=== PATIENT | male | born 1940 | race Caucasian/White ===

== ENCOUNTER → 2018-03-17 08:37 | Outpatient (CLI) | payer OTHER, SELFPAY ==
--- NOTE | 2018-03-17 | DI.RAD.S_ITS ---
PROCEDURE: XR LUMBAR SPINE 2-3V INDICATIONS: LUMBAR PAIN/HISTORY OF COMPRESSION FRACTURE TECHNIQUE: 2 views of the lumbar spine were acquired. COMPARISON: [facility], CT, L-SPINE WITHOUT CONTRAST, 09/27/2017, 8:52. [facility], MR, L-SPINE W&WO CONTRAST, 09/27/2017, 10:49. FINDINGS: Bones: 5 [id number] vertebrae are present. There is generalized osteopenia with normal bony alignment. Compared to prior exam, is a compression fracture of T11 has compressed further, now with 90% volume loss and anterior gibbous formation. A compression fracture of L1 has developed in the interim, prominent defects at the superior and inferior endplates with volume loss estimated at 33%. Prominent Schmorl's node inferior endplate L3 is unchanged. Mild compression fracture of L5 is unchanged. 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 Soft tissues: Overlying bowel gas pattern is normal. Vascular calcifications. IMPRESSION: 1. Significant loss of vertebral body height at the T11 fracture site since last exam, now near vertebral plana with gibbous formation. 2. New fracture of L1. Approximately 33% volume loss centrally. 3. Prior fracture of L5 as previously described appear unchanged. 4. Prominent Schmorl's node inferior endplate L3 unchanged. Dictated by: Ascencion Zamarripa M.D. on 03/17/2018 at 9:28 Approved by: Ascencion Zamarripa M.D. on 03/17/2018 at 9:38
== END ==
PROVIDERS: Family Provider Family Medicine; PCP Family Medicine; Visit Provider Family Medicine
DX: S32.050A Wedge compression fracture of fifth lumbar vertebra, initial encounter for closed fracture (principal); S32.010A Wedge compression fracture of first lumbar vertebra, initial encounter for closed fracture
CPT/HCPCS: 72100

== ENCOUNTER → 2018-03-31 12:09 | Outpatient (CLI) | payer OTHER, SELFPAY ==
--- NOTE | 2018-03-31 | DI.CT.S_ITS ---
PROCEDURE: CT LUMBAR SPINE WO CON INDICATIONS: COMPRESSION FRACTURES TECHNIQUE: Noncontrast 3 mm thick sections acquired from the T12 level to the sacrum. Sagittal and coronal reformats were constructed. For radiation dose reduction, the following was used: automated exposure control. COMPARISON: [facility], MR, L-SPINE W&WO CONTRAST, 09/27/2017, 10:49. [facility], CT, L-SPINE WITHOUT CONTRAST, 09/27/2017, 8:52. [facility], CR, XR LUMBAR SPINE 2-3V, 03/17/2018, 8:30. FINDINGS: Image quality: Excellent. Bones: There is normal bony alignment. No pars defects are seen. There is a likely subacute T11 compression deformity seen, with an approximately 80% loss of height anteriorly. Mild posterior displacement of fracture fragments can be seen, as on series 5 image 38, measuring 5 mm. At the inferior endplate of L1, there is a remote appearing compression deformity seen, with 30% loss of height. This is new/progressed compared to the 09/27/17 CT examination. No posterior displacement of fracture fragments can be seen. At the L5 level, there is a stable compression deformity seen, with 40% loss of height centrally. No posterior displacement of fracture fragments can be seen. T10-T11: Moderate to severe loss of disc height is seen. There is partial fusion of the vertebral bodies. There is mild to moderate right-sided and moderate left-sided neural foraminal narrowing seen. [id number] central canal narrowing is seen, which is related to the posterior displacement fracture fragments. T11-T12: Moderate loss of disc height is seen. Partial fusion of the vertebral bodies can be seen. There is moderate right-sided and no significant left-sided neural foraminal narrowing seen. The central canal is widely patent. T12-L1: The disc height is relatively well-preserved. Bridging anterior osteophytes are seen. No significant disc bulge is seen. No significant neural foraminal or central canal narrowing are seen. L1-L2: The disc height is well-preserved. Mild generalized disc bulge is seen. Moderate bilateral neural foraminal narrowing is seen. Mild central canal narrowing is seen. L2-L3: The disc height is well-preserved. Moderate disc bulge is seen, which is eccentric to the left. There is moderate bilateral neural foraminal narrowing seen, left worse than right. Moderate central canal narrowing is seen. L3-L4: The disc height is well-preserved. There is moderate bilateral neural foraminal narrowing seen, right worse than left. Moderate central canal narrowing is seen. L4-L5: The disc height is well-preserved. Nzvy-mn-ycmawusm disc bulge is seen. Moderate facet hypertrophy is seen. Cdhz-jn-liapxvwu bilateral neural foraminal narrowing is seen. At least moderate central canal narrowing is seen. L5-S1: The disc height is well-preserved. Mild generalized disc bulge is seen. Moderate facet joint hypertrophy is seen. No significant neural foraminal or central canal narrowing are seen. Soft tissues: No retroperitoneal masses or hematomas. Visualized aorta is normal in caliber. Atherosclerotic calcification is noted. IMPRESSION: Prominent T11 compression deformity, which is similar to the relatively recent prior plain film. Progression of a compression deformity at the inferior endplate of L1. Stable L5 compression deformity. Multiple levels of degenerative change are seen. Dictated by: Asael High M.D. on 03/31/2018 at 11:34 Approved by: Asael High M.D. on 03/31/2018 at 11:46
== END ==
PROVIDERS: PCP Family Medicine; Visit Provider Family Medicine
DX: M48.54XA Collapsed vertebra, not elsewhere classified, thoracic region, initial encounter for fracture (principal); M51.34 Other intervertebral disc degeneration, thoracic region
CPT/HCPCS: 72131

== ENCOUNTER 2018-04-06 11:15 | Outpatient (RCR) | payer OTHER, SELFPAY ==
--- NOTE | 2018-03-20 08:18 | PT.OIE ---
Current Diagnoses Collapsed vertebra, not elsewhere classified, cervicothoracic region, subsequent encounter for fracture with routine healing (03/14/18) Dorsalgia, unspecified (03/14/18) Provider Visit Care Team Role Provider Type Paco Bills MD Attending Provider Physician Family Provider Primary Care Provider Specialty: Family Practice Address: [address] [place] [address], [id number] Email: Physical Therapy Initial Evaluation PT-OP-A Visit Information Start: 03/15/18 08:00 Freq: Status: Active Protocol: Document 03/14/18 11:15 EA (Rec: 03/15/18 08:14 EA [id number]) Out-Patient Physical Therapy Visit Information Visit Information Visit Type Initial Evaluation Visit Start Time 10:30 Visit Stop Time 11:10 Total Visit Minutes 40 Visit Number 1 Number of MUSKRAT TRAPPER Visits 0 Evaluation Information Evaluation Date 03/14/18 PT-OP-B Current Condition Start: 03/15/18 08:00 Freq: Status: Active Protocol: Document 03/14/18 11:15 EA (Rec: 03/15/18 08:14 EA [id number]) Current Condition History of Current Condition Onset Date 09/26/18 Current Complaints Intermittent localized low and mid back pain History of Current Condition Present condition started after a fall on 09/26/18 when patient missed a steps going down the stairs hitting his left side of the body. Patient reports able to manage back pain with rest and OTC meds on the same day; however the next day patient was forced to call 911 due to extreme pain and difficulty in all mobility . Patient was brought to E.R. but was not hospitalized until they found out that he had a compression fracture. Medical reports indicated compression# to L5 and T11, Scmorl's node to L3. Patient was hospitalized at for 6 days and was then sent home without PT recommendation. Prior Treatments and Tests None. Pain medications- per patient Future Testing and Treatments Planned Will follow up with doctor at todays date. PT-OP-C Subjective Start: 03/15/18 08:00 Freq: Status: Active Protocol: Document 03/15/18 07:26 EA (Rec: 03/20/18 08:02 EA [id number]) OP-PT Subjective Patient Comments Patient Comments Patient c/o of localized mid to low back sore pain with R > left rated 7/10 at worst and with activity. Clarissa numbness to both LE's. Patient Reported Progress Same Patient Questionnaires Oswestry Low Back Index Oswestry Impairment 40 to 59% Impaired (Score 40- 59) PT-OP-F Manual Assessment Start: 03/15/18 08:00 Freq: Status: Active Protocol: Document 03/15/18 07:26 EA (Rec: 03/20/18 08:02 EA [id number]) Manual Assessments Soft Tissue Assessment Soft Tissue Mobility Assessment Tightness to both trunk side flexors, trunk flexors and rotators. Tightness to both hip flexors, pectorals, Shoulder internal rotators, neck ectensors. Joint Mobility Assessment Joint Mobility Assessment Limited joint mobility to entire spine column with muscle guarding. PT-OP-G Mobility & Gait Start: 03/15/18 08:00 Freq: Status: Active Protocol: Document 03/15/18 07:26 EA (Rec: 03/20/18 08:02 EA [id number]) OP Mobility Evaluation Bed Mobility Rolling indep with high difficulty Supine to and from Sit Indep with high difficulty Transfers Sit to Stand Indep Bed to Chair Transfers indep Functional Movements Lifting and Carrying High dificulty with pain and wrong body mechanics Squats With moderate difficulty Stair Climbing Evaluation Evaluation Level of Assist On Stairs Independent Devices Stair Climbing Assistive Devices None Technique/Endurance Stair Climbing Direction Ascend and Descend Stair Climbing Technique Step to Step PT-OP-J Posture/Palpation/Skin Start: 03/15/18 08:00 Freq: Status: Active Protocol: Document 03/15/18 07:26 EA (Rec: 03/20/18 08:02 EA [id number]) Posture Evaluation Position Standing Evaluation View Lateral Head/C-Spine Posture Forward Head T-Spine Posture Increased Kyphosis L-Spine Posture Decreased Lordosis Pelvis Posture Posterior Tilted Hip Posture (L) Flexed (R) Flexed Comments Posture Comments Severe fwd head, increased thoracic kyphosis, right shoulder depressed, right hip elevated, right post rib hump, decreased lumbar lordosis with flexed hip. Palpation Assessment Location One Palpation Location Right parathoracis, and paralumbars Palpation Findings Soft Tissue Tightness Muscle Guarding Tenderness PT-OP-K Range of Motion Start: 03/15/18 08:00 Freq: Status: Active Protocol: Document 03/15/18 07:26 EA (Rec: 03/20/18 08:02 EA [id number]) Lumbar Spine Range of Motion Lumbar Spine Active Percentage Testing Position standing Extension 30 Rotation Left 45 Rotation Right 45 Lateral Flexion Left 40 Lateral Flexion Right 50 ROM Limitations Soft Tissue Tightness Bony Restriction Pain Comments Flexion is not tested due to pre-caution. 6 months post compression# with no imaging follow up. Gross limbs AROM. Both UE's is limited with shoulder ER and Retraction. Both LE's is limited with Hip extension and IR. PT-OP-L Special Tests Start: 03/15/18 08:00 Freq: Status: Active Protocol: Document 03/15/18 07:26 EA (Rec: 03/20/18 08:02 EA [id number]) Special Tests Lumbar Spine Special Tests Other- 1 Test Results All test to lumbar and thoracic spine is not tested due to pre-caution Comments No follow up diagnostic imaging perform after the last diagnostic test. PT-OP-Q Treatments Start: 03/15/18 08:00 Freq: Status: Active Protocol: Document 03/15/18 07:26 EA (Rec: 03/20/18 08:02 EA [id number]) Self-Care/Home Management Treatment Education Patient Education Body Mechanics Pain Management Posture Safety PT-OP-T Assessment and Plan Start: 03/15/18 08:00 Freq: Status: Active Protocol: Document 03/15/18 07:26 EA (Rec: 03/20/18 08:02 EA [id number]) Physical Therapy Assessment Rehab Potential Rehabilitation Potential Fair Assessment Summary Assessment Pleasant 77 y/o male patient who was diagnosed with compression fracture at T11, L3, and L5 level on 09/27/2017 . Patient presented with difficulty in most bed mobility, limited walking and lifting mobility due to pain and muscle guarding to mid and low back region. 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 Limited ROM to entire spine may be due to fixed posture with pain and muscle gurding. Special test to spine were not performed due to lack of follow up dignostic imaging since the last imaging performed on 02/2018. In my professional opinion patient would benefit fairly with skilled PT to address the pain complaint and improve posture as tolerated. However, it is recommended that patient should undergo follow up bone imaging prior to commencing therapeutic exercises. Physical Therapy Plan Frequency and Duration Frequency of Treatment 2x/Week Plan of Care Start Date 03/14/18 Plan of Care End Date 05/10/18 Therapeutic Interventions Therapeutic Interventions Home Exercise Program Manual Therapy Self-Care/Home Management Soft Tissue Mobilization Therapeutic Exercises Modalities Cold Pack/Ice Massage Electric Stimulation Hot Packs Ultrasound Other Referrals/Consults Referrals/Consults Recommended referred back to physician for spine imaging Next Visit Focus/Plan Next Note Type Treatment Note Next Visit Plan Home exercises program with no spine flexion exercises Please Sign and Return: I have reviewed this Plan of Care and certify that the skilled therapy services above are required to meet the patient???s needs. Physician Signature Date Printed Name and Credentials Clinical Instructor Signature Printed Name and Credentials
--- NOTE | 2018-03-20 09:19 | PT.OIE ---
Current Diagnoses Collapsed vertebra, not elsewhere classified, cervicothoracic region, subsequent encounter for fracture with routine healing (03/14/18) Dorsalgia, unspecified (03/14/18) Provider Visit Care Team Role Provider Type Paco Bills MD Attending Provider Physician Family Provider Primary Care Provider Specialty: Family Practice Address: [address] [place] [address], [id number] Email: Physical Therapy Initial Evaluation PT-OP-A Visit Information Start: 03/15/18 08:00 Freq: Status: Active Protocol: Document 03/14/18 11:15 EA (Rec: 03/15/18 08:14 EA [id number]) Out-Patient Physical Therapy Visit Information Visit Information Visit Type Initial Evaluation Visit Start Time 10:30 Visit Stop Time 11:10 Total Visit Minutes 40 Visit Number 1 Number of REFERENCE AND INSTRUCTION LIBRARIAN Visits 0 Evaluation Information Evaluation Date 03/14/18 PT-OP-B Current Condition Start: 03/15/18 08:00 Freq: Status: Active Protocol: Document 03/14/18 11:15 EA (Rec: 03/15/18 08:14 EA [id number]) Current Condition History of Current Condition Onset Date 09/26/18 Current Complaints Intermittent localized low and mid back pain History of Current Condition Present condition started after a fall on 09/26/18 when patient missed a steps going down the stairs hitting his left side of the body. Patient reports able to manage back pain with rest and OTC meds on the same day; however the next day patient was forced to call 911 due to extreme pain and difficulty in all mobility . Patient was brought to E.R. but was not hospitalized until they found out that he had a compression fracture. Medical reports indicated compression# to L5 and T11, Scmorl's node to L3. Patient was hospitalized at for 6 days and was then sent home without PT recommendation. Prior Treatments and Tests None. Pain medications- per patient Future Testing and Treatments Planned Will follow up with doctor at todays date. PT-OP-C Subjective Start: 03/15/18 08:00 Freq: Status: Active Protocol: Document 03/15/18 07:26 EA (Rec: 03/20/18 08:02 EA [id number]) OP-PT Subjective Patient Comments Patient Comments Patient c/o of localized mid to low back sore pain with R > left rated 7/10 at worst and with activity. Clarissa numbness to both LE's. Patient Reported Progress Same Patient Questionnaires Oswestry Low Back Index Oswestry Impairment 40 to 59% Impaired (Score 40- 59) PT-OP-F Manual Assessment Start: 03/15/18 08:00 Freq: Status: Active Protocol: Document 03/15/18 07:26 EA (Rec: 03/20/18 08:02 EA [id number]) Manual Assessments Soft Tissue Assessment Soft Tissue Mobility Assessment Tightness to both trunk side flexors, trunk flexors and rotators. Tightness to both hip flexors, pectorals, Shoulder internal rotators, neck ectensors. Joint Mobility Assessment Joint Mobility Assessment Limited joint mobility to entire spine column with muscle guarding. PT-OP-G Mobility & Gait Start: 03/15/18 08:00 Freq: Status: Active Protocol: Document 03/15/18 07:26 EA (Rec: 03/20/18 08:02 EA [id number]) OP Mobility Evaluation Bed Mobility Rolling indep with high difficulty Supine to and from Sit Indep with high difficulty Transfers Sit to Stand Indep Bed to Chair Transfers indep Functional Movements Lifting and Carrying High dificulty with pain and wrong body mechanics Squats With moderate difficulty Stair Climbing Evaluation Evaluation Level of Assist On Stairs Independent Devices Stair Climbing Assistive Devices None Technique/Endurance Stair Climbing Direction Ascend and Descend Stair Climbing Technique Step to Step PT-OP-J Posture/Palpation/Skin Start: 03/15/18 08:00 Freq: Status: Active Protocol: Document 03/15/18 07:26 EA (Rec: 03/20/18 08:02 EA [id number]) Posture Evaluation Position Standing Evaluation View Lateral Head/C-Spine Posture Forward Head T-Spine Posture Increased Kyphosis L-Spine Posture Decreased Lordosis Pelvis Posture Posterior Tilted Hip Posture (L) Flexed (R) Flexed Comments Posture Comments Severe fwd head, increased thoracic kyphosis, right shoulder depressed, right hip elevated, right post rib hump, decreased lumbar lordosis with flexed hip. Palpation Assessment Location One Palpation Location Right parathoracis, and paralumbars Palpation Findings Soft Tissue Tightness Muscle Guarding Tenderness PT-OP-K Range of Motion Start: 03/15/18 08:00 Freq: Status: Active Protocol: Document 03/15/18 07:26 EA (Rec: 03/20/18 08:02 EA [id number]) Lumbar Spine Range of Motion Lumbar Spine Active Percentage Testing Position standing Extension 30 Rotation Left 45 Rotation Right 45 Lateral Flexion Left 40 Lateral Flexion Right 50 ROM Limitations Soft Tissue Tightness Bony Restriction Pain Comments Flexion is not tested due to pre-caution. 6 months post compression# with no imaging follow up. Gross limbs AROM. Both UE's is limited with shoulder ER and Retraction. Both LE's is limited with Hip extension and IR. PT-OP-L Special Tests Start: 03/15/18 08:00 Freq: Status: Active Protocol: Document 03/15/18 07:26 EA (Rec: 03/20/18 08:02 EA [id number]) Special Tests Lumbar Spine Special Tests Other- 1 Test Results All test to lumbar and thoracic spine is not tested due to pre-caution Comments No follow up diagnostic imaging perform after the last diagnostic test. PT-OP-Q Treatments Start: 03/15/18 08:00 Freq: Status: Active Protocol: Document 03/15/18 07:26 EA (Rec: 03/20/18 08:02 EA [id number]) Self-Care/Home Management Treatment Education Patient Education Body Mechanics Pain Management Posture Safety PT-OP-T Assessment and Plan Start: 03/15/18 08:00 Freq: Status: Active Protocol: Document 03/15/18 07:26 EA (Rec: 03/20/18 08:02 EA [id number]) Physical Therapy Assessment Rehab Potential Rehabilitation Potential Fair Evaluation Complexity Number of Personal Factors/Comorbidities 1-2 Number of Body Systems Impaired 3 Clinical Presentation at Evaluation Evolving Impairments Impairments Activity Tolerance Functional Activities Pain Posture ROM Soft Tissue Mobility Goals Four Impairment Grade 2 tenderness to parathoracis and paralumbars Radio Commentator Goal (LTG) Patient will exhibit Grade 1 or 0 tenderness to paralumbars and parathoracis to decrease guarding and improve spinal mobility. LTG Duration 4 wks. Three Impairment Improper lifting and bed mobility body mechanics Radio Commentator Goal (LTG) Patient will exhibit automatic right body mechanics with all bed mobility and lifting from floor to hip. LTG Duration 4 wks Two Impairment Low back/mid back pain complaint of 7/10 with activity. Fpc Goal (LTG) Patient will reports 3/10 pain scale at mid and low back region with activity LTG Duration 4 wks. One Impairment Severe thoracic kyphosis and posterior pelvic tilt with flat lumbar curve. Radio Commentator Goal (LTG) Patient will exhibit improve thoracic and lumbar posture posture to mild degree LTG Duration 6 wks Assessment Summary Assessment Pleasant 77 y/o male patient who was diagnosed with compression fracture at T11, L3, and L5 level on 09/27/2017 . Patient presented with difficulty in most bed mobility, limited walking and lifting mobility due to pain and muscle guarding to mid and low back region. 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 Limited ROM to entire spine may be due to fixed posture with pain and muscle guarding. Special test to spine were not performed due to lack of follow up diagnostic imaging since the last imaging performed on 02/2018. In my professional opinion patient would benefit fairly with skilled PT to address the pain complaint and improve posture as tolerated. However, it is recommended that patient should undergo follow up bone imaging prior to commencing therapeutic exercises. Physical Therapy Plan Frequency and Duration Frequency of Treatment 2x/Week Plan of Care Start Date 03/14/18 Plan of Care End Date 05/10/18 Therapeutic Interventions Therapeutic Interventions Home Exercise Program Manual Therapy Self-Care/Home Management Soft Tissue Mobilization Therapeutic Exercises Modalities Cold Pack/Ice Massage Electric Stimulation Hot Packs Ultrasound Other Referrals/Consults Referrals/Consults Recommended referred back to physician for spine imaging Next Visit Focus/Plan Next Note Type Treatment Note Next Visit Plan Home exercises program with no spine flexion exercises Please Sign and Return: I have reviewed this Plan of Care and certify that the skilled therapy services above are required to meet the patient???s needs. Physician Signature Date Printed Name and Credentials Clinical Instructor Signature Printed Name and Credentials
--- NOTE | 2018-04-07 15:45 | PT.OTN ---
Current Diagnoses Collapsed vertebra, not elsewhere classified, cervicothoracic region, subsequent encounter for fracture with routine healing (04/06/18) Dorsalgia, unspecified (04/06/18) Physical Therapy Treatment Note PT-OP-A Visit Information Start: 03/15/18 08:00 Freq: Status: Active Protocol: Document 04/06/18 11:15 AMB (Rec: 04/07/18 07:25 AMB [id number]) Out-Patient Physical Therapy Visit Information Visit Information Visit Type Treatment Note Visit Start Time 11:15 Visit Stop Time 12:00 Total Visit Minutes 45 Visit Number 2 Evaluation Information Evaluation Date 03/14/18 PT-OP-B Current Condition Start: 03/15/18 08:00 Freq: Status: Active Protocol: Document 03/14/18 11:15 EA (Rec: 03/15/18 08:14 EA [id number]) Current Condition History of Current Condition Onset Date 09/26/18 Current Complaints Intermittent localized low and mid back pain History of Current Condition Present condition started after a fall on 09/26/18 when patient missed a steps going down the stairs hitting his left side of the body. Patient reports able to manage back pain with rest and OTC meds on the same day; however the next day patient was forced to call 911 due to extreme pain and difficulty in all mobility . Patient was brought to E.R. but was not hospitalized until they found out that he had a compression fracture. Medical reports indicated compression# to L5 and T11, Scmorl's node to L3. Patient was hospitalized at for 6 days and was then sent home without PT recommendation. Prior Treatments and Tests None. Pain medications- per patient Future Testing and Treatments Planned Will follow up with doctor at todays date. PT-OP-C Subjective Start: 03/15/18 08:00 Freq: Status: Active Protocol: Document 04/06/18 11:15 AMB (Rec: 04/07/18 07:25 AMB [id number]) OP-PT Subjective Patient Comments Patient Comments Pt attends with CT and X-ray, reports also reviewed in [facility]. Pt feels pain is quite bad still, maybe worse in the last week, but not sure why. Sleeps well, but pain in low back with bed mobility. Walking about a mile, but very hunched forward. PT-OP-F Manual Assessment Start: 03/15/18 08:00 Freq: Status: Active Protocol: Document 03/15/18 07:26 EA (Rec: 03/20/18 08:02 EA [id number]) Manual Assessments Soft Tissue Assessment Soft Tissue Mobility Assessment Tightness to both trunk side flexors, trunk flexors and rotators. Tightness to both hip flexors, pectorals, Shoulder internal rotators, neck ectensors. Joint Mobility Assessment Joint Mobility Assessment Limited joint mobility to entire spine column with muscle guarding. PT-OP-G Mobility & Gait Start: 03/15/18 08:00 Freq: Status: Active Protocol: Document 03/15/18 07:26 EA (Rec: 03/20/18 08:02 EA [id number]) OP Mobility Evaluation Bed Mobility Rolling indep with high difficulty Supine to and from Sit Indep with high difficulty Transfers Sit to Stand Indep Bed to Chair Transfers indep Functional Movements Lifting and Carrying High dificulty with pain and wrong body mechanics Squats With moderate difficulty Stair Climbing Evaluation Evaluation Level of Assist On Stairs Independent Devices Stair Climbing Assistive Devices None Technique/Endurance Stair Climbing Direction Ascend and Descend Stair Climbing Technique Step to Step PT-OP-J Posture/Palpation/Skin Start: 03/15/18 08:00 Freq: Status: Active Protocol: Document 03/15/18 07:26 EA (Rec: 03/20/18 08:02 EA [id number]) Posture Evaluation Position Standing Evaluation View Lateral Head/C-Spine Posture Forward Head T-Spine Posture Increased Kyphosis L-Spine Posture Decreased Lordosis Pelvis Posture Posterior Tilted Hip Posture (L) Flexed (R) Flexed Comments Posture Comments Severe fwd head, increased thoracic kyphosis, right shoulder depressed, right hip elevated, right post rib hump, decreased lumbar lordosis with flexed hip. Palpation Assessment Location One Palpation Location Right parathoracis, and paralumbars Palpation Findings Soft Tissue Tightness Muscle Guarding Tenderness PT-OP-K Range of Motion Start: 03/15/18 08:00 Freq: Status: Active Protocol: Document 03/15/18 07:26 EA (Rec: 03/20/18 08:02 EA [id number]) Lumbar Spine Range of Motion Lumbar Spine Active Percentage Testing Position standing Extension 30 Rotation Left 45 Rotation Right 45 Lateral Flexion Left 40 Lateral Flexion Right 50 ROM Limitations Soft Tissue Tightness Bony Restriction Pain Comments Flexion is not tested due to pre-caution. 6 months post compression# with no imaging follow up. Gross limbs AROM. Both UE's is limited with shoulder ER and Retraction. Both LE's is limited with Hip extension and IR. PT-OP-L Special Tests Start: 03/15/18 08:00 Freq: Status: Active Protocol: Document 03/15/18 07:26 EA (Rec: 03/20/18 08:02 EA [id number]) Special Tests Lumbar Spine Special Tests Other- 1 Test Results All test to lumbar and thoracic spine is not tested due to pre-caution Comments No follow up diagnostic imaging perform after the last diagnostic test. PT-OP-Q Treatments Start: 03/15/18 08:00 Freq: Status: Active Protocol: Document 04/06/18 11:15 AMB (Rec: 04/07/18 07:32 AMB [email or web address]) Therapeutic Exercises Supine Exercises 5 Supine Exercise Name hamstring stretch Side bilateral Comments passive 4 Supine Exercise Name hip flexor stretch Side bilateral Comments passive 3 Supine Exercise Name hooklying marches Side bilateral 2 Supine Exercise Name trunk rotation Comments very small ROM, hooklying 1 Supine Exercise Name heel slides Side bilateral Standing Exercises 1 Standing Exercise Name wall posture Comments may use towel/pillow due to spinous process on wall discomfort Therapeutic Activity Therapeutic Activity 1 Name Bed mobility Comments rolling, sidelying to sit PT-OP-R Modalities Start: 03/15/18 08:00 Freq: Status: Active Protocol: Document 04/06/18 11:15 AMB (Rec: 04/07/18 07:32 AMB [email or web address]) Electric Stimulation Electric Stimulation Interferential Current (IFC) Body Location low back Duration (Minutes) 10 Patient Position Sitting Combined With Heat/Cold Hot Pack PT-OP-T Assessment and Plan Start: 03/15/18 08:00 Freq: Status: Active Protocol: Document 04/06/18 11:15 AMB (Rec: 04/07/18 07:27 AMB [email or web address]) Physical Therapy Assessment Assessment Summary Assessment Pt did not tolerate hooklying (with wedge and 4 pillows) very well. States that he can tolerate being supine in his bed. Will progress exercises in seated and standing, working on upright posture avoiding trunk flexion. Physical Therapy Plan Frequency and Duration Frequency of Treatment 2x/Week Plan of Care Start Date 03/14/18 Plan of Care End Date 05/10/18 Next Visit Focus/Plan Next Note Type Treatment Note Next Visit Plan progress core stability, body mechanics, avoiding supine for now Please Sign and Return: I have reviewed this Plan of Care and certify that the skilled therapy services above are required to meet the patient?s needs. Physician Signature Date Printed Name and Credentials Clinical Instructor Signature Printed Name and Credentials
--- NOTE | 2018-06-12 12:34 | PT.OPDS ---
Current Diagnoses Collapsed vertebra, not elsewhere classified, cervicothoracic region, subsequent encounter for fracture with routine healing (04/06/18) Dorsalgia, unspecified (04/06/18) Provider Visit Care Team Role Provider Type Paco Bills MD Attending Provider Physician Family Provider Primary Care Provider Specialty: Family Practice Address: [address] [place] [address], [phone] Email: Visit Number Visit Number 2 Discharge Summary PT-OP-B Current Condition Start: 03/15/18 08:00 Freq: Status: Active Protocol: Document 03/14/18 11:15 EA (Rec: 03/15/18 08:14 EA [id number]) Current Condition History of Current Condition Onset Date 09/26/18 Current Complaints Intermittent localized low and mid back pain History of Current Condition Present condition started after a fall on 09/26/18 when patient missed a steps going down the stairs hitting his left side of the body. Patient reports able to manage back pain with rest and OTC meds on the same day; however the next day patient was forced to call 911 due to extreme pain and difficulty in all mobility . Patient was brought to E.R. but was not hospitalized until they found out that he had a compression fracture. Medical reports indicated compression# to L5 and T11, Scmorl's node to L3. Patient was hospitalized at for 6 days and was then sent home without PT recommendation. Prior Treatments and Tests None. Pain medications- per patient Future Testing and Treatments Planned Will follow up with doctor at todays date. PT-OP-C Subjective Start: 03/15/18 08:00 Freq: Status: Active Protocol: Document 06/12/18 12:32 EA (Rec: 06/12/18 12:34 EA [id number]) OP-PT Subjective Patient Comments Patient Comments Pt did not return call in the past weeks though rfp writer left a message twice. Patient is no longer attending PT and has not been scheduled since the initial tretament. PT-OP-F Manual Assessment Start: 03/15/18 08:00 Freq: Status: Active Protocol: Document 03/15/18 07:26 EA (Rec: 03/20/18 08:02 EA [id number]) Manual Assessments Soft Tissue Assessment Soft Tissue Mobility Assessment Tightness to both trunk side flexors, trunk flexors and rotators. Tightness to both hip flexors, pectorals, Shoulder internal rotators, neck ectensors. Joint Mobility Assessment Joint Mobility Assessment Limited joint mobility to entire spine column with muscle guarding. PT-OP-G Mobility & Gait Start: 03/15/18 08:00 Freq: Status: Active Protocol: Document 03/15/18 07:26 EA (Rec: 03/20/18 08:02 EA [id number]) OP Mobility Evaluation Bed Mobility Rolling indep with high difficulty Supine to and from Sit Indep with high difficulty Transfers Sit to Stand Indep Bed to Chair Transfers indep Functional Movements Lifting and Carrying High dificulty with pain and wrong body mechanics Squats With moderate difficulty Stair Climbing Evaluation Evaluation Level of Assist On Stairs Independent Devices Stair Climbing Assistive Devices None Technique/Endurance Stair Climbing Direction Ascend and Descend Stair Climbing Technique Step to Step PT-OP-J Posture/Palpation/Skin Start: 03/15/18 08:00 Freq: Status: Active Protocol: Document 03/15/18 07:26 EA (Rec: 03/20/18 08:02 EA [id number]) Posture Evaluation Position Standing Evaluation View Lateral Head/C-Spine Posture Forward Head T-Spine Posture Increased Kyphosis L-Spine Posture Decreased Lordosis Pelvis Posture Posterior Tilted Hip Posture (L) Flexed (R) Flexed Comments Posture Comments Severe fwd head, increased thoracic kyphosis, right shoulder depressed, right hip elevated, right post rib hump, decreased lumbar lordosis with flexed hip. Palpation Assessment Location One Palpation Location Right parathoracis, and paralumbars Palpation Findings Soft Tissue Tightness Muscle Guarding Tenderness PT-OP-K Range of Motion Start: 03/15/18 08:00 Freq: Status: Active Protocol: Document 03/15/18 07:26 EA (Rec: 03/20/18 08:02 EA [id number]) Lumbar Spine Range of Motion Lumbar Spine Active Percentage Testing Position standing Extension 30 Rotation Left 45 Rotation Right 45 Lateral Flexion Left 40 Lateral Flexion Right 50 ROM Limitations Soft Tissue Tightness Bony Restriction Pain Comments Flexion is not tested due to pre-caution. 6 months post compression# with no imaging follow up. Gross limbs AROM. Both UE's is limited with shoulder ER and Retraction. Both LE's is limited with Hip extension and IR. PT-OP-L Special Tests Start: 03/15/18 08:00 Freq: Status: Active Protocol: Document 03/15/18 07:26 EA (Rec: 03/20/18 08:02 EA [id number]) Special Tests Lumbar Spine Special Tests Other- 1 Test Results All test to lumbar and thoracic spine is not tested due to pre-caution Comments No follow up diagnostic imaging perform after the last diagnostic test. PT-OP-T Assessment and Plan Start: 03/15/18 08:00 Freq: Status: Active Protocol: Document 06/12/18 12:32 EA (Rec: 06/12/18 12:34 EA [id number]) Physical Therapy Assessment Assessment Summary Assessment Pt is discharge to PT due to not attending PT session. Physical Therapy Plan Discharge Physical Therapy Discharge Reasons No Longer Attending PT
== END 2018-08-04 09:06 ==
LOC: PHYS 11:15
PROVIDERS: Family Provider Family Medicine; PCP Family Medicine; Visit Provider Family Medicine
DX: M54.9 Dorsalgia, unspecified (principal); M48.53XD Collapsed vertebra, not elsewhere classified, cervicothoracic region, subsequent encounter for fracture with routine healing
CPT/HCPCS: 97014; 97110; 97162; 97535; G0283

== ENCOUNTER 2019-02-05 11:12 | Emergency (ER) | payer OTHER, SELFPAY ==
[2019-02-05 11:24] VITALS: BP 110/57; PULSE 54; RESP 18; TEMP 36.7; O2SAT 100
--- NOTE | 2019-02-05 11:27 | DI.RAD.S_ITS ---
PROCEDURE: XR CHEST 1V INDICATIONS: chest pain TECHNIQUE: One view of the chest was acquired. COMPARISON: [facility], , CHEST 2 VIEW, 12/14/2016, 10:20. FINDINGS: Surgical changes and devices: None. Lungs and pleura: Mild pulmonary vascular congestion is seen. No pleural effusions or pneumothorax. Mediastinum: Torturous thoracic aorta is seen. Heart size is normal. Bones and chest wall: No suspicious bony lesions. Overlying soft tissues appear unremarkable. IMPRESSION: Cardiomegaly and mild congestion. No focal infiltrate or gross pneumothorax. Dictated by: Trav De Jesus M.D. on 02/05/2019 at 11:45 Approved by: Trav De Jesus M.D. on 02/05/2019 at 11:45
[2019-02-05 11:28] VITALS: BP 73/49; PULSE 55; RESP 21; O2SAT 97
[2019-02-05 11:30] VITALS: BP 79/52; PULSE 54; PULSE 56; RESP 18; RESP 21; O2SAT 97
--- NOTE | 2019-02-05 11:43 | ED.CHESTPAIN ---
HPI - Chest Pain General Chief Complaint: Chest Pain Stated Complaint: States he thinks he is having a heart attack Time Seen by Provider: 02/05/19 11:43 Source: patient Mode of arrival: ambulatory Limitations: no limitations History of Present Illness HPI narrative: This is a 78-year-old male comes to the emergency department with complaint of sudden onset of neck pressure that has now radiating to the chest. Patient states that it is quite uncomfortable. Patient denies a little bit of shortness of breath. He states he was very clammy when it started. Patient states that he has felt nauseated but has not vomited. He denies any radiation to his back and states that the neck discomfort was more of a pressure. He denies any abdominal pain. Patient states that he has had every test known but is unsure if has had a cardiac catheterization but he is unsure, he does not know of any coronary artery disease. He does not take any medications for blood pressure. Patient denies any other past medical problems. He does not take any medications regularly. Patient states no surgeries besides a hip replacement. He does feel little bit short of breath. He states that he feels terrible but that his mind feels intact. Related Data Home Medications Medication Instructions Recorded Confirmed No Known Home Medications 02/05/19 02/05/19 Allergies Allergy/AdvReac Type Severity Reaction Status Date / Time Penicillins [PENICILLINS] Allergy Severe LIKE Unverified 02/01/18 12:02 GOING INTO SHOCK Review of Systems Review of Systems ROS Unobtainable: All systems reviewed & are unremarkable except as noted in HPI and below Constitutional Reports excessive sweating and Reports fatigue Cardiovascular Reports chest pain, Reports diaphoresis, Denies syncope, Denies rapid heart rate, Denies edema, Denies irregular heart rhythm, Denies lightheadedness, Reports radiating jaw, neck or arm pain (started in neck with pressure), Denies palpitations, Denies dyspnea, Denies dyspnea on exertion and Denies orthopnea Respiratory Denies chest congestion, Denies cough, Denies dyspnea, Denies dyspnea on exertion and Denies wheezing Gastrointestinal Gastrointestinal: Denies abdominal pain, Denies change in bowel habits, Denies diarrhea, Reports nausea and Denies vomiting Musculoskeletal Denies back pain Neurologic Denies syncope Endocrine Reports excessive sweating, Reports fatigue and Denies palpitations Allergic/Immunologic Denies wheezing [facility] Surgical History (Updated 02/05/19 @ 11:58 by Nadja Nunn DO) S/P hip replacement (Chronic) Social History Smoking Status: Former smoker Social History Smoking Status: Former smoker Exam Narrative Exam Narrative: GENERAL: Alert and oriented x three, thin, pale male in moderate distress. patient appears uncomfortable on exam and grabs at chest. HEENT: Head normocephalic, atraumatic, EOMI, pupils reactive, face symmetric, moist mucous membranes NECK: Supple, full range of motion CARDIOVASCULAR: Regular rate and rhythm without murmurs, rubs or gallops. RESPIRATORY: Breath sounds equal bilaterally, no wheezes rales or rhonchi. ABDOMEN: Soft, nontender. Normoactive bowel sounds all 4 quadrants. No guarding or rebound, rigidity, no mass. No pulsatile mass or bruit. : No CVA tenderness EXTREMITIES: Normal range of motion, no clubbing or edema. Neurovascularly intact. 2+ pulses bilateral upper extremities. NEUROLOGICAL: Cranial nerves II through XII grossly intact. Moving all extremities SKIN: Warm, dry, no petechiae, no rashes or lesions. Initial Vital Signs Initial Vital Signs: Vital Signs Temperature 98.1 F 02/05/19 11:24 Pulse Rate 54 L 02/05/19 11:24 Respiratory Rate 18 02/05/19 11:24 Blood Pressure 110/57 L 02/05/19 11:24 Pulse Oximetry 100 02/05/19 11:24 Course Orders Ordered: ED Orders 02/05/19 11:17 EKG-12 Lead Stat 02/05/19 11:27 XR chest 1V Stat 02/05/19 11:35 Complete Blood Count AUTO DIFF Stat Comprehensive Metabolic Panel Stat Lipase Stat Partial Thromboplastin Time Stat Prothrombin Time INR Stat Troponin & CK Cardiac Panel Stat 02/05/19 11:39 EKG-12 Lead Stat Discontinued Medications Aspirin (Aspirin Chew) 324 mg PO NOW ONE Stop: 02/05/19 11:28 Last Admin: 02/05/19 11:48 Dose: 324 mg Fentanyl (Sublimaze) 25 mcg IV NOW ONE Stop: 02/05/19 11:50 Last Admin: 02/05/19 11:50 Dose: 25 mcg Fentanyl (Sublimaze) 25 mcg IV Q1H PRN PRN Reason: Pain, Severe (7-10) Last Admin: 02/05/19 12:05 Dose: 25 mcg Heparin Sodium (Porcine) (Heparin) 4,000 unit IV NOW ONE Stop: 02/05/19 11:53 Last Admin: 02/05/19 11:54 Dose: 4,000 unit Heparin Sodium/Dextrose (Heparin Drip) 25,000 unit in 500 mls @ 17.04 mls/hr IV CONT LAKSHMI; Protocol Last Infusion: 02/05/19 12:08 Dose: 0 units/kg/hr, 0 mls/hr Admin: 02/05/19 11:57 Dose: 12 units/kg/hr, 17.04 mls/hr Nitroglycerin (Nitrostat) 0.4 mg SL [id number] PRN PRN Reason: Chest Pain Vital Signs - 8 hr 02/05/19 11:24 02/05/19 11:28 02/05/19 11:30 Temperature 98.1 F Pulse Rate 54 L 55 L 56 L Respiratory Rate 18 21 21 Blood Pressure 110/57 L Blood Pressure [Right Arm] 73/49 L 79/52 L Pulse Oximetry 100 97 97 02/05/19 11:45 02/05/19 12:00 Temperature Pulse Rate 56 L 70 Respiratory Rate 22 20 Blood Pressure Blood Pressure [Right Arm] 83/53 L 112/65 Pulse Oximetry 99 99 MDM - Chest Pain Lab Data Result diagrams: 02/05/19 11:35 02/05/19 11:35 Lab Results 02/05/19 02/05/19 02/05/19 Range/Units 11:35 11:35 11:35 WBC 6.3 (4.5-11.0) X10^3/uL RBC 4.37 L (4.5-5.9) X10^6/uL Hgb 14.7 (13.5-17.5) g/dL Hct 42.9 (41-53) % MCV 98.1 (80-100) fL MCH 33.6 (26-34) PG MCHC 34.3 (30-36) % RDW 12.8 (11.6-14.8) % Plt Count 203 (150-400) X10^3/uL Neut % (Auto) 70.6 (50-75) % Lymph % (Auto) 19.0 L (25-40) % [place] % (Auto) 8.6 (3-14) % Eos % (Auto) 1.1 L (2-4) % Baso % (Auto) 0.7 (0-2) % Neut # (Auto) 4400 (9483-3284) /uL Lymph # (Auto) 1200 (2712-4775) /uL [place] # (Auto) 500 (0-900) /uL Eos # (Auto) 100 (0-450) /uL Baso # (Auto) 0 (0-100) /uL PT 11.7 (10.1-12.7) SECONDS INR 1.0 (0.9-1.3) APTT 27 (26.4-36.2) SECONDS Sodium 137 (137-145) mmol/L Potassium 4.0 (3.4-5.1) mmol/L Chloride 101 (98-107) mmol/L Carbon Dioxide 25 (22-32) mmol/L BUN 21 H (9-20) mg/dL Creatinine 0.80 (0.66-1.25) mg/dL Estimated GFR > 60.0 (>60) mL/min BUN/Creatinine Ratio 26.3 H (6-22) Glucose 134 H (80-110) mg/dL Calcium 9.1 (8.4-10.2) mg/dL Total Bilirubin 0.6 (0.2-1.3) mg/dL AST 28 (17-59) IU/L ALT 25 (21-72) IU/L Alkaline Phosphatase 84 (38-126) U/L Total Creatine Kinase 68 (55-170) U/L CK-MB (CK-2) TNP CK-MB (CK-2) Rel Index TNP Troponin I < 0.012 (0.01-0.034) ng/mL Total Protein 7.5 (6.3-8.2) g/dL Albumin 4.2 (3.5-5.0) g/dL Globulin 3.3 (1.7-4.1) g/dL Albumin/Globulin Ratio 1.3 (1.0-2.8) Lipase 63 (23-300) U/L Imaging Data Chest x-ray: Radiologist's impression: Renard Iniguez M [address] [address] XRay Report Signed Patient: Renard Iniguez HMR#: [id number] : 1940cct:[id number] Age/Sex: 78 / MDate of Service: 02/05/19 Loc: ED Accession Number: [id number] Procedure: XR chest 1V Ordering Provider: Nadja Nunn D.O. PROCEDURE: XR CHEST 1V INDICATIONS: chest pain TECHNIQUE: One view of the chest was acquired. COMPARISON: [facility], , CHEST 2 VIEW, 12/14/2016, 10:20. FINDINGS: Surgical changes and devices: None. Lungs and pleura: Mild pulmonary vascular congestion is seen. No pleural effusions or pneumothorax. Mediastinum: Torturous thoracic aorta is seen. Heart size is normal. Bones and chest wall: No suspicious bony lesions. Overlying soft tissues appear unremarkable. IMPRESSION: Cardiomegaly and mild congestion. No focal infiltrate or gross pneumothorax. Dictated by: Trav De Jesus M.D. on 02/05/2019 at 11:45 Approved by: Trav De Jesus M.D. on 02/05/2019 at 11:45 ECG Data Attestation: I personally reviewed and interpreted this ECG as follows: Prior ECG tracings: available for review Interpretation: EKG 1. Shows sinus rhythm with ventricular rate of 66 and APR interval 182, QRS 87 QTC of 403. Patient has possibly some ST elevation in V2 appears to have a Q-wave in 2 3 and AVF. No depression appreciated. EKG 2. Shows sinus bradycardia with a rate of 56 APR interval 193 a QRS of 93 and a QTC of 433. Patient appears to have ST elevation in leads 1 and 2 as well as V2 V3, no depression appreciated. patient has a prior EKG from 01/11 2017 which is sinus rhythm without any ST changes. [facility] Narrative Medical decision making narrative: Patient comes in with complaint of chest pain that started over the last several hours. He has new EKG changes with evolving changes on EKG here in the department. Patient was given aspirin 324 mg. He was hypotensive so nitro was not given. Patient did receive fentanyl for chest pain. placed on O2. He was given a 4000 unit heparin bolus. Spoke with Dr. Lynch from [facility] and patient was transported for [facility] called back and requested right sided EKG, faxed copy although difficulty to obtain with motion. Critical Care Time Critical Care Time: Yes Total Critical Care Time: 35 Attestation: The high probability of a clinically significant, sudden or life threatening deterioration of the [35] system(s) required my full and direct attention, intervention and personal management. The aggregate critical care time was [cardiac] minutes. This time is in addition to time spent performing reported procedures but includes the following: [x] Data Review and interpretation [x] Patient assessment and monitoring of vital signs [x] Documentation [x] Medication orders and management Discharge Plan Departure Patient Disposition: [facility] Clinical Impression: ST elevation (STEMI) myocardial infarction Discharge Date/Time: 02/05/19 12:08 Interventions: ED Discharge Assessment Last Done: 02/05/19 12:20 Prescriptions: No Action No Known Home Medications RF: 0 Referrals: Paco Bills MD [Primary Care Provider] -
[2019-02-05 11:45] VITALS: BP 83/53; PULSE 56; RESP 22; O2SAT 99
[2019-02-05] MEDS: ASPIRIN 81 MG TAB 324 MG PO (11:48)
[2019-02-05] MEDS: fentaNYL 100 MCG/2 ML INJ 25 MCG IV ×2 (11:50→12:05)
--- NOTE | 2019-02-05 11:50 | ED_ITS ---
HPI - Chest Pain General Chief Complaint: Chest Pain Stated Complaint: States he thinks he is having a heart attack Time Seen by Provider: 02/05/19 11:43 Source: patient Mode of arrival: ambulatory Limitations: no limitations History of Present Illness HPI narrative: This is a 78-year-old male comes to the emergency department with complaint of sudden onset of neck pressure that has now radiating to the chest. Patient states that it is quite uncomfortable. Patient denies a little bit of shortness of breath. He states he was very clammy when it started. Patient states that he has felt nauseated but has not vomited. He denies any radiation to his back and states that the neck discomfort was more of a pressure. He denies any abdominal pain. Patient states that he has had every test known but is unsure if has had a cardiac catheterization but he is unsure, he does not know of any coronary artery disease. He does not take any medications for blood pressure. Patient denies any other past medical problems. He does not take any medications regularly. Patient states no surgeries besides a hip replacement. He does feel little bit short of breath. He states that he feels terrible but that his mind feels intact. Related Data Home Medications Medication Instructions Recorded Confirmed No Known Home Medications 02/05/19 02/05/19 Allergies Allergy/AdvReac Type Severity Reaction Status Date / Time Penicillins [PENICILLINS] Allergy Severe LIKE Unverified 02/01/18 12:02 GOING INTO SHOCK Review of Systems Review of Systems ROS Unobtainable: All systems reviewed & are unremarkable except as noted in HPI and below Constitutional Reports excessive sweating and Reports fatigue Cardiovascular Reports chest pain, Reports diaphoresis, Denies syncope, Denies rapid heart rate, Denies edema, Denies irregular heart rhythm, Denies lightheadedness, Reports radiating jaw, neck or arm pain (started in neck with pressure), Denies palpitations, Denies dyspnea, Denies dyspnea on exertion and Denies orthopnea Respiratory Denies chest congestion, Denies cough, Denies dyspnea, Denies dyspnea on exe rtion and Denies wheezing Gastrointestinal Gastrointestinal: Denies abdominal pain, Denies change in bowel habits, Denies diarrhea, Reports nausea and Denies vomiting Musculoskeletal Denies back pain Neurologic Denies syncope Endocrine Reports excessive sweating, Reports fatigue and Denies palpitations Allergic/Immunologic Denies wheezing [facility] Surgical History (Updated 02/05/19 @ 11:58 by Nadja Nunn DO) S/P hip replacement (Chronic) Social History Smoking Status: Former smoker Social History Smoking Status: Former smoker Exam Narrative Exam Narrative: GENERAL: Alert and oriented x three, thin, pale male in moderate distress. patient appears uncomfortable on exam and grabs at chest. HEENT: Head normocephalic, atraumatic, EOMI, pupils reactive, face symmetric, moist mucous membranes NECK: Supple, full range of motion CARDIOVASCULAR: Regular rate and rhythm without murmurs, rubs or gallops. RESPIRATORY: Breath sounds equal bilaterally, no wheezes rales or rhonchi. ABDOMEN: Soft, nontender. Normoactive bowel sounds all 4 quadrants. No guarding or rebound, rigidity, no mass. No pulsatile mass or bruit. : No CVA tenderness EXTREMITIES: Normal range of motion, no clubbing or edema. Neurovascularly intact. 2+ pulses bilateral upper extremities. NEUROLOGICAL: Cranial nerves II through XII grossly intact. Moving all extremities SKIN: Warm, dry, no petechiae, no rashes or lesions. Initial Vital Signs Initial Vital Signs: Vital Signs Temperature 98.1 F 02/05/19 11:24 Pulse Rate 54 L 02/05/19 11:24 Respiratory Rate 18 02/05/19 11:24 Blood Pressure 110/57 L 02/05/19 11:24 Pulse Oximetry 100 02/05/19 11:24 Course Orders Ordered: ED Orders 02/05/19 11:17 EKG-12 Lead Stat 02/05/19 11:27 XR chest 1V Stat 02/05/19 11:35 Complete Blood Count AUTO DIFF Stat Comprehensive Metabolic Panel Stat Lipase Stat Partial Thromboplastin Time Stat Prothrombin Time INR Stat Troponin & CK Cardiac Panel Stat 02/05/19 11:39 EKG-12 Lead Stat Discontinued Medications Aspirin (Aspirin Chew) 324 mg PO NOW ONE Stop: 02/05/19 11:28 Last Admin: 02/05/19 11:48 Dose: 324 mg Fentanyl (Sublimaze) 25 mcg IV NOW ONE Stop: 02/05/19 11:50 Last Admin: 02/05/19 11:50 Dose: 25 mcg Fentanyl (Sublimaze) 25 mcg IV Q1H PRN PRN Reason: Pain, Severe (7-10) Last Admin: 02/05/19 12:05 Dose: 25 mcg Heparin Sodium (Porcine) (Heparin) 4,000 unit IV NOW ONE Stop: 02/05/19 11:53 Last Admin: 02/05/19 11:54 Dose: 4,000 unit Heparin Sodium/Dextrose (Heparin Drip) 25,000 unit in 500 mls @ 17.04 mls/hr IV CONT LAKSHMI; Protocol Last Infusion: 02/05/19 12:08 Dose: 0 units/kg/hr, 0 mls/hr Admin: 02/05/19 11:57 Dose: 12 units/kg/hr, 17.04 mls/hr Nitroglycerin (Nitrostat) 0.4 mg SL [id number] PRN PRN Reason: Chest Pain Vital Signs - 8 hr 02/05/19 11:24 02/05/19 11:28 02/05/19 11:30 Temperature 98.1 F Pulse Rate 54 L 55 L 56 L Respiratory Rate 18 21 21 Blood Pressure 110/57 L Blood Pressure [Right Arm] 73/49 L 79/52 L Pulse Oximetry 100 97 97 02/05/19 11:45 02/05/19 12:00 Temperature Pulse Rate 56 L 70 Respiratory Rate 22 20 Blood Pressure Blood Pressure [Right Arm] 83/53 L 112/65 Pulse Oximetry 99 99 MDM - Chest Pain Lab Data Result diagrams: 02/05/19 11:35 02/05/19 11:35 Lab Results 02/05/19 02/05/19 02/05/19 Range/Units 11:35 11:35 11:35 WBC 6.3 (4.5-11.0) X10^3/uL RBC 4.37 L (4.5-5.9) X10^6/uL Hgb 14.7 (13.5-17.5) g/dL Hct 42.9 (41-53) % MCV 98.1 (80-100) fL MCH 33.6 (26-34) PG MCHC 34.3 (30-36) % RDW 12.8 (11.6-14.8) % Plt Count 203 (150-400) X10^3/uL Neut % (Auto) 70.6 (50-75) % Lymph % (Auto) 19.0 L (25-40) % [place] % (Auto) 8.6 (3-14) % Eos % (Auto) 1.1 L (2-4) % Baso % (Auto) 0.7 (0-2) % Neut # (Auto) 4400 (2322-3398) /uL Lymph # (Auto) 1200 (4186-9060) /uL [place] # (Auto) 500 (0-900) /uL Eos # (Auto) 100 (0-450) /uL Baso # (Auto) 0 (0-100) /uL PT 11.7 (10.1-12.7) SECONDS INR 1.0 (0.9-1.3) APTT 27 (26.4-36.2) SECONDS Sodium 137 (137-145) mmol/L Potassium 4.0 (3.4-5.1) mmol/L Chloride 101 (98-107) mmol/L Carbon Dioxide 25 (22-32) mmol/L BUN 21 H (9-20) mg/dL Creatinine 0.80 (0.66-1.25) mg/dL Estimated GFR > 60.0 (>60) mL/min BUN/Creatinine Ratio 26.3 H (6-22) Glucose 134 H (80-110) mg/dL Calcium 9.1 (8.4-10.2) mg/dL Total Bilirubin 0.6 (0.2-1.3) mg/dL AST 28 (17-59) IU/L ALT 25 (21-72) IU/L Alkaline Phosphatase 84 (38-126) U/L Total Creatine Kinase 68 (55-170) U/L CK-MB (CK-2) TNP CK-MB (CK-2) Rel Index TNP Troponin I < 0.012 (0.01-0.034) ng/mL Total Protein 7.5 (6.3-8.2) g/dL Albumin 4.2 (3.5-5.0) g/dL Globulin 3.3 (1.7-4.1) g/dL Albumin/Globulin Ratio 1.3 (1.0-2.8) Lipase 63 (23-300) U/L Imaging Data Chest x-ray: Radiologist's impression: Renard Iniguez Kirsten 1940 [address] [address] XRay Report Signed Patient: Renard Iniguez HMR#: [id number] : 1940cct:[id number] Age/Sex: 78 / MDate of Service: 02/05/19 Loc: ED Accession Number: [id number] Procedure: XR chest 1V Ordering Provider: Nadja Nunn D.O. PROCEDURE: XR CHEST 1V INDICATIONS: chest pain TECHNIQUE: One view of the chest was acquired. COMPARISON: [facility], , CHEST 2 VIEW, 12/14/2016, 10:20. FINDINGS: Surgical changes and devices: None. Lungs and pleura: Mild pulmonary vascular congestion is seen. No pleural effusions or pneumothorax. Mediastinum: Torturous thoracic aorta is seen. Heart size is normal. Bones and chest wall: No suspicious bony lesions. Overlying soft tissues appear unremarkable. IMPRESSION: Cardiomegaly and mild congestion. No focal infiltrate or gross pneumothorax. Dictated by: Trav De Jesus M.D. on 02/05/2019 at 11:45 Approved by: Trva De Jesus M.D. on 02/05/2019 at 11:45 ECG Data Attestation: I personally reviewed and interpreted this ECG as follows: Prior ECG tracings: available for review Interpretation: EKG 1. Shows sinus rhythm with ventricular rate of 66 and APR interval 182, QRS 87 QTC of 403. Patient has possibly some ST elevation in V2 appears to have a Q-wave in 2 3 and AVF. No depression appreciated. EKG 2. Shows sinus bradycardia with a rate of 56 APR interval 193 a QRS of 93 and a QTC of 433. Patient appears to have ST elevation in leads 1 and 2 as well as V2 V3, no depression appreciated. patient has a prior EKG from 01/11 2017 which is sinus rhythm without any ST changes. [facility] Narrative Medical decision making narrative: Patient comes in with complaint of chest pain that started over the last several hours. He has new EKG changes with evolving changes on EKG here in the department. Patient was given aspirin 324 mg. He was hypotensive so nitro was not given. Patient did receive fentanyl for chest pain. placed on O2. He was given a 4000 unit heparin bolus. Spoke with Dr. Lynch from [facility] and patient was transported for ST elevated PA. [facility] called back and requested right sided EKG, faxed copy although difficulty to obtain with motion. Critical Care Time Critical Care Time: Yes Total Critical Care Time: 35 Attestation: The high probability of a clinically significant, sudden or life threatening deterioration of the [35] system(s) required my full and direct attention, intervention and personal management. The aggregate critical care time was [cardiac] minutes. This time is in addition to time spent performing reported procedures but includes the following: [x] Data Review and interpretation [x] Patient assessment and monitoring of vital signs [x] Documentation [x] Medication orders and management Discharge Plan Departure [facility] Disposition: [facility] Clinical Impression: ST elevation (STEMI) myocardial infarction Discharge Date/Time: 02/05/19 12:08 Interventions: ED Discharge Assessment Last Done: 02/05/19 12:20 Prescriptions: No Action No Known Home Medications RF: 0 Referrals: Paco Bills MD [Primary Care Provider] -
[2019-02-05 11:51] LABS: Add Manual Diff / Slide Review NO; Basophils Absolute Auto 0 /uL (0-100); Basophils Percent Auto 0.7 % (0-2); Eosinophils Absolute Auto 100 /uL (0-450); Eosinophils Percent Auto 1.1 % (2-4); Hematocrit 42.9 % (41-53); Hemoglobin 14.7 g/dL (13.5-17.5); Lymphocytes Absolute Auto 1200 /uL (1100-4500); Mean Corpuscular HGB Conc 34.3 % (30-36); Mean Corpuscular Hemoglobin 33.6 PG (26-34); Mean Corpuscular Volume 98.1 fL (80-100); Monocytes Absolute Auto 500 /uL (0-900); Monocytes Percent Auto 8.6 % (3-14); Neutrophils Absolute Auto 4400 /uL (1500-7000); Neutrophils Percent Auto 70.6 % (50-75); Platelet Count 203 X10^3/uL (150-400); Red Blood Cell Count 4.37 X10^6/uL (4.5-5.9); Red Cell Distribution Width 12.8 % (11.6-14.8); White Blood Cell Count 6.3 X10^3/uL (4.5-11.0)
[2019-02-05] MEDS: HEPARIN 5,000 UNIT/ML VIAL 4000 UNIT IV (11:54)
[2019-02-05] MEDS: HEPARIN DRIP 25,000 UNIT/500 ML IV.SOLN 17.04 UNIT IV (11:57)
[2019-02-05 12:00] VITALS: BP 112/65; PULSE 70; RESP 20; O2SAT 99
[2019-02-05 12:00] LABS: Alanine Aminotransferase 25 IU/L (21-72); Albumin 4.2 g/dL (3.5-5.0); Albumin Globulin Ratio 1.3 (1.0-2.8); Alkaline Phosphatase 84 U/L (38-126); Aspartate Aminotransferase 28 IU/L (17-59); BUN Creatinine Ratio 26.3 (6-22); Bilirubin Total 0.6 mg/dL (0.2-1.3); Blood Urea Nitrogen 21 mg/dL (9-20); Calcium 9.1 mg/dL (8.4-10.2); Carbon Dioxide 25 mmol/L (22-32); Chloride 101 mmol/L (98-107); Creatine Kinase 68 U/L (55-170); Estimated Glomerular Filt Rate > 60.0 mL/min (>60); Globulin 3.3 g/dL (1.7-4.1); Glucose 134 mg/dL (80-110); HEMOLYSIS < 15 (0-50); Lipase 63 U/L (23-300); Prothrombin Time 11.7 SECONDS (10.1-12.7); Sodium 137 mmol/L (137-145); Total Protein 7.5 g/dL (6.3-8.2)
[2019-02-05 12:02] LABS: PTT Partial Thromboplastin Tim 27 SECONDS (26.4-36.2)
[2019-02-05 12:12] LABS: Troponin I < 0.012 ng/mL (0.01-0.034)
== END 2019-02-05 12:08 | disposition short-term general hospital (02) ==
PROVIDERS: Emergency Provider Emergency Medicine; PCP Family Medicine
DX: I21.3 ST elevation (STEMI) myocardial infarction of unspecified site (principal)
CPT/HCPCS: 36591; 71045; 80053; 82550; 83690; 84484; 85025; 85610; 85730; 93005; 93010; 96374; 96375; 96376; 99283; 99291; J1644; J3010

== ENCOUNTER → 2020-06-03 14:32 | Outpatient (CLI) | payer OTHER, SELFPAY ==
--- NOTE | 2020-06-03 | DI.RAD.S_ITS ---
PROCEDURE: XR HAND RT MIN 3V INDICATIONS: right hand swelling TECHNIQUE: 3 views of the hand(s) acquired. COMPARISON: None. FINDINGS: Bones: No fractures or dislocations. Carpal bones are normally aligned. No suspicious bony lesions. Polyarticular joint narrowing with periarticular osteophyte formation, severe involving the 1st CMC and 5th DIP joints as well as the 2nd and 5th MCP joints. There are multiple juxta-articular and central lucency suspicious for bony erosions throughout the carpus and hand. Bones are osteopenic. Soft tissues: No suspicious soft tissue calcifications. 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 Dictated by: Flo Quintanilla [facility] Interpreted: Angie Mix MD on 06/03/2020 at 16:50 Approved by: Angie Mix M.D. on 06/03/2020 at 18:04
== END ==
PROVIDERS: PCP Family Medicine; Referring Provider Family Medicine; Visit Provider Family Medicine
DX: M25.441 Effusion, right hand (principal)
CPT/HCPCS: 73130

== ENCOUNTER → 2021-01-07 09:42 | Outpatient (CLI) | payer MEDICARE, SELFPAY ==
[2021-01-07] MEDS: COVID-19 VACC #1, MRNA(MOD) 100 MCG/0.5 ML VIAL IM (09:56)
== END ==
PROVIDERS: Visit Provider Internal Medicine
DX: Z23 Encounter for immunization (principal)
CPT/HCPCS: 0011A; 91301

== ENCOUNTER → 2021-01-27 10:36 | Outpatient (CLI) | payer OTHER, SELFPAY ==
--- NOTE | 2021-01-27 10:39 | DI.US.S_ITS ---
PROCEDURE: US RENAL COMPLETE INDICATIONS: Retention of urine, unspecified TECHNIQUE: Real-time scanning was performed of the kidneys and bladder, with image documentation. COMPARISON: None. FINDINGS: Kidneys: Kidneys are asymmetric in size. Right kidney measures 8.0 cm long; left kidney measures 10.2 cm long. Right renal cortical thickness is 1.0 cm; left renal cortical thickness is 1.8 cm. Renal cortical echotexture is normal. No hydronephrosis or nephrolithiasis. No suspicious solid mass lesions. Bladder: Pre-void bladder volume is 504 mL. Post-void residual is 103 mL. Pre-void images demonstrate no intraluminal masses or stones. On pre-void images, bilateral ureteral jets are noted with color Doppler interrogation. (Of note, ureteral jets may not be detectable in up to 25% of cases due to insufficient differences in specific gravity between ureteral and bladder urine). Mild internal debris within the bladder lumen. Miscellaneous: No free pelvic fluid. IMPRESSION: Asymmetric size of the kidneys, smaller on the right than the left. No current hydronephrosis or nephrolithiasis is found. Note is made of a relatively large bladder volume and a moderate postvoid residual as noted above. There is mild irregularity of the bladder contour, and a small amount of internal debris can be seen within. A definite polypoid mass is not found. Dictated by: Santi Black M.D. on 01/27/2021 at 12:45 Approved by: Santi Black M.D. on 01/27/2021 at 12:46
== END ==
PROVIDERS: PCP Student in an Organized Health Care Education/Training Program; Referring Provider Family Medicine; Visit Provider Family Medicine
DX: R33.9 Retention of urine, unspecified (principal)
CPT/HCPCS: 76770

== ENCOUNTER → 2021-02-04 09:53 | Outpatient (CLI) | payer MEDICARE, SELFPAY ==
[2021-02-04] MEDS: COVID-19 VACC #2, MRNA(MOD) 100 MCG/0.5 ML VIAL IM (10:03)
== END ==
PROVIDERS: PCP Student in an Organized Health Care Education/Training Program; Visit Provider Internal Medicine
DX: Z23 Encounter for immunization (principal)
CPT/HCPCS: 0012A; 91301

== ENCOUNTER → 2023-01-17 14:22 | Outpatient (CLI) | payer OTHER, SELFPAY | PROVIDERS: PCP Student in an Organized Health Care Education/Training Program; Referring Provider Family Medicine; Visit Provider Surgery | DX: L98.499 Non-pressure chronic ulcer of skin of other sites with unspecified severity (principal) | CPT/HCPCS: 97597; 99203; 99212 ==

== ENCOUNTER → 2023-01-31 14:15 | Outpatient (CLI) | payer OTHER, SELFPAY | PROVIDERS: PCP Student in an Organized Health Care Education/Training Program; Referring Provider Student in an Organized Health Care Education/Training Program; Visit Provider Surgery | DX: L98.492 Non-pressure chronic ulcer of skin of other sites with fat layer exposed (principal) | CPT/HCPCS: 99212; 99213 ==

== ENCOUNTER → 2023-02-07 13:30 | Outpatient (CLI) | payer OTHER, SELFPAY | PROVIDERS: PCP Student in an Organized Health Care Education/Training Program; Referring Provider Student in an Organized Health Care Education/Training Program; Visit Provider Surgery | DX: L98.499 Non-pressure chronic ulcer of skin of other sites with unspecified severity (principal) | CPT/HCPCS: 99212; 99213 ==

== ENCOUNTER → 2023-02-15 09:16 | Outpatient (CLI) | payer OTHER, SELFPAY | PROVIDERS: PCP Student in an Organized Health Care Education/Training Program; Referring Provider Family Medicine; Visit Provider Surgery | DX: L98.492 Non-pressure chronic ulcer of skin of other sites with fat layer exposed (principal) | CPT/HCPCS: 99213 ==

== ENCOUNTER → 2023-02-22 09:35 | Outpatient (CLI) | payer OTHER, SELFPAY | PROVIDERS: PCP Student in an Organized Health Care Education/Training Program; Referring Provider Family Medicine; Visit Provider Surgery | DX: L98.492 Non-pressure chronic ulcer of skin of other sites with fat layer exposed (principal) | CPT/HCPCS: 97597 ==

== ENCOUNTER 2023-03-01 08:30 | Inpatient (IN) | payer OTHER, SELFPAY ==
[2023-03-01] VITALS (14 sets, daily range): BP systolic 114–174; BP diastolic 66–100; PULSE 68–95; RESP 13–20; TEMP 36.9–37.6; O2SAT 94–100; BMI 22.6; BMI 21.4
--- NOTE | 2023-03-01 08:47 | ED_ITS ---
HPI - Abdominal Pain General Chief Complaint: Abdominal Pain Stated Complaint: sharp pain in upper RT Quad T-1 Time Seen by Provider: 03/01/23 08:39 Source: patient Mode of arrival: Ambulatory History of Present Illness HPI narrative: Patient is a [place] 82-year-old male history of hypertension presenting today with right-sided abdominal pain. He says it started last night kept him awake all night. He denies any radiation. He says it really has not moved his pretty pinpoint. No nausea vomiting diarrhea or constipation. Denies any painful or frequent urination. No chest pain. He did not take anything for pain last night. He denies any abdominal surgeries Related Data Home Medications Medication Instructions Recorded Confirmed lisinopril 10 mg tablet 10 mg PO DAILY 03/01/23 03/01/23 Allergies Allergy/AdvReac Type Severity Reaction Status Date / Time Penicillins [PENICILLINS] Allergy Severe LIKE Verified 03/01/23 10:55 GOING INTO SHOCK Review of Systems Review of Systems ROS Unobtainable: All systems reviewed & are unremarkable except as noted in HPI and below Patient History Surgical History S/P hip replacement Social History household members: none Smoking Status: Former smoker alcohol intake: current Smoking Status: Former smoker alcohol intake frequency: 3 or more drinks per day Alcohol type: wine Substance Use Type: does not use Exam Initial Vital Signs Initial Vital Signs: Vital Signs Blood Pressure 172/100 H 03/01/23 08:35 GENERAL: Alert well-appearing 82-year-old male HEENT: Head atraumatic,EOMI, pupils reactive, face symmetric, moist mucous membranes CARDIOVASCULAR: Regular rate and rhythm without murmurs, rubs or gallops. RESPIRATORY: Breath sounds equal bilaterally, no wheezes rales or rhonchi. ABDOMEN: Soft, tender right lower quadrant 8 right upper as well but more right lower. : No CVA tenderness EXTREMITIES: Normal range of motion, no clubbing or edema. Neurovascularly intact NEUROLOGICAL: Alert and oriented x4. SKIN: Warm, dry, no laceration, no petechiae, no rashes or lesions. Course Orders Ordered: ED Orders 03/01/23 08:43 EKG-12 Lead Stat 03/01/23 08:45 Complete Blood Count AUTO DIFF Stat Comprehensive Metabolic Panel Stat Lactate (Lactic Acid) Stat Lipase Stat 03/01/23 08:51 CT abdomen pelvis w con Stat 03/01/23 09:30 Chest [XR chest 1V] Stat 03/01/23 10:20 Education, smoking cessation ONGOING 03/01/23 10:22 COVID19 -Nasal RAPID Stat 03/01/23 10:28 Consult to Discharge Planning Routine 03/02/23 05:00 Complete Blood Count AUTO DIFF DAILY Acetaminophen (Acetaminophen 325 Mg Tablet) 650 mg PO Q6H [facility] Last Admin: 03/01/23 11:03 Dose: Not Given Documented By: JANI Heparin Sodium (Porcine) (Heparin 5,000 Unit/Ml Vial) 5,000 unit SUBCUT BID [facility] Last Admin: 03/01/23 13:48 Dose: Not Given Documented By: YULI Dextrose/Sodium Chloride (Dextrose 5%-0.45% Ns) 1,000 mls @ 80 mls/hr IV CONT [facility] Last Admin: 03/01/23 12:15 Dose: 80 mls/hr Documented By: CLUADIA Ciprofloxacin (Cipro) 400 mg in 200 mls @ 200 mls/hr IV Q12H [facility] Last Infusion: 03/01/23 11:57 Dose: 0 mls/hr Documented By: Infusion: 03/01/23 11:49 Dose: 200 mls/hr Documented By: Admin: 03/01/23 10:56 Dose: 200 mls/hr Documented By: JANI Ibuprofen (Ibuprofen 400 Mg Tablet) 400 mg PO Q4H [facility] Last Admin: 03/01/23 11:03 Dose: Not Given Documented By: JANI Naloxone HCl (Naloxone 0.4 Mg/Ml Vial) 0.2 mg IV Q2MIN PRN PRN Reason: Opiate Reversal Ondansetron HCl (Ondansetron 4 Mg Odt) 4 mg PO NOW PRN PRN Reason: Nausea And Vomiting Ondansetron HCl (Ondansetron 4 Mg/2 Ml Inj) 4 mg IV NOW PRN PRN Reason: Nausea And Vomiting Oxycodone HCl (Oxycodone Ir 5 Mg Tablet) 5 mg PO Q3H PRN PRN Reason: Pain, Moderate (4-6) Discontinued Medications Metronidazole (Flagyl) 500 mg in 100 mls @ 100 mls/hr IV NOW ONE Stop: 03/01/23 11:27 Last Admin: 03/01/23 12:21 Dose: 100 mls/hr Documented By: TLS Vital Signs Vital signs: Vital Signs - 8 hr 03/01/23 08:38 03/01/23 08:35 03/01/23 08:36 Temperature 98.7 F Pulse Rate 95 H 92 H Respiratory Rate 18 Blood Pressure 172/100 H 172/100 H Pulse Oximetry 97 98 Oxygen Delivery Method Room Air 03/01/23 09:00 03/01/23 09:00 03/01/23 09:30 Temperature Pulse Rate 80 Respiratory Rate 17 Blood Pressure 146/79 H 170/84 H Pulse Oximetry 96 Oxygen Delivery Method Room Air 03/01/23 09:30 03/01/23 10:00 03/01/23 10:22 Temperature Pulse Rate 83 77 Respiratory Rate 13 Blood Pressure 167/81 H Pulse Oximetry 97 98 Oxygen Delivery Method 03/01/23 10:22 03/01/23 10:30 03/01/23 10:30 Temperature Pulse Rate 79 75 Respiratory Rate 16 14 Blood Pressure 151/78 H Pulse Oximetry 98 98 Oxygen Delivery Method MDM - Abdominal Pain Lab Data 03/01/23 08:45 03/01/23 08:45 Labs: Lab Results 03/01/23 03/01/23 03/01/23 Range/Units 08:45 08:45 08:45 WBC 7.7 (4.5-11.0) X10^3/uL RBC 4.06 L (4.5-5.9) X10^6/uL Hgb 14.0 (13.5-17.5) g/dL Hct 40.4 L (41-53) % MCV 99.4 (80-100) fL MCH 34.4 H (26-34) PG MCHC 34.6 (30-36) % RDW 12.8 (11.6-14.8) % Plt Count 211 (150-400) X10^3/uL Neut % (Auto) 76.6 H (50-75) % Lymph % (Auto) 10.9 L (25-40) % [place] % (Auto) 11.9 (3-14) % Eos % (Auto) 0.1 L (2-4) % Baso % (Auto) 0.5 (0-2) % Neut # (Auto) 5900 (6622-6067) /uL Lymph # (Auto) 800 L (5735-1136) /uL [place] # (Auto) 900 (0-900) /uL Eos # (Auto) 0 (0-450) /uL Baso # (Auto) 0 (0-100) /uL Sodium 136 L (137-145) mmol/L Potassium 4.6 (3.4-5.1) mmol/L Chloride 104 (98-107) mmol/L Carbon Dioxide 23 (22-32) mmol/L BUN 24 H (9-20) mg/dL Creatinine 0.84 (0.66-1.25) mg/dL Estimated GFR > 60 (>60) mL/min BUN/Creatinine Ratio 28.6 H (6-22) Glucose 127 H (80-110) mg/dL Lactate 1.3 (0.7-2.1) mmol/L Calcium 9.6 (8.4-10.2) mg/dL Total Bilirubin 0.9 (0.2-1.3) mg/dL AST 29 (17-59) IU/L ALT 21 (<50) IU/L Alkaline Phosphatase 96 (38-126) U/L Total Protein 8.4 H (6.3-8.2) g/dL Albumin 4.5 (3.5-5.0) g/dL Globulin 3.9 (1.7-4.1) g/dL Albumin/Globulin Ratio 1.2 (1.0-2.8) Lipase 96 (23-300) U/L SARS-CoV-2 (PCR) (Negative) 03/01/23 Range/Units 10:22 WBC (4.5-11.0) X10^3/uL RBC (4.5-5.9) X10^6/uL Hgb (13.5-17.5) g/dL Hct (41-53) % MCV (80-100) fL MCH (26-34) PG MCHC (30-36) % RDW (11.6-14.8) % Plt Count (150-400) X10^3/uL Neut % (Auto) (50-75) % Lymph % (Auto) (25-40) % [place] % (Auto) (3-14) % Eos % (Auto) (2-4) % Baso % (Auto) (0-2) % Neut # (Auto) (0587-2170) /uL Lymph # (Auto) (7860-0619) /uL [place] # (Auto) (0-900) /uL Eos # (Auto) (0-450) /uL Baso # (Auto) (0-100) /uL Sodium (137-145) mmol/L Potassium (3.4-5.1) mmol/L Chloride (98-107) mmol/L Carbon Dioxide (22-32) mmol/L BUN (9-20) mg/dL Creatinine (0.66-1.25) mg/dL Estimated GFR (>60) mL/min BUN/Creatinine Ratio (6-22) Glucose (80-110) mg/dL Lactate (0.7-2.1) mmol/L Calcium (8.4-10.2) mg/dL Total Bilirubin (0.2-1.3) mg/dL AST (17-59) IU/L ALT (<50) IU/L Alkaline Phosphatase (38-126) U/L Total Protein (6.3-8.2) g/dL Albumin (3.5-5.0) g/dL Globulin (1.7-4.1) g/dL Albumin/Globulin Ratio (1.0-2.8) Lipase (23-300) U/L SARS-CoV-2 (PCR) Negative (Negative) Imaging Data CT scan - abdomen/pelvis: Radiologist's Impression: PROCEDURE:? CT ABDOMEN PELVIS W CON ? INDICATIONS:? pain right side ? TECHNIQUE:? After the administration of intravenous contrast, axial sections acquired from the lung bases to the pubic symphysis.? Coronal and sagittal reformats were performed.? For radiation dose reduction, the following was used:? automated exposure control, adjustment of mA and/or kV according to patient size.? ? COMPARISON:? [facility], CT, ABDOMEN/PELVIS WITH CONTRAST, 02/20/2015, 13:29. ? FINDINGS:? Image quality:? Excellent.? ? Lung bases:? Unremarkable. Heart:? Severe calcification of the coronary vasculature. ? ABDOMEN: Liver:? Unremarkable.? ? Gallbladder:? Unremarkable.? ? Biliary ducts:? Unremarkable.? ? Pancreas:? Unremarkable.? ? Spleen:? Unremarkable.? ? Adrenal Glands:? Unremarkable.? ? Kidneys and Ureters:? Unremarkable.? ? ? Stomach and Bowel:? Moderate hiatal hernia.? Stomach, small bowel loops, and colon are unremarkable.? The appendix is thickened and distended and demonstrates moderate surrounding fat stranding, measuring roughly 10 mm in diameter. Peritoneum:? No abnormal intraperitoneal fluid.? No free air.? ? Ventral Wall: ? No hernias.? Abdominal Nodes:? No retroperitoneal or mesenteric adenopathy by size criteria.? Vessels:? Aorta and inferior vena cava are normal in size.? ? PELVIS: Pelvic Organs:? Unremarkable.? ? Bladder:? Unremarkable.? ? Pelvic Nodes: No enlarged lymph nodes.? Miscellaneous: No hernias are seen. ? ? ? Bones:? Left hip arthroplasty.? Chronic appearing compression fractures throughout the lumbar and lower thoracic spine.? No definite acute appearing fracture. ? ? IMPRESSION:? 1. Acute appendicitis. 2. Hiatal hernia. 3. Coronary artery disease.? ? Dictated by: Matthew Michele M.D. on 03/01/2023 at 10:01 ? ? Chest x-ray: Radiologist's Impression: PROCEDURE:? XR CHEST 1V ? INDICATIONS:? fall ? TECHNIQUE:? One view of the chest was acquired.? ? COMPARISON:? [facility], , XR CHEST 1V, 02/05/2019, 11:27. ? FINDINGS:? ? Surgical changes and devices:? None.? ? Lungs and pleura:? Lungs are clear.? No pleural effusions or pneumothorax.? ? Mediastinum:? Mediastinal contours appear normal.? Heart size is normal.? ? Bones and chest wall:? No suspicious bony lesions.? Overlying soft tissues appear unremarkable.? ? IMPRESSION:? No acute process. ? ? Dictated by: Matthew Michele M.D. on 03/01/2023 at 9:57 ? ? ECG Data Interpretation: Normal sinus rhythm rate 80 MI interval 160 QRS [address] changes Q-wave noted in lead 3 only MDM Narrative Medical decision making narrative: Patient 82-year-old male with history of hypertension presents today with right- sided abdominal pain started night. He is actually quite tender. No significant leukocytosis vitals are stable. Electrolyte abnormality or BRIA. CT confirms acute appendicitis. Dr. Youngblood on-call surgery updated patient's symptoms test results recommends antibiotics and admission she accepts patient Discharge Plan Departure Patient Disposition: Admitted As Inpatient Clinical Impression: Appendicitis Admit Date/Time: 03/01/23 10:41 Admit Provider: Chastity Youngblood
--- NOTE | 2023-03-01 08:51 | DI.CT.S_ITS ---
PROCEDURE: CT ABDOMEN PELVIS W CON INDICATIONS: pain right side TECHNIQUE: After the administration of intravenous contrast, axial sections acquired from the lung bases to the pubic symphysis. Coronal and sagittal reformats were performed. For radiation dose reduction, the following was used: automated exposure control, adjustment of mA and/or kV according to patient size. COMPARISON: [facility], CT, ABDOMEN/PELVIS WITH CONTRAST, 02/20/2015, 13:29. FINDINGS: Image quality: Excellent. Lung bases: Unremarkable. Heart: Severe calcification of the coronary vasculature. ABDOMEN: Liver: Unremarkable. Gallbladder: Unremarkable. Biliary ducts: Unremarkable. Pancreas: Unremarkable. Spleen: Unremarkable. Adrenal Glands: Unremarkable. Kidneys and Ureters: Unremarkable. Stomach and Bowel: Moderate hiatal hernia. Stomach, small bowel loops, and colon are unremarkable. The appendix is thickened and distended and demonstrates moderate surrounding fat stranding, measuring roughly 10 mm in diameter. Peritoneum: No abnormal intraperitoneal fluid. No free air. Ventral Wall: No hernias. Abdominal Nodes: No retroperitoneal or mesenteric adenopathy by size criteria. Vessels: Aorta and inferior vena cava are normal in size. PELVIS: Pelvic Organs: Unremarkable. Bladder: Unremarkable. Pelvic Nodes: No enlarged lymph nodes. Miscellaneous: No hernias are seen. Bones: Left hip arthroplasty. Chronic appearing compression fractures throughout the lumbar and lower thoracic spine. No definite acute appearing fracture. IMPRESSION: 1. Acute appendicitis. 2. Hiatal hernia. 3. Coronary artery disease. Dictated by: Matthew Michele M.D. on 03/01/2023 at 10:01 Approved by: Matthew Michele M.D. on 03/01/2023 at 10:03
[2023-03-01 09:00] LABS: Add Manual Diff / Slide Review NO; Basophils Absolute Auto 0 /uL (0-100); Basophils Percent Auto 0.5 % (0-2); Eosinophils Absolute Auto 0 /uL (0-450); Eosinophils Percent Auto 0.1 % (2-4); Hematocrit 40.4 % (41-53); Lymphocytes Absolute Auto 800 /uL (1100-4500); Lymphocytes Percent Auto 10.9 % (25-40); Mean Corpuscular HGB Conc 34.6 % (30-36); Mean Corpuscular Hemoglobin 34.4 PG (26-34); Mean Corpuscular Volume 99.4 fL (80-100); Monocytes Absolute Auto 900 /uL (0-900); Monocytes Percent Auto 11.9 % (3-14); Neutrophils Absolute Auto 5900 /uL (1500-7000); Neutrophils Percent Auto 76.6 % (50-75); Platelet Count 211 X10^3/uL (150-400); Red Blood Cell Count 4.06 X10^6/uL (4.5-5.9); Red Cell Distribution Width 12.8 % (11.6-14.8); White Blood Cell Count 7.7 X10^3/uL (4.5-11.0)
[2023-03-01 09:11] LABS: Alanine Aminotransferase 21 IU/L (<50); Albumin 4.5 g/dL (3.5-5.0); Albumin Globulin Ratio 1.2 (1.0-2.8); Alkaline Phosphatase 96 U/L (38-126); Aspartate Aminotransferase 29 IU/L (17-59); BUN Creatinine Ratio 28.6 (6-22); Bilirubin Total 0.9 mg/dL (0.2-1.3); Blood Urea Nitrogen 24 mg/dL (9-20); Calcium 9.6 mg/dL (8.4-10.2); Carbon Dioxide 23 mmol/L (22-32); Chloride 104 mmol/L (98-107); Estimated Glomerular Filt Rate > 60 mL/min (>60); Globulin 3.9 g/dL (1.7-4.1); Glucose 127 mg/dL (80-110); HEMOLYSIS < 15 (0-50); Lactate (Lactic Acid) 1.3 mmol/L (0.7-2.1); Lipase 96 U/L (23-300); Potassium 4.6 mmol/L (3.4-5.1); Sodium 136 mmol/L (137-145); Total Protein 8.4 g/dL (6.3-8.2)
--- NOTE | 2023-03-01 09:30 | DI.RAD.S_ITS ---
PROCEDURE: XR CHEST 1V INDICATIONS: fall TECHNIQUE: One view of the chest was acquired. COMPARISON: [facility], CR, XR CHEST 1V, 02/05/2019, 11:27. FINDINGS: Surgical changes and devices: None. Lungs and pleura: Lungs are clear. No pleural effusions or pneumothorax. Mediastinum: Mediastinal contours appear normal. Heart size is normal. Bones and chest wall: No suspicious bony lesions. Overlying soft tissues appear unremarkable. IMPRESSION: No acute process. Dictated by: Matthew Michele M.D. on 03/01/2023 at 9:57 Approved by: Matthew Michele M.D. on 03/01/2023 at 9:57
[2023-03-01 10:46] LABS: COVID19 -Nasal RAPID Negative (Negative)
[2023-03-01] MEDS: CIPROFLOXACIN 400 MG/200 ML PIGGYBACK 200 MG IV ×2 (10:56→21:49)
[2023-03-01] MEDS: DEXTROSE 5%-0.45% NS 1,000 ML 80 ML IV (12:15)
[2023-03-01] MEDS: metroNIDAZOLE 500 MG/100 ML PIGGYBACK 100 MG IV (12:21)
--- NOTE | 2023-03-01 15:42 | PM.HP.1 ---
History of Present Illness History of Present Illness Date Patient Seen: 03/01/23 Time Patient Seen: 15:42 Chief complaint: sharp pain in upper RT Quad T-1 Narrative: One day of abdominal pain localizing in RLQ, sharp in nature. Worse when he eats or tries to urinate. No previous similar episodes no diarrhea PFSH Surgical History S/P hip replacement Social History household members: none Smoking Status: Former smoker alcohol intake: current Meds Home Medications and Allergies Home Medications Medication Instructions Recorded Confirmed Type lisinopril 10 mg tablet 10 mg PO DAILY 03/01/23 03/01/23 History Allergies Allergy/AdvReac Type Severity Reaction Status Date / Time Penicillins [PENICILLINS] Allergy Severe LIKE Verified 03/01/23 10:55 GOING INTO SHOCK Review of Systems Review of Systems ROS: Yes All systems reviewed with the patient and are negative except as otherwise documented Exam Vital Signs (past 8 hours): - 03/01/23 08:38 03/01/23 08:35 03/01/23 08:36 Temperature 98.7 F Pulse Rate 95 H 92 H Respiratory Rate 18 Blood Pressure 172/100 H 172/100 H Pulse Oximetry 97 98 Oxygen Delivery Method Room Air Oxygen Flow Rate 03/01/23 09:00 03/01/23 09:00 03/01/23 09:30 Temperature Pulse Rate 80 Respiratory Rate 17 Blood Pressure 146/79 H 170/84 H Pulse Oximetry 96 Oxygen Delivery Method Room Air Oxygen Flow Rate 03/01/23 09:30 03/01/23 10:00 03/01/23 10:22 Temperature Pulse Rate 83 77 Respiratory Rate 13 Blood Pressure 167/81 H Pulse Oximetry 97 98 Oxygen Delivery Method Oxygen Flow Rate 03/01/23 10:22 03/01/23 10:30 03/01/23 10:30 Temperature Pulse Rate 79 75 Respiratory Rate 16 14 Blood Pressure 151/78 H Pulse Oximetry 98 98 Oxygen Delivery Method Oxygen Flow Rate 03/01/23 11:00 03/01/23 11:00 03/01/23 11:30 Temperature Pulse Rate 80 Respiratory Rate 16 Blood Pressure 174/84 H 149/86 H Pulse Oximetry 99 Oxygen Delivery Method Oxygen Flow Rate 03/01/23 11:30 03/01/23 12:08 Temperature 98.9 F Pulse Rate 77 76 Respiratory Rate 15 20 Blood Pressure 165/86 H Pulse Oximetry 98 98 Oxygen Delivery Method Room Air Oxygen Flow Rate 0 Oxygen Delivery Method Room Air Oxygen Flow Rate 0 Const General: cooperative, well groomed and in distress Nutritional Appearance: thin HENMT Head: normocephalic and atraumatic Mouth: oral mucosae normal Eyes Alignment and Position: alignment normal Sclera: sclerae normal Neck Neck: trachea midline Chest Chest: normal inspection of the chest Other: slow healing wound right upper medial chest. Resp Effort & Inspection: normal respiratory effort and able to speak in complete sentences Cardio Rate: regular rate Rhythm: regular rhythm GI Palpation: soft and tender (RLQ) Skin General: atrophy and dry skin Hair: brittle and general thinning Neuro General: patient alert, patient awake and patient oriented x3 Cognition: normal cognition Psych Appearance: grossly normal Mental Status: mental status grossly normal Judgment: judgment good Objective Labs 03/01/23 08:45 03/01/23 08:45 Labs: Laboratory Results - last 24 hr 03/01/23 03/01/23 03/01/23 08:45 08:45 08:45 WBC 7.7 RBC 4.06 L Hgb 14.0 Hct 40.4 L MCV 99.4 MCH 34.4 H MCHC 34.6 RDW 12.8 Plt Count 211 Neut % (Auto) 76.6 H Lymph % (Auto) 10.9 L [place] % (Auto) 11.9 Eos % (Auto) 0.1 L Baso % (Auto) 0.5 Neut # (Auto) 5900 Lymph # (Auto) 800 L [place] # (Auto) 900 Eos # (Auto) 0 Baso # (Auto) 0 Sodium 136 L Potassium 4.6 Chloride 104 Carbon Dioxide 23 BUN 24 H Creatinine 0.84 Estimated GFR > 60 BUN/Creatinine Ratio 28.6 H Glucose 127 H Lactate 1.3 Calcium 9.6 Total Bilirubin 0.9 AST 29 ALT 21 Alkaline Phosphatase 96 Total Protein 8.4 H Albumin 4.5 Globulin 3.9 Albumin/Globulin Ratio 1.2 Lipase 96 SARS-CoV-2 (PCR) 03/01/23 10:22 WBC RBC Hgb Hct MCV MCH MCHC RDW Plt Count Neut % (Auto) Lymph % (Auto) [place] % (Auto) Eos % (Auto) Baso % (Auto) Neut # (Auto) Lymph # (Auto) [place] # (Auto) Eos # (Auto) Baso # (Auto) Sodium Potassium Chloride Carbon Dioxide BUN Creatinine Estimated GFR BUN/Creatinine Ratio Glucose Lactate Calcium Total Bilirubin AST ALT Alkaline Phosphatase Total Protein Albumin Globulin Albumin/Globulin Ratio Lipase SARS-CoV-2 (PCR) Negative Assessment & Plan Assessment & Plan narrative: Acute appendicitis w/o fecal lith hyper expended lungs c/w emphysema, no O2 requirements Plan: Medical management Time Spent With Patient Time with patient: 30 to 49 minutes with 50% spent counseling/coordinating care Quality VTE Deep Vein Thrombosis/Pulmonary Embolism Present on Admission: No
[2023-03-01] MEDS: ACETAMINOPHEN 325 MG TABLET 650 MG PO (21:49)
[2023-03-01] MEDS: IBUPROFEN 400 MG TABLET PO (21:49)
[2023-03-02 04:00] VITALS: BP 144/89; PULSE 61; RESP 17; TEMP 36.8; O2SAT 95
[2023-03-02 05:48] LABS: Add Manual Diff / Slide Review NO; Basophils Absolute Auto 0 /uL (0-100); Basophils Percent Auto 0.6 % (0-2); Eosinophils Absolute Auto 100 /uL (0-450); Eosinophils Percent Auto 0.9 % (2-4); Hematocrit 36.3 % (41-53); Hemoglobin 12.5 g/dL (13.5-17.5); Lymphocytes Absolute Auto 1100 /uL (1100-4500); Lymphocytes Percent Auto 18.4 % (25-40); Mean Corpuscular HGB Conc 34.5 % (30-36); Mean Corpuscular Hemoglobin 34.4 PG (26-34); Mean Corpuscular Volume 99.7 fL (80-100); Monocytes Absolute Auto 800 /uL (0-900); Monocytes Percent Auto 12.9 % (3-14); Neutrophils Absolute Auto 4100 /uL (1500-7000); Neutrophils Percent Auto 67.2 % (50-75); Platelet Count 182 X10^3/uL (150-400); Red Blood Cell Count 3.64 X10^6/uL (4.5-5.9); Red Cell Distribution Width 12.5 % (11.6-14.8); White Blood Cell Count 6.2 X10^3/uL (4.5-11.0)
[2023-03-02 08:00] VITALS: BP 161/91; PULSE 65; RESP 18; TEMP 36.4; O2SAT 98
[2023-03-02 10:08] VITALS: BP 161/91; PULSE 65
[2023-03-02] MEDS: lisinopriL 10 MG TABLET PO (10:08)
--- NOTE | 2023-03-02 11:44 | PC.NURSE ---
Pt discharged home by private vehicle at 1035, escorted by wheelchair off the floor, to pharmacy and then to car, accompanied by hospital staff. IV removed. Discharge teaching reviewed including follow up appointment, new medications and worsening symptoms. All belongings left floor with patient.
--- NOTE | 2023-03-02 11:53 | PM.DS.1 ---
History of Present Illness History of Present Illness Date Patient Seen: 03/02/23 Time Patient Seen: 07:10 Chief complaint: sharp pain in upper RT Quad T-1 Narrative: One day of abdominal pain localizing in RLQ, sharp in nature. Worse when he eats or tries to urinate. No previous similar episodes no diarrhea Discharge Providers Provider Date of admission: 03/01/23 10:41 Discharge Date: 03/02/23 Primary care physician: Kraig Ramey MD Consults: 03/01/23 10:28 Consult to Discharge Planning Routine Comment: Discharge provider: Chastity Youngblood MD Summary Hospital Course Discharge Diagnosis: acute appendicitis, no fecal lith Hospital Course: Treated successfully with antibiotics. Agrees to medical management of a 7 day course of antibiotics. Understands that if he fails to improve back to base line he should contact my office for lap appy. Status at Discharge Cognitive/behavioral status at discharge: at baseline, oriented Functional status at discharge: independent ambulation Overall status at discharge: patient is progressing back to baseline Time Spent with Patient Time spent: Less than 30 minutes Exam Vital Signs (past 8 hours): - 03/02/23 04:00 03/02/23 08:00 03/02/23 10:08 Temperature 98.2 F 97.5 F L Pulse Rate 61 65 65 Respiratory Rate 17 18 Blood Pressure 144/89 H 161/91 H 161/91 H Pulse Oximetry 95 98 Oxygen Delivery Method Oxygen Flow Rate 2 0 03/02/23 09:45 Temperature Pulse Rate Respiratory Rate Blood Pressure Pulse Oximetry Oxygen Delivery Method Room Air Oxygen Flow Rate Oxygen Delivery Method Room Air Oxygen Flow Rate 0 Narrative Exam Narrative: abdomen is soft with marked decrease in tenderness RLQ. Objective Labs 03/02/23 05:04 03/01/23 08:45 Labs: Laboratory Results - last 24 hr 03/02/23 05:04 WBC 6.2 RBC 3.64 L Hgb 12.5 L Hct 36.3 L MCV 99.7 MCH 34.4 H MCHC 34.5 RDW 12.5 Plt Count 182 Neut % (Auto) 67.2 Lymph % (Auto) 18.4 L [place] % (Auto) 12.9 Eos % (Auto) 0.9 L Baso % (Auto) 0.6 Neut # (Auto) 4100 Lymph # (Auto) 1100 [place] # (Auto) 800 Eos # (Auto) 100 Baso # (Auto) 0 PFSH Surgical History S/P hip replacement Social History household members: none Smoking Status: Former smoker alcohol intake: current Discharge Assessment & Plan Assessment and Plan Assessment: acute appendicitis Plan of Treatment: Medical management of Levaquin X7 days Follow up prn. Discharge Plan Discharge Plan Patient Disposition: Home Discharge orders & Medications Prescriptions: New levofloxacin 250 mg Tablet 750 mg PO 0700 Qty: 7 0RF Continued lisinopril 10 mg tablet 10 mg PO DAILY Medication counseling provided by Pharmacist: Yes Follow up/Referrals: Kraig Ramey MD [Primary Care Provider] - Diet/Activity/Treatments Diet: Diet as Tolerated Skin/Wound/Dressing Care Report to your healthcare provider any signs of infection, such as:: chills, fever and increased pain Visit Report/Discharge Packet Instructions: DI for Appendicitis -- Adult Stand Alone Forms: Patient Portal/API Discharge Data Primary Care Provider: Kraig Ramey Discharges patient from system. Discharge Date/Time: 03/02/23 10:39 Quality VTE Deep Vein Thrombosis/Pulmonary Embolism Present on Admission: No
--- NOTE | 2023-03-02 11:57 | PM.PN.1 ---
Subjective Subjective Date Patient Seen: 03/02/23 Time Patient Seen: 07:10 Interval history: acute appendicitis. Feels much better Exam Vital Signs (past 8 hours): - 03/02/23 04:00 03/02/23 08:00 03/02/23 10:08 Temperature 98.2 F 97.5 F L Pulse Rate 61 65 65 Respiratory Rate 17 18 Blood Pressure 144/89 H 161/91 H 161/91 H Pulse Oximetry 95 98 Oxygen Delivery Method Oxygen Flow Rate 2 0 03/02/23 09:45 Temperature Pulse Rate Respiratory Rate Blood Pressure Pulse Oximetry Oxygen Delivery Method Room Air Oxygen Flow Rate Oxygen Delivery Method Room Air Oxygen Flow Rate 0 Narrative Exam Narrative: marked decrease in RLQ pain and tenderness, no fevers, WBC remains normal. Objective Labs 03/02/23 05:04 03/01/23 08:45 Labs: Laboratory Results - last 24 hr 03/02/23 05:04 WBC 6.2 RBC 3.64 L Hgb 12.5 L Hct 36.3 L MCV 99.7 MCH 34.4 H MCHC 34.5 RDW 12.5 Plt Count 182 Neut % (Auto) 67.2 Lymph % (Auto) 18.4 L [place] % (Auto) 12.9 Eos % (Auto) 0.9 L Baso % (Auto) 0.6 Neut # (Auto) 4100 Lymph # (Auto) 1100 [place] # (Auto) 800 Eos # (Auto) 100 Baso # (Auto) 0 PFSH Surgical History S/P hip replacement Social History household members: none Smoking Status: Former smoker alcohol intake: current Assessment & Plan Assessment & Plan narrative: acute appendicitis responding to IV cipro and flagyl Plan: Home on 7 days of po Levaquin. Follow up PRN Time Spent With Patient Time with patient: less than 30 minutes Quality VTE Deep Vein Thrombosis/Pulmonary Embolism Present on Admission: No
--- NOTE | 2023-03-02 12:08 | CM.DANOTE ---
DCP/Assessment: Reviewed EMR. Patient is a 82yr old male admitted to [facility] with abdominal pain. Patient is inpatient status. PCP is Dr. Ramey. Primary payor is 1)[employer] ADV. Met with patient this AM explained CM/SW role. Patient alert and oriented very pleasant with some ALGAACIQ. Patient reports that he is completely I in all ADL's. Patient going home today after receiving care for probable appendicitis. At this time patient treating symptoms conservatively without surgery. Patient denies any d/c planning needs. P: Home today. KJS Discharge Planning/Care Management Advanced directive, confirm from FAMILY Start: 03/01/23 12:09 Freq: Q24H Status: Discharge Protocol: Document 03/01/23 19:00 CT (Rec: 03/01/23 21:45 CT [id number]) Advance Directive, confirm on record Time 21:45 Person contacted Patient Copy received No CM Discharge Assessment Start: 03/02/23 11:59 Freq: Status: Discharge Protocol: Document 03/02/23 11:59 KJS (Rec: 03/02/23 12:08 KJS Laptop) Discharge Planning Assessment Assigned Diesel Service Technician STANISLAV Huffman Contact Information Rhett Iniguez (brother) ph# [phone] Advance Directives? Yes: DPOA, Living Will, HC Directive Advance Directives on File states full code History Provided By Patient Has Patient been admitted in last 30 No days? Prior Living Arrangements House Household Members none Type of transporation used prior to Drives own vehicle admit Comment Patient has vehicle at [facility] will be driving himself home. Independent with ADL's Yes Is patient alert and oriented? Yes Caregiver for Another No Barriers to Discharge No Referrals Initiated None needed Whiteboard Updated in Patient Room with Yes name and ext. # of Diesel Service Technician Review Status In Process Next Review Type Continued Stay Review
== END 2023-03-02 10:39 | disposition home or self-care (01) | DRG 395 ==
LOC: ED 08:45 → AC 10:42
PROVIDERS: Admitting Provider Surgery; Emergency Provider Emergency Medicine; PCP Family Medicine; Referring Provider Emergency Medicine; Visit Provider Surgery
DX: K35.80 Unspecified acute appendicitis (principal); Z87.891 Personal history of nicotine dependence; Z20.822 Contact with and (suspected) exposure to COVID-19
CPT/HCPCS: 36415; 71045; 74177; 80053; 83605; 83690; 85025; 87635; 93005; 96365; 99221; 99238; 99284; C9803; J0744; Q9967

== ENCOUNTER → 2023-03-08 09:35 | Outpatient (CLI) | payer OTHER, SELFPAY ==
[2023-03-01 11:57] VITALS: BMI 21.4
== END ==
PROVIDERS: PCP Family Medicine; Referring Provider Family Medicine; Visit Provider Surgery
DX: L98.492 Non-pressure chronic ulcer of skin of other sites with fat layer exposed (principal)
CPT/HCPCS: 17250; 99213

== ENCOUNTER → 2023-03-22 10:34 | Outpatient (CLI) | payer OTHER, SELFPAY ==
[2023-03-01 11:57] VITALS: BMI 21.4
== END ==
PROVIDERS: PCP Family Medicine; Referring Provider Family Medicine; Visit Provider Surgery
DX: L98.492 Non-pressure chronic ulcer of skin of other sites with fat layer exposed (principal)
CPT/HCPCS: 99213

== ENCOUNTER → 2023-04-28 11:58 | Outpatient (CLI) | payer OTHER, SELFPAY ==
[2023-03-01 11:57] VITALS: BMI 21.4
--- NOTE | 2023-04-28 | DI.US.S_ITS ---
PROCEDURE: US PERIPH VENOUS LOW EXTREM LT INDICATIONS: Localized edema TECHNIQUE: Real-time imaging, as well as color and pulse Doppler interrogation, were performed of the lower extremity deep veins from the inguinal ligament to the popliteal fossa. COMPARISON: None. FINDINGS: The common femoral, femoral and popliteal veins are normally compressible, and free of intraluminal thrombus. Color and pulse Doppler demonstrate normal phasic intraluminal flow. There is normal augmentation response to distal compression maneuver. There is incidentally noted occlusion of the left common femoral artery and the proximal and mid left superficial femoral artery. Good flow is visualized within the distal left superficial femoral artery and the popliteal artery. IMPRESSION: 1. No deep vein thrombosis of the left lower extremity. 2. 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 These findings were discussed with Dr. Ramey's Office by the cardiac monitor at 12:38 p.m.. Dictated by: Teresita Szymanski M.D. on 04/28/2023 at 15:12 Approved by: Teresita Szymanski M.D. on 04/28/2023 at 15:16
== END ==
PROVIDERS: PCP Family Medicine; Referring Provider Family Medicine; Visit Provider Family Medicine
DX: R60.0 Localized edema (principal); I77.1 Stricture of artery
CPT/HCPCS: 93971

== ENCOUNTER 2023-04-30 17:31 | Emergency (ER) | payer OTHER, SELFPAY ==
[2023-03-01 11:57] VITALS: BMI 21.4
[2023-04-30] VITALS (11 sets, daily range): BP systolic 173–197; BP diastolic 84–98; PULSE 67–86; RESP 10–22; TEMP 36.4; O2SAT 96–98; BMI 23.3
--- NOTE | 2023-04-30 17:40 | DI.RAD.S_ITS ---
PROCEDURE: XR HIP W PEL IF DONE RT 2V INDICATIONS: fall pain TECHNIQUE: AP pelvis with lateral view(s) of the left hip(s). COMPARISON: [facility], CT, CT ABDOMEN PELVIS W CON, 03/01/2023, 9:33. [facility], CR, HIP 2V LEFT, 12/11/2014, 16:15. 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 Fracture of the right superior and inferior ramus. No fractures or dislocations. Pelvic ring appears intact. No suspicious bony lesions. Soft tissues: The visualized bowel gas pattern is normal. No suspicious soft tissue calcifications. IMPRESSION: Right superior and inferior ramus fracture. Dictated by: Abel Rodriguez M.D. on 04/30/2023 at 17:55 Approved by: Abel Rodriguez M.D. on 04/30/2023 at 17:58
--- NOTE | 2023-04-30 18:36 | DI.CT.S_ITS ---
PROCEDURE: CT ANGIO LE LT INDICATIONS: known fem clot on US TECHNIQUE: After the administration of intravenous contrast, 2.5 mm sections acquired from T12 to the feet, with optional delayed image acquisition from the knees to the feet. 3-dimensional maximum intensity projection (MIP) coronal and sagittal reformats, and/or 3-dimensional volume rendering reformatting was then performed. For radiation dose reduction, the following was used: automated exposure control. COMPARISON: [facility], US, US PERIP VENOUS LOW EXTREM LT, 04/28/2023, 12:12. FINDINGS: Image quality: Portions of the lower pelvis are suboptimally evaluated secondary to metallic streak artifact from hip arthroplasty. Extravascular tissues: Lung bases are clear. Heart size is normal. Liver is normal in size and enhancement. Gallbladder is not visualized . Biliary system is non dilated. Pancreas enhances normally. Spleen is normal in size and enhancement. No adrenal nodules. Kidneys are normal in size and enhancement, without hydronephrosis. Non opacified bowel loops demonstrate normal wall thickness and enhancement. No free fluid or air. No retroperitoneal or mesenteric adenopathy. No ventral hernias. Bladder wall thickness is normal. No inguinal hernias or adenopathy. No suspicious bony lesions. No vertebral body compression fractures. Is Abdominal aorta: Mild atherosclerotic wall calcifications are present without hemodynamically significant stenosis, vascular occlusion or aneurysmal dilation. Right lower extremity: Visualized common iliac artery is patent. Remaining vessels are not included within the field of view. Left lower extremity: Common, internal and external iliac arteries are widely patent. The common and superficial femoral artery demonstrate occlusion with wall calcification, extending to the distal superficial femoral artery. There is very minimal appearance of central luminal contrast opacification within the distal common femoral artery, with increased reconstitution of flow extending to the popliteal artery. The mid and distal aspect the popliteal appear to notable reconstitution although appearing diminutive in size. There is a three-vessel bifurcation. The anterior tibial artery is markedly diminutive and there appears to partial occlusion at the origin. It appears to terminate within the mid calf. Posterior tibial and peroneal arteries are diminutive in caliber but appear to remain patent to the foot. 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 Dictated by: Angie Mix M.D. on 04/30/2023 at 20:25 Approved by: Angie Mix M.D. on 04/30/2023 at 20:32
--- NOTE | 2023-04-30 18:36 | ED_ITS ---
HPI - Extremity Injury (Lower) General Chief Complaint: Extremity Injury, Lower Stated Complaint: Fall Time Seen by Provider: 04/30/23 17:40 Source: patient and EMS Mode of arrival: EMS Limitations: no limitations History of Present Illness HPI Narrative: Patient is an 82-year-old male who is here for evaluation of injuries that he sustained when he tripped while pulling a garbage can out from her friend of his garage door. He landed on his right hip. He did not hit his head. No loss of consciousness. No other injuries from the event. He was having quite a bit of difficulty with standing. Brought in by EMS. He states he was on his way here to the hospital to discuss an ultrasound that he had of his left lower extremity 2 days ago. He states he contacted his primary doctor several days ago. He was diagnosed with gout in his left foot. Has been on medications for this. Has also been on steroids. He states that the pain in his ankle is gone. He feels that the swelling has improved but not completely gone. Because of this an ultrasound was ordered to evaluate for a DVT. The ultrasound did show an arterial clot. He was concerned that maybe the fact that he had an artificial hip would cause problems with interpreting the ultrasound. Currently he does report pain in his right hip. No chest pain. No shortness of breath. No headache. No neck. . No upper extremity discomfort. Related Data Home Medications Medication Instructions Recorded Confirmed lisinopril 10 mg tablet 10 mg PO DAILY 03/01/23 03/01/23 Previous Rx's Medication Instructions Recorded levofloxacin 250 mg tablet 750 mg PO 0700 #7 tabs 03/02/23 atorvastatin 40 mg tablet 40 mg PO DAILY #30 tabs 04/30/23 clopidogrel 75 mg tablet (Plavix) 75 mg PO DAILY #30 tabs 04/30/23 hydrocodone 5 mg-acetaminophen 325 1 tab PO Q4-6H PRN pain #12 tabs 04/30/23 mg tablet Allergies Allergy/AdvReac Type Severity Reaction Status Date / Time Penicillins [PENICILLINS] Allergy Severe LIKE Verified 03/01/23 16:40 GOING INTO SHOCK Review of Systems Review of Systems ROS Unobtainable: All systems reviewed & are unremarkable except as noted in HPI and below Patient History Surgical History S/P hip replacement Social History household members: none Smoking Status: Former smoker alcohol intake: current Smoking Status: Former smoker alcohol intake frequency: 3 or more drinks per day Alcohol type: wine Substance Use Type: does not use Exam Initial Vital Signs Initial Vital Signs: Vital Signs Pulse Rate 82 04/30/23 17:36 Blood Pressure 197/88 H 04/30/23 17:36 Pulse Oximetry 96 04/30/23 17:36 Const General: cooperative, comfortable and No ill appearing HENMT Head: normal to inspection and normocephalic Resp Effort & Inspection: normal respiratory effort Auscultation: clear to auscultation bilaterally Cardio Rate: regular rate Rhythm: regular rhythm Other: No palpable DP pulses on the left or PT pulses on the left however there is a dopplerable DP and PT pulse on the left GI Inspection: normal to inspection and non-distended Skin Other: Patient does mild discoloration to his left ankle specifically in the medial aspect. He states that this is actually improved. Neuro General: patient alert, patient awake and moves all extremities Gait: normal gait Motor: muscle tone normal throughout Extrem Other: Mild swelling left lower extremity. Pelvis is stable but does have discomfort of the right hemipelvis Course Orders Ordered: ED Orders 04/30/23 17:40 XR hip w pel if done RT 2V Stat 04/30/23 18:36 CT angio LE LT Stat 04/30/23 18:45 Basic Metabolic Panel Stat Complete Blood Count AUTO DIFF Stat PTT Partial Thromboplastin Brandon Stat Prothrombin Time INR Stat Discontinued Medications Hydrocodone Bitart/Acetaminophen (Hydrocodone/Acet 5/325 Tablet) 1 tab PO NOW ONE Stop: 04/30/23 20:51 Last Admin: 04/30/23 21:09 Dose: 1 tab Documented By: REKHA Vital Signs Vital signs: Vital Signs - 8 hr 04/30/23 17:43 04/30/23 17:36 04/30/23 17:36 Temperature 97.5 F L Pulse Rate 85 82 Respiratory Rate 20 Blood Pressure 197/88 H 197/88 H Pulse Oximetry 97 96 Oxygen Delivery Method Room Air 04/30/23 18:09 04/30/23 18:30 04/30/23 19:00 Temperature Pulse Rate 82 80 69 Respiratory Rate 12 Blood Pressure Pulse Oximetry 96 96 97 Oxygen Delivery Method 04/30/23 20:04 04/30/23 20:05 04/30/23 20:05 Temperature Pulse Rate 79 67 Respiratory Rate 13 14 Blood Pressure 173/84 H Pulse Oximetry 96 98 Oxygen Delivery Method 04/30/23 20:30 04/30/23 21:00 04/30/23 21:21 Temperature Pulse Rate 72 75 Respiratory Rate 10 L 10 L Blood Pressure 190/98 H Pulse Oximetry 97 98 Oxygen Delivery Method 04/30/23 21:21 04/30/23 21:30 04/30/23 21:30 Temperature Pulse Rate 86 77 Respiratory Rate 22 16 Blood Pressure 180/92 H Pulse Oximetry 98 98 Oxygen Delivery Method MDM - Extremity Injury (Lower) Lab Data Attestation: I reviewed the patient's lab results. 04/30/23 18:45 04/30/23 18:45 Labs: Lab Results 04/30/23 04/30/23 04/30/23 Range/Units 18:45 18:45 18:45 WBC 6.6 (4.5-11.0) X10^3/uL RBC 4.03 L (4.5-5.9) X10^6/uL Hgb 14.0 (13.5-17.5) g/dL Hct 41.1 (41-53) % MCV 101.8 H (80-100) fL MCH 34.7 H (26-34) PG MCHC 34.1 (30-36) % RDW 13.3 (11.6-14.8) % Plt Count 185 (150-400) X10^3/uL Neut % (Auto) 86.1 H (50-75) % Lymph % (Auto) 5.2 L (25-40) % [place] % (Auto) 8.3 (3-14) % Eos % (Auto) 0.0 L (2-4) % Baso % (Auto) 0.4 (0-2) % Neut # (Auto) 5700 (3946-7123) /uL Lymph # (Auto) 300 L (2634-8628) /uL [place] # (Auto) 600 (0-900) /uL Eos # (Auto) 0 (0-450) /uL Baso # (Auto) 0 (0-100) /uL PT 11.2 (10.1-12.7) SECONDS INR 1.0 (0.9-1.3) APTT 26 (26-36) SECONDS Sodium 137 (137-145) mmol/L Potassium 4.9 (3.4-5.1) mmol/L Chloride 104 (98-107) mmol/L Carbon Dioxide 24 (22-32) mmol/L BUN 34 H (9-20) mg/dL Creatinine 1.03 (0.66-1.25) mg/dL Estimated GFR > 60 (>60) mL/min BUN/Creatinine Ratio 33.0 H (6-22) Glucose 122 H (80-110) mg/dL Calcium 9.4 (8.4-10.2) mg/dL Imaging Data pelvis x-ray: Radiologist's Impression: PROCEDURE:? XR HIP W PEL IF DONE RT 2V ? INDICATIONS:? fall pain ? TECHNIQUE:? AP pelvis with lateral view(s) of the left hip(s).? ? COMPARISON:? [facility], CT, CT ABDOMEN PELVIS W CON, 03/01/2023, 9:33.? [facility], CR, HIP 2V LEFT, 12/11/2014, 16:15. ? FINDINGS:? ? Bones:? 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 Fracture of the right superior and inferior ramus.? No fractures or dislocations.? Pelvic ring appears intact.? No suspicious bony lesions.? ? Soft tissues:? The visualized bowel gas pattern is normal.? No suspicious soft tissue calcifications.? ? IMPRESSION:? Right superior and inferior ramus fracture. CTA LLE: Radiologist's Impression: PROCEDURE:? CT ANGIO LE LT ? INDICATIONS:? known fem clot on US ? TECHNIQUE:? After the administration of intravenous contrast, 2.5 mm sections acquired from T12 to the feet, with optional delayed image acquisition from the knees to the feet.? 3-dimensional maximum intensity projection (MIP) coronal and sagittal reformats, and/or 3-dimensional volume rendering reformatting was then performed.? For radiation dose reduction, the following was used:? automated exposure control.? ? COMPARISON:? [facility], US, US PERIPH VENOUS LOW EXTREM LT, 04/28/2023, 12:12. ? FINDINGS:? Image quality:? Portions of the lower pelvis are suboptimally evaluated secondary to metallic streak artifact from hip arthroplasty. ? Extravascular tissues:? Lung bases are clear.? Heart size is normal.? Liver is normal in size and enhancement.? Gallbladder is not visualized .? Biliary system is non di lated.? Pancreas enhances normally.? Spleen is normal in size and enhancement.? No adrenal nodules.? Kidneys are normal in size and enhancement, without hydronephrosis.? Non opacified bowel loops demonstrate normal wall thickness and enhancement.? No free fluid or air.? No retroperitoneal or mesenteric adenopathy.? No ventral hernias.? Bladder wall thickness is normal.? No inguinal hernias or adenopathy.? No suspicious bony lesions.? No vertebral body compression fractures.? Is ? Abdominal aorta:? Mild atherosclerotic wall calcifications are present without hemodynamically significant stenosis, vascular occlusion or aneurysmal dilation. ? Right lower extremity:? Visualized common iliac artery is patent.? Remaining vessels are not included within the field of view. ? Left lower extremity:? Common, internal and external iliac arteries are widely patent.? The common and superficial femoral artery demonstrate occlusion with wall calcification, extending to the distal superficial femoral artery.? There is very minimal appearance of central luminal contrast opacification within the distal common femoral artery, with increased reconstitution of flow extending to the popliteal artery.? The mid and distal aspect the popliteal appear to notable reconstitution although appearing diminutive in size.? There is a three-vessel bifurcation.? The anterior tibial artery is markedly diminutive and there appears to partial occlusion at the origin.? It appears to terminate within the mid calf.? Posterior tibial and peroneal arteries are diminutive in caliber but appear to remain patent to the foot. ? IMPRESSION:? ? 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 MDM Narrative Medical decision making narrative: The x-ray does show a superior and inferior pubic rami fracture on the right. With a walker and pain medicine patient is able to stand and walk without much discomfort. I did discuss these injuries with him. He can be weight-bearing as tolerated and use the walker as needed. Will send home with pain medication. Upon further questioning of the patient it does appear that his primary care doctor knows about the findings of the ultrasound of his left lower extremity. A CTA was ordered today for further evaluation of this. He is dopplerable PT and DP pulses. He is not having any lower extremity pain on the left. He states the swelling has improved. He states that the redness in his ankle which was initially diagnosis gout has vastly improved as well. He states that he has talked with his primary doctor and he has a referral to see a ?specialist? in [place] although he does not have a specific appointment and does not know the name of this provider. Patient is not on Plavix nor aspirin. He states he can not take aspirin because he is had GI issues in the past. He is also not on a statin. Given his presentation today he does not have any findings that would be consistent with an acute limb threatening occlusion of his left leg. The clots are potentially old clots as well. Given the fact that his swelling has improved he does have pulses in his left leg any has no discomfort with walking I will have him continue to follow-up with what is most likely vascular surgery as directed by his primary doctor. He was given return precautions. He expressed understanding and agreement. Discharge Plan Departure Patient Disposition: Home Clinical Impression: Fracture of superior ramus of right pubis, Fracture of right inferior pubic ramus, Femoral artery occlusion, right Instructions: How to Choose and Use a Walker, DI for Pelvic Fracture Activity Restrictions/Additional Instructions: The x-rays today do show that you have a superior and inferior pubic rami fracture on your right. This is most likely from the fall that you sustained today. You can walk on this side as needed. Please use your walker for support. Use the pain medication as needed. It appears that you already knew that there was a clot in your left femoral artery. It sounds like your primary doctor is getting you scheduled to see a specialist for this in [place]. I do recommend that you continue to follow-up with this. We are going to start you on 2 medicines. One is called Plavix/clopidogrel. Please take it as directed. The other 1 is called atorvastatin/Lipitor. Please take this as directed as well. Return to the emergency department for new or worsening symptoms. Prescriptions: New hydrocodone-acetaminophen 5-325 mg tablet 1 tab PO Q4-6H PRN (Reason: pain) Qty: 12 0RF clopidogrel [Plavix] 75 mg tablet 75 mg PO DAILY Qty: 30 0RF atorvastatin 40 mg tablet 40 mg PO DAILY Qty: 30 0RF No Action lisinopril 10 mg tablet 10 mg PO DAILY levofloxacin 250 mg Tablet 750 mg PO 0700 Qty: 7 0RF Referrals: Kraig Ramey MD [Primary Care Provider] - Stand Alone Forms: Patient Portal/API
[2023-04-30 18:55] LABS: Add Manual Diff / Slide Review NO; Basophils Absolute Auto 0 /uL (0-100); Basophils Percent Auto 0.4 % (0-2); Eosinophils Absolute Auto 0 /uL (0-450); Hematocrit 41.1 % (41-53); Lymphocytes Absolute Auto 300 /uL (1100-4500); Lymphocytes Percent Auto 5.2 % (25-40); Mean Corpuscular HGB Conc 34.1 % (30-36); Mean Corpuscular Hemoglobin 34.7 PG (26-34); Mean Corpuscular Volume 101.8 fL (80-100); Monocytes Absolute Auto 600 /uL (0-900); Monocytes Percent Auto 8.3 % (3-14); Neutrophils Absolute Auto 5700 /uL (1500-7000); Neutrophils Percent Auto 86.1 % (50-75); Platelet Count 185 X10^3/uL (150-400); Red Blood Cell Count 4.03 X10^6/uL (4.5-5.9); Red Cell Distribution Width 13.3 % (11.6-14.8); White Blood Cell Count 6.6 X10^3/uL (4.5-11.0)
[2023-04-30 19:01] LABS: Prothrombin Time 11.2 SECONDS (10.1-12.7)
[2023-04-30 19:03] LABS: Blood Urea Nitrogen 34 mg/dL (9-20); Calcium 9.4 mg/dL (8.4-10.2); Carbon Dioxide 24 mmol/L (22-32); Chloride 104 mmol/L (98-107); Estimated Glomerular Filt Rate > 60 mL/min (>60); Glucose 122 mg/dL (80-110); HEMOLYSIS < 15 (0-50); PTT Partial Thromboplastin Tim 26 SECONDS (26-36); Potassium 4.9 mmol/L (3.4-5.1); Sodium 137 mmol/L (137-145)
[2023-04-30] MEDS: HYDROCODONE/ACET 5/325 TABLET 1 TAB PO (21:09)
== END 2023-04-30 22:19 | disposition home or self-care (01) ==
PROVIDERS: Emergency Provider Emergency Medicine; PCP Family Medicine
DX: S32.511A Fracture of superior rim of right pubis, initial encounter for closed fracture (principal); S32.501A Unspecified fracture of right pubis, initial encounter for closed fracture; I70.201 Unspecified atherosclerosis of native arteries of extremities, right leg; W01.0XXA Fall on same level from slipping, tripping and stumbling without subsequent striking against object, initial encounter
CPT/HCPCS: 36415; 73502; 73706; 80048; 85025; 85610; 85730; 99284; Q9967

== ENCOUNTER 2023-05-04 10:22 | Emergency (ER) | payer OTHER, SELFPAY ==
[2023-03-01 11:57] VITALS: BMI 21.4
[2023-05-04 10:32] VITALS: BMI 22.6
[2023-05-04 10:42] VITALS: BP 159/74; PULSE 105; RESP 18; TEMP 37.2; O2SAT 94
--- NOTE | 2023-05-04 10:44 | PC.NURSE ---
Patient seen and evaluated for fall three days ago. Pain unmanageable at home, unable to safely get around at home. neighbor reports patient is using a office chair to roll around house. Able to bearweight and walk with walker but incredibly painful. Patient first noted bruising last night. Bruising noted from inside groin down to inner knee on right leg.
[2023-05-04 11:20] LABS: Add Manual Diff / Slide Review NO; Basophils Absolute Auto 0 /uL (0-100); Basophils Percent Auto 0.5 % (0-2); Eosinophils Absolute Auto 0 /uL (0-450); Eosinophils Percent Auto 0.2 % (2-4); Hematocrit 38.2 % (41-53); Lymphocytes Absolute Auto 400 /uL (1100-4500); Mean Corpuscular HGB Conc 34.2 % (30-36); Mean Corpuscular Hemoglobin 34.8 PG (26-34); Mean Corpuscular Volume 101.8 fL (80-100); Monocytes Absolute Auto 800 /uL (0-900); Monocytes Percent Auto 10.6 % (3-14); Neutrophils Absolute Auto 6200 /uL (1500-7000); Neutrophils Percent Auto 83.7 % (50-75); Platelet Count 157 X10^3/uL (150-400); Red Blood Cell Count 3.75 X10^6/uL (4.5-5.9); Red Cell Distribution Width 13.9 % (11.6-14.8); White Blood Cell Count 7.4 X10^3/uL (4.5-11.0)
[2023-05-04 11:32] LABS: Alanine Aminotransferase 27 IU/L (<50); Albumin 3.9 g/dL (3.5-5.0); Albumin Globulin Ratio 1.2 (1.0-2.8); Alkaline Phosphatase 85 U/L (38-126); Aspartate Aminotransferase 30 IU/L (17-59); BUN Creatinine Ratio 41.2 (6-22); Blood Urea Nitrogen 40 mg/dL (9-20); Calcium 8.9 mg/dL (8.4-10.2); Carbon Dioxide 24 mmol/L (22-32); Chloride 100 mmol/L (98-107); Estimated Glomerular Filt Rate > 60 mL/min (>60); Globulin 3.2 g/dL (1.7-4.1); Glucose 167 mg/dL (80-110); HEMOLYSIS < 15 (0-50); Lipase 81 U/L (23-300); Potassium 5.1 mmol/L (3.4-5.1); Sodium 133 mmol/L (137-145); Total Protein 7.1 g/dL (6.3-8.2)
[2023-05-04 11:36] LABS: Prothrombin Time 11.7 SECONDS (10.1-12.7)
[2023-05-04 11:39] LABS: PTT Partial Thromboplastin Tim 27 SECONDS (26-36)
--- NOTE | 2023-05-04 11:56 | ED_ITS ---
HPI - Extremity Injury (Lower) General Chief Complaint: Extremity Injury, Lower Stated Complaint: bruise hip to knee RT side/HX fall T-3 seen here Time Seen by Provider: 05/04/23 10:50 Mode of arrival: Family Vehicle History of Present Illness HPI Narrative: This is an 82-year-old male history of hypertension, dyslipidemia, gout, prior back injury with complaint of bruising on the right inner thigh. Patient had a fall Tuesday or Tuesday. States there was told that his neighbor had left in the driveway he did not realize it was full of rocks went to move it tipped over and caused him to fall. Patient states he felt on his buttocks. Had some pain was seen in the emergency department found to have inferior and superior pubic rami fracture on the right. He states he would actually been on his way to the hospital to be evaluated because he had an arterial blockage noted on ultrasound of his leg, while in the emergency department did have a angio which did show blockage patient has not had any other pain changes or issues. Patient denies any fall since then. He has continued to have some pain was sent with [facility] which has been minimally helpful he had a left over prescription of hydromorphone oral from prior back injury which he states was helpful. You has been getting around the house with a combination of walker on using a rolling chair. Patient denies any other symptoms but states that the bruising showed up last night does not seem to have worsening since last night to today but states it was not present the previous days. He does take Plavix daily. States had prior hip replacement, TURP and excision of small lesion which resulted in a wound about 2 years eventually healed. Allergic to penicillin. Former tobacco user, does drink 3 alcoholic drinks daily, no illicit. His primary care is Dr. Ramey. Related Data Home Medications Medication Instructions Recorded Confirmed lisinopril 10 mg tablet 10 mg PO DAILY 03/01/23 03/01/23 Previous Rx's Medication Instructions Recorded levofloxacin 250 mg tablet 750 mg PO 0700 #7 tabs 03/02/23 atorvastatin 40 mg tablet 40 mg PO DAILY #30 tabs 04/30/23 clopidogrel 75 mg tablet (Plavix) 75 mg PO DAILY #30 tabs 04/30/23 hydrocodone 5 mg-acetaminophen 325 1 tab PO Q4-6H PRN pain #12 tabs 04/30/23 mg tablet oxycodone 5 mg tablet 5 mg PO QID PRN pain #20 tabs 05/04/23 Allergies Allergy/AdvReac Type Severity Reaction Status Date / Time Penicillins [PENICILLINS] Allergy Severe LIKE Verified 05/04/23 10:38 GOING INTO SHOCK Review of Systems Review of Systems ROS Unobtainable: All systems reviewed & are unremarkable except as noted in HPI and below Patient History Surgical History S/P hip replacement Social History household members: none Smoking Status: Former smoker alcohol intake: current Smoking Status: Former smoker alcohol intake frequency: 3 or more drinks per day Alcohol type: wine Substance Use Type: does not use Exam Narrative Exam Narrative: GENERAL: Alert and oriented x three, male in mild distress HEENT: Head normocephalic, atraumatic, EOMI, pupils reactive, face symmetric, moist mucous membranes NECK: Supple, full range of motion CARDIOVASCULAR: Regular rate and rhythm without murmurs, rubs or gallops. RESPIRATORY: Breath sounds equal bilaterally, no wheezes rales or rhonchi. ABDOMEN: Soft, nontender. Normoactive bowel sounds all 4 quadrants. No guarding or rebound, rigidity, no mass, pelvic rock is negative. : No CVA tenderness. Male: normal external examination, no penile discharge or lesions, testicles non-tender, cremasteric reflex intact, no inguinal hernias noted. EXTREMITIES: Normal range of motion, no clubbing or edema. Neurovascularly intact. Patient has ecchymosis tracking from just below the right inguinal area down his thigh towards his knee no palpable hematoma, approximately 8 cm long by about 4 cm wide. Nontender to touch. No hematoma palpated in the right inguinal. Right femoral pulse intact. NEUROLOGICAL: Cranial nerves II through XII grossly intact. Moving all extremities SKIN: Warm, dry, no petechiae, no rashes or lesions otherwise noted. Initial Vital Signs Initial Vital Signs: Vital Signs Temperature 98.9 F 05/04/23 10:42 Pulse Rate 105 H 05/04/23 10:42 Respiratory Rate 18 05/04/23 10:42 Blood Pressure 159/74 H 05/04/23 10:42 Pulse Oximetry 94 05/04/23 10:42 Oxygen Delivery Method Room Air 05/04/23 10:42 Course Orders Ordered: ED Orders 05/04/23 10:46 Consult to [facility] - Reimbursement Coordinator Stat 05/04/23 11:02 CBC Auto Diff [Complete Blood Count AUTO DIFF] Stat CMP [Comprehensive Metabolic Panel] Stat Lipase Stat PTT Partial Thromboplastin Brandon Stat Prothrombin Time INR Stat 05/04/23 12:49 CT pelvis w con Stat Discontinued Medications Oxycodone HCl (Oxycodone Ir 5 Mg Tablet) 10 mg PO NOW ONE Stop: 05/04/23 14:23 Last Admin: 05/04/23 14:26 Dose: 10 mg Documented By: [facility] Vital Signs Vital signs: Vital Signs - 8 hr 05/04/23 14:26 05/04/23 12:00 05/04/23 12:30 Pulse Rate 88 79 89 Blood Pressure 164/87 H 120/58 L 170/83 H Pulse Oximetry 97 93 95 Oxygen Delivery Method Room Air Room Air 05/04/23 13:00 05/04/23 14:00 Pulse Rate 83 84 Blood Pressure Pulse Oximetry 96 98 Oxygen Delivery Method Room Air Room Air MDM - Extremity Injury (Lower) Lab Data 05/04/23 11:02 05/04/23 11:02 Labs: Lab Results 05/04/23 05/04/23 05/04/23 Range/Units 11:02 11:02 11:02 WBC 7.4 (4.5-11.0) X10^3/uL RBC 3.75 L (4.5-5.9) X10^6/uL Hgb 13.0 L (13.5-17.5) g/dL Hct 38.2 L (41-53) % MCV 101.8 H (80-100) fL MCH 34.8 H (26-34) PG MCHC 34.2 (30-36) % RDW 13.9 (11.6-14.8) % Plt Count 157 (150-400) X10^3/uL Neut % (Auto) 83.7 H (50-75) % Lymph % (Auto) 5.0 L (25-40) % [place] % (Auto) 10.6 (3-14) % Eos % (Auto) 0.2 L (2-4) % Baso % (Auto) 0.5 (0-2) % Neut # (Auto) 6200 (4204-1573) /uL Lymph # (Auto) 400 L (4454-2734) /uL [place] # (Auto) 800 (0-900) /uL Eos # (Auto) 0 (0-450) /uL Baso # (Auto) 0 (0-100) /uL PT 11.7 (10.1-12.7) SECONDS INR 1.0 (0.9-1.3) APTT 27 (26-36) SECONDS Sodium 133 L (137-145) mmol/L Potassium 5.1 (3.4-5.1) mmol/L Chloride 100 (98-107) mmol/L Carbon Dioxide 24 (22-32) mmol/L BUN 40 H (9-20) mg/dL Creatinine 0.97 (0.66-1.25) mg/dL Estimated GFR > 60 (>60) mL/min BUN/Creatinine Ratio 41.2 H (6-22) Glucose 167 H (80-110) mg/dL Calcium 8.9 (8.4-10.2) mg/dL Total Bilirubin 2.0 H (0.2-1.3) mg/dL AST 30 (17-59) IU/L ALT 27 (<50) IU/L Alkaline Phosphatase 85 (38-126) U/L Total Protein 7.1 (6.3-8.2) g/dL Albumin 3.9 (3.5-5.0) g/dL Globulin 3.2 (1.7-4.1) g/dL Albumin/Globulin Ratio 1.2 (1.0-2.8) Lipase 81 (23-300) U/L Imaging Data CT scan - abdomen/pelvis: Radiologist's Impression: [address] [address] [address] Scan Report Signed Patient: Renard Iniguez MR#: [id number] : 1940 Acct:[id number] Age/Sex: 82 / M Date of Service: 05/04/23 Loc: ED Accession Number: [id number] ?? Procedure: CT pelvis w con Ordering Provider: Nadja Nunn D.O. PROCEDURE:? CT PELVIS W CON ? INDICATIONS:? new bruising left thigh, s/p pelvic fx tuesday ? TECHNIQUE:? After the administration of intravenous contrast, 5 mm thick sections acquired from the iliac crests to the symphysis.? 5 mm coronal and sagittal reformats were acquired.? For radiation dose reduction, the following was used:? automated exposure control, adjustment of mA and/or kV according to patient size.? ? COMPARISON:? [facility], CT, CT ABDOMEN PELVIS W CON, 03/01/2023, 9:33.? [facility], US, US PERIPH VENOUS LOW EXTREM LT, 04/28/2023, 12:12.? [facility], CR, XR HIP W PEL IF DONE RT 2V, 04/30/2023, 17:49.? [facility], CT, CT ANGIO LE LT, 04/30/2023, 19:16. ? FINDINGS:? Image quality:? Excellent.? ? Peritoneum and bowel:? Bowel loops demonstrate normal wall thickness and caliber.? No free fluid or air.? ? Genitourinary:? Bladder wall thickness is normal.? ? Nodes and vessels:? No iliac, pelvic, or inguinal adenopathy by size criteria.? Iliac vessels demonstrate normal size and enhancement.? Wyvf-hi-[id number] atherosclerotic calcifications are in noted throughout visualized distal abdominal aorta and bilateral iliac arteries.? Patient's known occluded left common femoral and superficial femoral artery is less well seen on this study due to study technique. ? Bones:? N right superior and inferior pubic rami fractures are again seen with minimal displacement at fracture sites.? There is also insufficiency fracture involving right sacrum with fracture line extending to anterior cortex of right sacrum.? Diffuse osteopenia is noted.? Prior left total hip arthroplasty is again seen with significant beam hardening artifacts.? No other fracture or dislocation.? No suspicious bony lesions. ?Moderate right hip joint osteoarthritic changes are seen.? No evidence of avascular necrosis of femoral head.? Chronic appearing mild compression deformities in visualized L4 on L5 vertebral bodies are seen. ? Miscellaneous:? No inguinal hernias.? No large soft tissue or intramuscular hematoma is seen. ? IMPRESSION:? ? 1. Acute slightly comminuted and minimally displaced fractures involving right superior and inferior pubic rami.? Right sacral insufficiency fracture.? Diffuse osteopenia. ? 2. Prior left total hip arthroplasty.? No evidence of hardware loosening or failure.? Moderate right hip joint osteoarthritis.? No evidence of avascular necrosis. ? ? 3. No large soft tissue or intramuscular hematoma formation.? No pelvic free fluid or free air.? No abscess collection.? ? Dictated by: Trav De Jesus M.D. on 05/04/2023 at 13:15 ? ? Approved by: Trav De Jesus M.D. on 05/04/2023 at 13:23?? MDM Narrative Medical decision making narrative: This is an 82-year-old male who presents with complaint of new ecchymosis after a fall last weekend for inferior superior pubic rami by fracture. Patient noted some new bruising his right inner thigh. He was also seen and had CT angio to evaluate for clot was found to have an arterial clot in the left he has not had any new changes or other worsening symptoms. Patient states bruising is new did not occur until several days after fall and being seen. Labs appear stable, no major changes to hemoglobin, electrolytes renal function. Patient was taking some hydromorphone at home that he had left over he states the [place] was not helpful. Discussed increasing to oxycodone to see if this would be more adequate. Patient is not too interested in PT or home health referral. He politely refuses [facility] evaluation or this. Patient had CT of his pelvis redemonstrates pubic rami fracture and has a right sacral insufficiency fracture. This was reviewed with Dr. Steward who did review images. Can weightbear as tolerated with walker, pain management and follow-up for evaluation and treatment of his osteoporosis. Patient would like to return home. Patient ambulated in department. Was quite hopeful to have a prescription for hydromorphone but has not tried anything intermittent very he had [place] which was not helpful. We will give oxycodone here in the department, prescription for this if in adequate candidate crease. Patient does have several tablets of hydromorphone still at home left over. Discharge Plan Departure Patient Disposition: Home Clinical Impression: Sacral insufficiency fracture, Closed fracture of pubic ramus, Traumatic ecchymosis of right thigh Instructions: DI for Pelvic Fracture Activity Restrictions/Additional Instructions: Please follow-up with your physician for recheck. You have pubic rami fracture on the right as well as a sacral insufficiency fracture. Please follow-up with your physician or orthopedic surgery for follow-up and osteoporosis workup. Is recommended that you take vitamin-D and calcium regularly for your bone health. You can take Tylenol up to a 1000 mg every 6 hours You may take 1-2 tablets of oxycodone every 4-6 hours as needed for pain. This medication can make you sleepy do not drive, perform hazardous activities or make any major decisions while taking it. This medication will make you constipated please take a stool softener once to twice daily until stools are soft and regular. Prescription sent to [facility]. Please return for new or worsening symptoms, new weakness, numbness, difficulty with your leg, loss of bowel or bladder control, rapidly worsening pain, lightheadedness or passing out, recurrent falls or other new or concerning changes. Prescriptions: New oxycodone 5 mg tablet 5 mg PO QID PRN (Reason: pain) Qty: 20 0RF Rx Instructions: May taek 1-2 tablets Q 6 hours as needed. No Action lisinopril 10 mg tablet 10 mg PO DAILY levofloxacin 250 mg Tablet 750 mg PO 0700 Qty: 7 0RF hydrocodone-acetaminophen 5-325 mg tablet 1 tab PO Q4-6H PRN (Reason: pain) Qty: 12 0RF clopidogrel [Plavix] 75 mg tablet 75 mg PO DAILY Qty: 30 0RF atorvastatin 40 mg tablet 40 mg PO DAILY Qty: 30 0RF Referrals: Hina Arguelles MD [Physician] - Kraig Ramey MD [Primary Care Provider] - Stand Alone Forms: Patient Portal/API
[2023-05-04 12:00] VITALS: BP 120/58; PULSE 79; O2SAT 93
[2023-05-04 12:30] VITALS: BP 170/83; PULSE 89; O2SAT 95
--- NOTE | 2023-05-04 12:49 | DI.CT.S_ITS ---
PROCEDURE: CT PELVIS W CON INDICATIONS: new bruising left thigh, s/p pelvic fx tuesday TECHNIQUE: After the administration of intravenous contrast, 5 mm thick sections acquired from the iliac crests to the symphysis. 5 mm coronal and sagittal reformats were acquired. For radiation dose reduction, the following was used: automated exposure control, adjustment of mA and/or kV according to patient size. COMPARISON: [facility], CT, CT ABDOMEN PELVIS W CON, 03/01/2023, 9:33. [facility], US, US PERIPH VENOUS LOW EXTREM LT, 04/28/2023, 12:12. [facility], CR, XR HIP W PEL IF DONE RT 2V, 04/30/2023, 17:49. [facility], CT, CT ANGIO LE LT, 04/30/2023, 19:16. FINDINGS: Image quality: Excellent. Peritoneum and bowel: Bowel loops demonstrate normal wall thickness and caliber. No free fluid or air. Genitourinary: Bladder wall thickness is normal. Nodes and vessels: No iliac, pelvic, or inguinal adenopathy by size criteria. Iliac vessels demonstrate normal size and enhancement. Effb-jz-[id number] atherosclerotic calcifications are in noted throughout visualized distal abdominal aorta and bilateral iliac arteries. Patient's known occluded left common femoral and superficial femoral artery is less well seen on this study due to study technique. Bones: N right superior and inferior pubic rami fractures are again seen with minimal displacement at fracture sites. There is also insufficiency fracture involving right sacrum with fracture line extending to anterior cortex of right sacrum. Diffuse osteopenia is noted. Prior left total hip arthroplasty is again seen with significant beam hardening artifacts. No other fracture or dislocation. No suspicious bony lesions. Moderate right hip joint osteoarthritic changes are seen. No evidence of avascular necrosis of femoral head. Chronic appearing mild compression deformities in visualized L4 on L5 vertebral bodies are seen. Miscellaneous: No inguinal hernias. No large soft tissue or intramuscular hematoma is seen. IMPRESSION: 1. Acute slightly comminuted and minimally displaced fractures involving right superior and inferior pubic rami. Right sacral insufficiency fracture. Diffuse osteopenia. 2. Prior left total hip arthroplasty. No evidence of hardware loosening or failure. Moderate right hip joint osteoarthritis. No evidence of avascular necrosis. 3. No large soft tissue or intramuscular hematoma formation. No pelvic free fluid or free air. No abscess collection. Dictated by: Trav De Jesus M.D. on 05/04/2023 at 13:15 Approved by: Trav De Jesus M.D. on 05/04/2023 at 13:23
[2023-05-04 13:00] VITALS: PULSE 83; O2SAT 96
[2023-05-04 14:00] VITALS: PULSE 84; O2SAT 98
[2023-05-04 14:26] VITALS: BP 164/87; PULSE 88; O2SAT 97
[2023-05-04] MEDS: OXYCODONE IR 5 MG TABLET 10 MG PO (14:26)
--- NOTE | 2023-05-04 14:35 | PC.NURSE ---
per patient request [facility] set up for delivery.
== END 2023-05-04 14:38 | disposition home or self-care (01) ==
PROVIDERS: Emergency Provider Emergency Medicine; PCP Family Medicine
DX: S32.599A Other specified fracture of unspecified pubis, initial encounter for closed fracture (principal); S32.10XA Unspecified fracture of sacrum, initial encounter for closed fracture; S70.11XA Contusion of right thigh, initial encounter; W18.30XA Fall on same level, unspecified, initial encounter
CPT/HCPCS: 36415; 72193; 80053; 83690; 85025; 85610; 85730; 99284; Q9967

== ENCOUNTER 2023-08-12 18:18 | Emergency (ER) | payer OTHER, SELFPAY ==
[2023-03-01 11:57] VITALS: BMI 21.4
[2023-08-12 18:37] VITALS: BP 199/79; PULSE 89; RESP 16; TEMP 36.6; O2SAT 96; BMI 26.7
--- NOTE | 2023-08-12 18:45 | DI.US.S_ITS ---
PROCEDURE: US PERIPH VENOUS LOW EXTREM RT INDICATIONS: RIGHT LOWER EXTREMITY EDEMA TECHNIQUE: Real-time imaging, as well as color and pulse Doppler interrogation, were performed of the lower extremity deep veins from the inguinal ligament to the popliteal fossa, with documentation of the visualized calf veins. COMPARISON: None. FINDINGS: The common femoral, femoral, popliteal, and the visualized calf veins are normally compressible, and free of intraluminal thrombus. Color and pulse Doppler demonstrate normal phasic intraluminal flow. There is normal augmentation response to distal compression maneuver. Severe subcutaneous soft tissue edema in right calf region is seen. IMPRESSION: No evidence of DVT in visualized right lower extremity veins. Right calf soft tissue edema. Dictated by: Trav De Jesus M.D. on 08/12/2023 at 19:03 Approved by: Trav De Jesus M.D. on 08/12/2023 at 19:04
--- NOTE | 2023-08-12 19:30 | ED.EXTPRO ---
HPI - Extremity Problem General Chief complaint: Extremity Problem,Nontraumatic Stated complaint: swollen rt leg Time Seen by Provider: 08/12/23 19:30 Source: patient Mode of arrival: Ambulatory Limitations: no limitations History of Present Illness HPI Narrative: This is an 82-year-old male with history of hypertension, dyslipidemia, gout, prior back injury, prior sacral insufficiency fracture and pubic rami fracture with complaint of increasing redness and swelling in his right lower extremity. He states he is had swelling of both legs he is on torsemide currently he is taking it 4 times daily at 20 mg he states he is noticed increasing swelling moving up the leg in his right lower extremity he states his ankles are actually improved. He was using compression stockings but stopped seemed to be pushing the swelling upwards. Patient states there has been some redness he does not think it is much worse but he is noted an old injury from when he was a kid seems to be opening back up a little bit. He states it does not feel like it is infected. He denies fevers, no chest pain, no shortness of breath, no orthopnea, no nausea no vomiting, no diarrhea constipation. He states he has been urinating okay but has had urinary retention in the past. Patient states current medications are atorvastatin, torsemide 20 mg 4 times daily, he does not take an aspirin daily or Plavix. States allergic to penicillin. Related Data Home Medications Medication Instructions Recorded Confirmed lisinopril 10 mg tablet 10 mg PO DAILY 03/01/23 03/01/23 Previous Rx's Medication Instructions Recorded levofloxacin 250 mg tablet 750 mg (3 x 250 mg) PO 0700 #7 tabs 03/02/23 atorvastatin 40 mg tablet 40 mg PO DAILY #30 tabs 04/30/23 clopidogrel 75 mg tablet (Plavix) 75 mg PO DAILY #30 tabs 04/30/23 hydrocodone 5 mg-acetaminophen 325 1 tab PO Q4-6H PRN pain #12 tabs 04/30/23 mg tablet oxycodone 5 mg tablet 5 mg PO QID PRN pain #20 tabs 05/04/23 sulfamethoxazole 800 1 tab PO BID #10 tabs 08/12/23 mg-trimethoprim 160 mg tablet (Bactrim DS) tamsulosin 0.4 mg capsule (Flomax) 0.4 mg PO DAILY #10 caps 10/20/23 torsemide 20 mg tablet 20 mg PO .5timesdaily #30 tabs 08/12/23 Allergies Allergy/AdvReac Type Severity Reaction Status Date / Time Penicillins [PENICILLINS] Allergy Severe LIKE Verified 05/04/23 10:38 GOING INTO SHOCK Review of Systems Review of Systems ROS Unobtainable: All systems reviewed & are unremarkable except as noted in HPI and below Patient History Surgical History S/P hip replacement Social History household members: none Smoking Status: Former smoker alcohol intake: current Smoking Status: Former smoker alcohol intake frequency: 3 or more drinks per day Alcohol type: wine Substance Use Type: does not use Exam Narrative Exam Narrative: GENERAL: Alert and oriented x three, thin elderly male in mild distress. HEENT: Head normocephalic, atraumatic, EOMI, pupils reactive, face symmetric, moist mucous membranes NECK: Supple, full range of motion CARDIOVASCULAR: Regular rate and rhythm without murmurs, rubs or gallops. RESPIRATORY: Breath sounds equal bilaterally, no wheezes rales or rhonchi. ABDOMEN: Soft, nontender. Nondistended. Normoactive bowel sounds all 4 quadrants. No guarding or rebound, rigidity, no mass : No CVA tenderness EXTREMITIES: Normal range of motion, no clubbing. Neurovascularly intact. Patient does have swelling bilateral lower extremities but right significantly greater than the left. There is quite a bit of erythema of the anterior barnett of the right lower leg, he has several small scabs over the area but no clear open wounds. Patient does have mild edema. No pedal edema. He is pulses equal bilateral lower extremities. Cap refill less than 3 seconds bilaterally. NEUROLOGICAL: Cranial nerves II through XII grossly intact. Moving all extremities SKIN: Warm, dry, no petechiae, no rashes or lesions other than noted above. Initial Vital Signs Initial Vital Signs: Vital Signs Temperature 97.8 F 08/12/23 18:37 Pulse Rate 89 08/12/23 18:37 Respiratory Rate 16 08/12/23 18:37 Blood Pressure 199/79 H 08/12/23 18:37 Pulse Oximetry 96 08/12/23 18:37 Oxygen Delivery Method Room Air 08/12/23 18:37 Course Orders Ordered: ED Orders 08/13/23 04:30 Urine Culture Stat Vital Signs Vital signs: Vital Signs - 8 hr 08/12/23 21:04 08/12/23 21:04 Temperature 98.5 F Pulse Rate 72 Respiratory Rate 20 Blood Pressure 175/84 H Pulse Oximetry 99 MDM - Extremity (Nontraumatic) Lab Data Labs: Urine Dip Bedside Urine Glucose Negative Bedside Urine Bilirubin - Negative Bedside Urine Ketone - Negative Urine Specific [place] 1.010 Bedside Urine Occult Blood - Negative Bedside Urine pH 7.0 Bedside Urine Protein - Negative Bedside Urine Urobilinogen - Negative Bedside Urine Nitrite - Negative Bedside Urine Leukocytes - Negative Esterase Imaging Data US - DVT: Radiologist's Impression: [address] [address] Ultrasound Report Signed Patient: Renard Iniguez MR#: [id number] : 1940 Acct:[id number] Age/Sex: 82 / M Date of Service: 08/12/23 Loc: ED Accession Number: [id number] Procedure: US [facility] venous low extrem rt Ordering Provider: Nadja Nunn D.O. PROCEDURE: US PERIP VENOUS LOW EXTREM RT INDICATIONS: RIGHT LOWER EXTREMITY EDEMA TECHNIQUE: Real-time imaging, as well as color and pulse Doppler interrogation, were performed of the lower extremity deep veins from the inguinal ligament to the popliteal fossa, with documentation of the visualized calf veins. COMPARISON: None. FINDINGS: The common femoral, femoral, popliteal, and the visualized calf veins are normally compressible, and free of intraluminal thrombus. Color and pulse Doppler demonstrate normal phasic intraluminal flow. There is normal augmentation response to distal compression maneuver. Severe subcutaneous soft tissue edema in right calf region is seen. IMPRESSION: No evidence of DVT in visualized right lower extremity veins. Right calf soft tissue edema. Dictated by: Trav De Jesus M.D. on 08/12/2023 at 19:03 Approved by: Trav De Jesus M.D. on 08/12/2023 at 19:04 [facility] Narrative Medical decision making narrative: Discussed with patient maybe developing a little bit of a superficial skin infection/cellulitis. Versus having persistent edema. Discussed can increase his torsemide for the short term, compression stockings although he is very reluctant to wear these not secondary to pain but just feels like it pushes the fluid in the wrong direction and oral antibiotic not improving. Patient feels comfortable with this plan. Patient did request to have bladder scan as he states he has been urinating okay today but had some difficulty yesterday. He is had urinary retention in the past had a TURP and state it was improved but he feels like he might be distended. He states he does not have any pain but last time he had a L in his abdomen and did not have any pain at that time. Bladder scan showed about 800, postvoid residual was still quite elevated. Patient had Johnston catheter placed urine was sent for culture. Discharge Plan Departure Patient Disposition: Home Clinical Impression: Edema of right lower leg, Cellulitis of leg, right, Acute on chronic urinary retention Activity Restrictions/Additional Instructions: Please follow-up with your physician at your scheduled appointment next week. You did have quite a bit of urine retained in her bladder today, Johnston catheter was placed. Please follow-up with urology. Increase your torsemide to 20mg five times daily. I would recommend taking an oral antibiotic as you may developing an infection in the anterior barnett. I would recommend taking Flomax once daily to see if this helps with your urinary retention. Prescriptions sent to [facility] Please return for increasing swelling, redness, pain, fevers, new chest pain or shortness of breath, difficulty with her catheter, urinating or other new or concerning changes. Prescriptions: New torsemide 20 mg tablet 20 mg PO .5timesdaily Qty: 30 0RF tamsulosin [Flomax] 0.4 mg capsule 0.4 mg PO DAILY Qty: 10 0RF sulfamethoxazole-trimethoprim [Bactrim DS] 800-160 mg tablet 1 tab PO BID Qty: 10 0RF No Action lisinopril 10 mg tablet 10 mg PO DAILY levofloxacin 250 mg Tablet 750 mg PO 0700 Qty: 7 0RF hydrocodone-acetaminophen 5-325 mg tablet 1 tab PO Q4-6H PRN (Reason: pain) Qty: 12 0RF clopidogrel [Plavix] 75 mg tablet 75 mg PO DAILY Qty: 30 0RF atorvastatin 40 mg tablet 40 mg PO DAILY Qty: 30 0RF oxycodone 5 mg tablet 5 mg PO QID PRN (Reason: pain) Qty: 20 0RF Rx Instructions: May taek 1-2 tablets Q 6 hours as needed. Referrals: Rhett Yung MD [Physician] - Kraig Ramey MD [Primary Care Provider] - Stand Alone Forms: Patient Portal/API
[2023-08-12 21:04] VITALS: BP 175/84; PULSE 72; RESP 20; TEMP 36.9; O2SAT 99
== END 2023-08-12 22:14 | disposition home or self-care (01) ==
PROVIDERS: Emergency Provider Emergency Medicine; PCP Family Medicine
DX: L03.116 Cellulitis of left lower limb (principal); R60.0 Localized edema; R33.8 Other retention of urine
CPT/HCPCS: 51798; 81003; 87086; 93971; 99283; 99284

== ENCOUNTER → 2023-09-08 16:15 | Outpatient (CLI) | payer OTHER, SELFPAY ==
[2023-03-01 11:57] VITALS: BMI 21.4
--- NOTE | 2023-09-08 | DI.RAD.S_ITS ---
PROCEDURE: XR FOOT LT MIN 3V INDICATIONS: Pain of toe of left foot TECHNIQUE: 3 views of the foot were acquired. COMPARISON: None. FINDINGS: Bones: No fractures or dislocations. No suspicious bony lesions. Mild midfoot osteoarthritis. Mild 1st MTP and PIP joint osteoarthritis. Soft tissues: No tibiotalar joint effusion. Achilles tendon appears normal. IMPRESSION: No acute bony abnormality. Mild osteoarthritis. Dictated by: Cristiana Reese MD, PhD on 09/08/2023 at 16:51 Approved by: Cristiana Reese MD, PhD on 09/08/2023 at 16:52
== END ==
PROVIDERS: PCP Family Medicine; Referring Provider Family Medicine; Visit Provider Family Medicine
DX: M19.072 Primary osteoarthritis, left ankle and foot (principal); M79.675 Pain in left toe(s)
CPT/HCPCS: 73630

== ENCOUNTER → 2023-09-13 14:48 | Outpatient (CLI) | payer OTHER, SELFPAY ==
[2023-03-01 11:57] VITALS: BMI 21.4
== END ==
PROVIDERS: PCP Family Medicine; Visit Provider Urology
DX: R39.9 Unspecified symptoms and signs involving the genitourinary system (principal); R33.9 Retention of urine, unspecified; Z98.890 Other specified postprocedural states; Z90.79 Acquired absence of other genital organ(s); Z87.448 Personal history of other diseases of urinary system; Z85.46 Personal history of malignant neoplasm of prostate; Z97.8 Presence of other specified devices
CPT/HCPCS: 51702; 87086; 99214

== ENCOUNTER → 2023-10-14 09:11 | Outpatient (CLI) | payer OTHER, SELFPAY ==
[2023-03-01 11:57] VITALS: BMI 21.4
== END ==
PROVIDERS: PCP Family Medicine; Visit Provider Specialist
DX: R39.9 Unspecified symptoms and signs involving the genitourinary system (principal)
CPT/HCPCS: 51702; 87077; 87086; 87186

== ENCOUNTER → 2023-11-18 14:38 | Outpatient (CLI) | payer OTHER, SELFPAY ==
[2023-03-01 11:57] VITALS: BMI 21.4
[2023-11-18 15:24] LABS: BUN Creatinine Ratio 29.7 (6-22); Blood Urea Nitrogen 38 mg/dL (9-20); Estimated Glomerular Filt Rate 56 mL/min (>60)
== END ==
PROVIDERS: PCP Family Medicine; Referring Provider Urology; Visit Provider Urology
DX: R33.9 Retention of urine, unspecified (principal); B37.49 Other urogenital candidiasis; Z87.448 Personal history of other diseases of urinary system
CPT/HCPCS: 36415; 82565; 84520

== ENCOUNTER → 2023-11-19 14:44 | Outpatient (CLI) | payer OTHER, SELFPAY ==
[2023-03-01 11:57] VITALS: BMI 21.4
--- NOTE | 2023-11-19 14:45 | DI.CT.S_ITS ---
PROCEDURE: CT ABDOMEN PELVIS WO/W CON INDICATIONS: Urine retention history of bladder stone pelvic fluid collec TECHNIQUE: Optional 5 mm thick noncontrast images acquired from the diaphragm to the symphysis pubis. After the administration of intravenous contrast, 5 mm thick images acquired from the diaphragm to the symphysis pubis after a 10-minute delay. 2 mm thick coronal and sagittal reformats were then performed of the kidneys and ureters. For radiation dose reduction, the following was used: automated exposure control, adjustment of mA and/or kV according to patient size. COMPARISON: [facility], CT, CT PELVIS W CON, 05/04/2023, 13:02. [facility], CT, CT ABDOMEN PELVIS W CON, 03/01/2023, 9:33. FINDINGS: Image quality: Diagnostic. Kidneys and Ureters: Both kidneys are normal in size, without hydronephrosis or nephrolithiasis. No perinephric fat stranding. There is normal bilateral renal enhancement. A simple cyst is seen at the inferior pole of the right kidney. Renal calyces appear normal in morphology when filled with contrast. Opacified portions of both ureters demonstrate normal caliber Bladder: A Johnston catheter is seen in the bladder. Bladder wall appears mildly thickened, but is not well evaluated due to underdistention. The anterior bladder partially extends into a right inguinal hernia. No calcified bladder stones. OTHER: Lower chest: Coronary artery calcifications are present. Moderate hiatal hernia. Liver: Multiple tiny subcentimeter hypodensities in the liver are too small to characterize, but are most likely cysts. Gallbladder: No radiopaque gallstones or wall thickening. Biliary ducts: No biliary dilation. Pancreas: No ductal dilation. Spleen: Size is within normal limits. Adrenal Glands: No adrenal nodules. Stomach and Bowel: A few scattered diverticula are seen in the colon without signs of acute colitis. Moderate hiatal hernia. Small bowel loops are unremarkable. Appendix appears normal. Peritoneum: No abnormal intraperitoneal fluid. No free air. Ventral Wall: No hernia. Abdominal Nodes: No retroperitoneal or mesenteric adenopathy by size criteria. Vessels: Aorta and inferior vena cava are normal in size. PELVIS: Pelvic Organs: Unremarkable. Pelvic Nodes: No enlarged lymph nodes. Miscellaneous: Small right inguinal hernia contains fat and a small portion of the anterior bladder. Bones: A left hip arthroplasty is present with associated metal artifact obscures adjacent structures. Heterotopic calcifications are seen adjacent to the left hip. Moderate fracture deformity is seen at the right pubic bone. Prior sacral fracture is noted. There is generalized osteopenia. Multilevel lumbar spinal compression fractures are seen at L1 through L5 and T11, which do not appear significantly changed when compared to the CT from 03/01/2023. IMPRESSION: 1. No nephrolithiasis or filling defects within the opacified renal collecting system or ureters. 2. Apparent diffuse bladder wall thickening may be related to underdistention. Anterior bladder extends into a small right inguinal hernia. 3. Generalized osteopenia. Multiple chronic thoracic and lumbar spine compression fractures. Chronic fracture deformities of the right pubic bone and sacrum. 4. Colonic diverticulosis. Moderate hiatal hernia. Approved by: Alban Benites M.D. on 11/20/2023 at 13:58
== END ==
PROVIDERS: PCP Family Medicine; Referring Provider Urology; Visit Provider Urology
DX: R33.9 Retention of urine, unspecified (principal); B37.49 Other urogenital candidiasis; Z87.448 Personal history of other diseases of urinary system; K40.90 Unilateral inguinal hernia, without obstruction or gangrene, not specified as recurrent; M85.89 Other specified disorders of bone density and structure, multiple sites; M48.56XA Collapsed vertebra, not elsewhere classified, lumbar region, initial encounter for fracture; M48.54XA Collapsed vertebra, not elsewhere classified, thoracic region, initial encounter for fracture; K44.9 Diaphragmatic hernia without obstruction or gangrene; K57.90 Diverticulosis of intestine, part unspecified, without perforation or abscess without bleeding
CPT/HCPCS: 74178; Q9967

== ENCOUNTER → 2023-12-14 16:21 | Outpatient (CLI) | payer OTHER, SELFPAY ==
[2023-12-08 09:47] VITALS: BMI 21.4
== END ==
PROVIDERS: PCP Family Medicine; Visit Provider Urology
DX: R39.9 Unspecified symptoms and signs involving the genitourinary system (principal); R33.9 Retention of urine, unspecified; Z97.8 Presence of other specified devices
CPT/HCPCS: 51702; 87086; 99214

== ENCOUNTER → 2024-01-10 14:39 | Outpatient (CLI) | payer OTHER, SELFPAY ==
[2023-12-08 09:47] VITALS: BMI 21.4
== END ==
PROVIDERS: PCP Family Medicine; Visit Provider Urology
DX: R33.9 Retention of urine, unspecified (principal); R39.9 Unspecified symptoms and signs involving the genitourinary system; Z97.8 Presence of other specified devices
CPT/HCPCS: 51702; 87077; 87086; 87186

== ENCOUNTER → 2024-01-27 08:32 | Outpatient (CLI) | payer OTHER, SELFPAY ==
[2023-12-08 09:47] VITALS: BMI 21.4
--- NOTE | 2024-01-27 | DI.MG.S_ITS ---
MALE BILATERAL DIGITAL DIAGNOSTIC MAMMOGRAM 3D/2D: 01/27/2024 CLINICAL: Palpable left breast lump. No prior exams were available for comparison. There is gynecomastia in both breasts, left more so than right, that correlates with reported pain and palpable area. No significant masses, calcifications, or other findings are seen in either breast. Breast tissue appears normal. IMPRESSION: BENIGN Asymmetric gynecomastia is present and may be symptomatic. The left breast is larger than the right. The patient should follow up with his primary care physician to discuss possible contributing factors including medication changes, and hormonal or lifestyle factors. Findings and recommendations were conveyed to the patient at time of exam. This exam was interpreted at Station ID: [id number]. NOTE: For mammograms, a report in lay terms will be sent to the patient. Approximately 15% of breast malignancies will not be visualized mammographically. In the management of a palpable breast mass, a negative mammogram must not discourage biopsy of a clinically suspicious lesion. Electronically Signed By: Paula machado/:01/27/2024 09:44:00 Entry: - 01/30/2024 10:39:31 letter sent: Male Normal Exam ACR BI-RADS Category 2: Benign Finding(s) 3342F
== END ==
PROVIDERS: PCP Family Medicine; Referring Provider Family Medicine; Visit Provider Family Medicine
DX: N63.42 Unspecified lump in left breast, subareolar (principal); N62 Hypertrophy of breast
CPT/HCPCS: 77066; G0279

== ENCOUNTER 2024-01-28 14:10 | Emergency (ER) | payer OTHER, SELFPAY ==
[2023-12-08 09:47] VITALS: BMI 21.4
[2024-01-28 14:28] VITALS: BP 193/98; PULSE 98; RESP 14; TEMP 36.7; O2SAT 99; BMI 22.8
--- NOTE | 2024-01-28 14:41 | ED.MALEGU ---
HPI - Male Genitourinary <Teo Michelle PA-C - Last Filed: 01/28/24 15:54> General Chief complaint: Urogenital-Male Stated complaint: Catheter issue Time Seen by Provider: 01/28/24 14:33 Source: patient Mode of arrival: Ambulatory History of Present Illness HPI Narrative: This is a 83-year-old male presents emergency department due to reports of a milky white discharge coming from his penis around the his indwelling chronic urinary catheter. He states that there was no problems with the drainage of the catheter. He denies any dysuria or urinary frequency me. States that the white discharge just started earlier this morning. Does not appear ?clumpy? oral like cottage she is. No recent sexual activity. Denies any fevers, abdominal pain, or any other concerning signs or symptoms. Patient has a appointment with Urology next week. Related Data Home Medications Medication Instructions Recorded Confirmed atorvastatin 40 mg tablet 80 mg PO DAILY 09/13/23 01/10/24 Previous Rx's Medication Instructions Recorded torsemide 20 mg tablet 20 mg PO .5timesdaily #30 tabs 08/12/23 nitrofurantoin 100 mg PO Q12H 5 days #10 caps 01/28/24 monohydrate/macrocrystals 100 mg capsule (Macrobid) nitrofurantoin 100 mg PO Q12H 5 days #10 caps 01/28/24 monohydrate/macrocrystals 100 mg capsule (Macrobid) Allergies Allergy/AdvReac Type Severity Reaction Status Date / Time Penicillins [PENICILLINS] Allergy Severe LIKE Verified 01/28/24 14:30 GOING INTO SHOCK Review of Systems <Teo Michelle PA-C - Last Filed: 01/28/24 15:54> Review of Systems Narrative: GENERAL: Denies chills, fatigue, malaise, fever, sweats. HEENT: Denies sinus pain, ear pain, sore throat, difficulty swallowing, dizziness. RESPIRATORY: Denies dyspnea, cough, wheezing, hemoptysis, sputum. CARDIOVASCULAR: Denies chest pain, palpitations, orthopnea, edema, GASTROINTESTINAL: Denies nausea, vomiting, abdominal pain, diarrhea, constipation, melena. : Reports penile discharge, MUSCULOSKELETAL: denies weakness, joint pain, or bony pain SKIN: Denies rash, skin lesions, or other NEUROLOGIC: Denies weakness, headache, numbness, change in speech, confusion, seizures, incoordination. PSYCHIATRIC: No concerning psychosocial issues. 12 point review of systems is negative except for those stated above Patient History <Teo Michelle PA-C - Last Filed: 01/28/24 15:54> Medical History (Updated 01/28/24 @ 15:18 by Teo Michelle PA-C) Right inguinal hernia Yeast UTI Johnston catheter in place History of prostate cancer History of bladder stone Lower urinary tract symptoms PVD (peripheral vascular disease) Prostate cancer Surgical History (Updated 09/13/23 @ 16:18 by Rhett Yung MD) History of transurethral resection of prostate S/P hip replacement Family History Brother Hearing impairment Social History marital status: unmarried,single number of children: 0 household members: none Smoking Status: Never smoker alcohol intake: current caffeine: Yes Type(s) of exercise: none Smoking Status: Never smoker alcohol intake frequency: 3 or more drinks per day Alcohol type: wine Substance Use Type: does not use Exam <Teo Michelle PA-C - Last Filed: 01/28/24 15:54> Narrative Exam Narrative: GENERAL: Well-developed patient, in mild distress. HEAD: Atraumatic. Normocephalic. EYES: Pupils equal round and reactive. Extraocular motions intact. No scleral icterus. No injection or drainage. ENT: Nose without bleeding, purulent drainage. Throat without erythema, tonsillar hypertrophy or exudate. Airway patent. NECK: Trachea midline. Non tender EXTREMITIES: No edema or joint tenderness. NEURO: AOx3. SKIN: No rash or erythema of visible areas : Urinary catheter in place and stable. No evidence of any kind of white discharge Initial Vital Signs Initial Vital Signs: Vital Signs Temperature 98.0 F 01/28/24 14:28 Pulse Rate 98 H 01/28/24 14:28 Respiratory Rate 14 01/28/24 14:28 Blood Pressure 193/98 H 01/28/24 14:28 Pulse Oximetry 99 01/28/24 14:28 Oxygen Delivery Method Room Air 01/28/24 14:28 <Gwendolyn Toledo DO - Last Filed: 01/28/24 17:39> Initial Vital Signs Initial Vital Signs: Vital Signs Temperature 98.0 F 01/28/24 14:28 Pulse Rate 98 H 01/28/24 14:28 Respiratory Rate 14 01/28/24 14:28 Blood Pressure 193/98 H 01/28/24 14:28 Pulse Oximetry 99 01/28/24 14:28 Oxygen Delivery Method Room Air 01/28/24 14:28 Course <Teo Michelle PA-C - Last Filed: 01/28/24 15:54> Orders Ordered: ED Orders 01/28/24 14:52 Urine Culture Stat Urine Microscopic Stat Vital Signs Vital signs: Vital Signs - 8 hr 01/28/24 14:28 01/28/24 15:51 Temperature 98.0 F Pulse Rate 98 H 77 Respiratory Rate 14 18 Blood Pressure 193/98 H 179/99 H Pulse Oximetry 99 97 Oxygen Delivery Method Room Air Room Air <Gwendolyn Toledo DO - Last Filed: 01/28/24 17:39> Orders Ordered: ED Orders 01/28/24 14:52 Urine Culture Stat Urine Microscopic Stat Vital Signs Vital signs: Vital Signs - 8 hr 01/28/24 14:28 01/28/24 15:51 Temperature 98.0 F Pulse Rate 98 H 77 Respiratory Rate 14 18 Blood Pressure 193/98 H 179/99 H Pulse Oximetry 99 97 Oxygen Delivery Method Room Air Room Air MDM - Male Genitourinary <STEVEN Alexander Last Filed: 01/28/24 15:54> Lab Data Labs: Lab Results 01/28/24 Range/Units 14:52 Urine RBC 5-10/hpf H (0-5/HPF) Urine WBC >100/hpf H (0-5/HPF) Ur Squamous Epith Cells None seen (0-5/HPF) Urine Bacteria Moderate (10-30) H (None) Ur Culture Indicated? Specimen cultured Vol Urine Centrifuged 10ml (spun) Urine Dip Bedside Urine Glucose Negative Bedside Urine Bilirubin - Negative Bedside Urine Ketone - Negative Urine Specific [place] 1.015 Bedside Urine Occult Blood + Bedside Urine pH 6.0 Bedside Urine Protein - Negative Bedside Urine Urobilinogen - Negative Bedside Urine Nitrite - Negative Bedside Urine Leukocytes +++ 500 Esterase MDM Narrative Medical decision making narrative: ED course: This is a 81-year-old male presents emergency department due to be concerned of a white milky discharge that was coming from his urethra. Denies any pain. Urinary catheter in place and draining well. He was scheduled for catheter change in 13 days. On exam there was no evidence of any kind of milky discharge. No samples able to provided for any kind of testing. Urine was positive for leukocytes and will treat for possible UTI. CC: Penile discharge Complicating co-morbidities: Indwelling catheter Data collected from: Previous notes Medical records reviewed: Patient was last seen here about 6 months ago due to acute on chronic urinary retention. History of hypertension, dyslipidemia, gout, pelvic fracture. Takes torsemide daily. Differential considered, but not limited to: Gonorrhea, chlamydia, UTI Exam documented above, pertinent findings include: Urinary catheter in place and stable. No evidence of any kind of discharge surrounding the catheter. Lab Test results independently reviewed as above. Pertinent findings: UA was positive for leukocytes Imaging studies independently reviewed: None obtained Scores Used: None MIPS Elements: None Consultations: None Treatments: None Re-evaluations: None Discussion: Discussed plan with the patient was comfortable with the plan Diagnosis: UTI Disposition: see below, along with detailed discharge instructions that have been reviewed with patient as well as indications for ED re-evaluation and additional outpatient follow up <Gwendolyn Toledo, DO - Last Filed: 01/28/24 17:39> Lab Data Labs: Lab Results 01/28/24 Range/Units 14:52 Urine RBC 5-10/hpf H (0-5/HPF) Urine WBC >100/hpf H (0-5/HPF) Ur Squamous Epith Cells None seen (0-5/HPF) Urine Bacteria Moderate (10-30) H (None) Ur Culture Indicated? Specimen cultured Vol Urine Centrifuged 10ml (spun) Urine Dip Bedside Urine Glucose Negative Bedside Urine Bilirubin - Negative Bedside Urine Ketone - Negative Urine Specific [place] 1.015 Bedside Urine Occult Blood + Bedside Urine pH 6.0 Bedside Urine Protein - Negative Bedside Urine Urobilinogen - Negative Bedside Urine Nitrite - Negative Bedside Urine Leukocytes +++ 500 Esterase Discharge Plan Departure Patient Disposition: Home Clinical Impression: Acute UTI Instructions: DI for Urinary Tract Infection (UTI) Activity Restrictions/Additional Instructions: Thank you for coming to the [facility] Emergency Department today. As we discussed your urine showed evidence of possible UTI. Please take the antibiotics as prescribed. Please follow up with the urologist for your routine catheter exchange. Please return to the emergency department if you develop any fevers, nausea, vomiting, significant pain, or any other concerning signs or symptoms. I hope you feel better soon. Please follow up with your primary care provider within a week if your symptoms continue. If you do not have a primary care provider please contact the [facility] Resource line at [phone]. They will ask some questions about your medical history and help you get set up with a provider in the community. Prescriptions: New nitrofurantoin monohyd/m-cryst [Macrobid] 100 mg capsule 100 mg PO Q12H 5 Days Qty: 10 0RF Rx Instructions: must administer with a meal/food nitrofurantoin monohyd/m-cryst [Macrobid] 100 mg capsule 100 mg PO Q12H 5 Days Qty: 10 0RF Rx Instructions: must administer with a meal/food No Action torsemide 20 mg tablet 20 mg PO .5timesdaily Qty: 30 0RF atorvastatin 40 mg tablet 80 mg PO DAILY Referrals: Kraig Ramey MD [Primary Care Provider] - Stand Alone Forms: Patient Portal/API ED Sign-out <Gwendolyn Toledo DO - Last Filed: 01/28/24 17:39> Cosign ED Attending Corettaature Attestation: I was available for consultation.
--- NOTE | 2024-01-28 14:54 | PC.NURSE ---
Pt reports discharge around catheter site. In the ER pt states he no longer notes discharge; no discharge noted at catheter site. Urine yellow and slightly cloudy from catheter. Pt reports no pain.
--- NOTE | 2024-01-28 14:59 | PC.NURSE ---
Pt reports lower extremity swelling; improves with compression socks. Pt states he has bilateral coronary artery blockages in his lower extremities. Lower extremities 1+ edema; pedal pulses dopplerable.
[2024-01-28 15:01] LABS: Bacteria Urine Moderate (10-30); Culture Indicated Urine Specimen Cultured; RBC Urine 5-10/HPF (0-5/HPF); Squamous Epithelial Cell Urine None Seen (0-5/HPF); Urine Volume 10mL (spun); WBC Urine >100/HPF (0-5/HPF)
[2024-01-28 15:51] VITALS: BP 179/99; PULSE 77; RESP 18; O2SAT 97
== END 2024-01-28 15:56 | disposition home or self-care (01) ==
PROVIDERS: Emergency Provider Physician Assistant Medical; PCP Family Medicine
DX: N39.0 Urinary tract infection, site not specified (principal)
CPT/HCPCS: 81003; 81015; 87077; 87086; 87186; 99282

== ENCOUNTER → 2024-02-09 14:47 | Outpatient (CLI) | payer OTHER, SELFPAY ==
[2023-12-08 09:47] VITALS: BMI 21.4
== END ==
PROVIDERS: PCP Family Medicine; Visit Provider Urology
DX: N39.0 Urinary tract infection, site not specified (principal)
CPT/HCPCS: 87077; 87086; 87186

== ENCOUNTER 2024-02-13 15:52 | Observation (INO) | payer OTHER, SELFPAY ==
[2023-12-08 09:47] VITALS: BMI 21.4
[2024-02-13 16:13] VITALS: BP 186/93; PULSE 77; RESP 16; TEMP 36.3; O2SAT 96; BMI 22.8
[2024-02-13 18:47] VITALS: BP 182/96; PULSE 75; RESP 18; O2SAT 99
--- NOTE | 2024-02-13 19:14 | DI.RAD.S_ITS ---
PROCEDURE: XR FINGER LT MIN 2V INDICATIONS: swelling TECHNIQUE: AP hand, 2 views of the 4th finger(s) acquired. COMPARISON: None. FINDINGS: Bones: Moderate scattered degenerative changes, particularly at the 1st CMC, STT, and scattered interphalangeal joints. Periarticular lucencies are usually degenerative geodes, versus sequelae of prior erosion. No acute displaced fractures identified. Soft tissues: Soft tissue swelling of the 4th digit. IMPRESSION: No acute osseous abnormality associated with soft tissue swelling of the 4th digit. Moderate scattered degenerative findings are present. If there is high concern for further derangement, consider MRI evaluation. Dictated by: Livan Quarles M.D. on 02/13/2024 at 20:05 Approved by: Livan Quarles M.D. on 02/13/2024 at 20:07
--- NOTE | 2024-02-13 20:09 | ED.SKABFB ---
HPI - Skin/Abscess/Foreign Bdy General Chief complaint: Skin/Abscess/Foreign Body Stated complaint: L hand ring finger infection sent from [facility] Time Seen by Provider: 02/13/24 17:39 Source: patient Mode of arrival: Ambulatory History of Present Illness HPI narrative: 83-year-old male presents for evaluation left ring finger pain and swelling. Patient states that he thinks he may have gotten a sliver of glass or plant matter in his finger while he was working outside and removed it. Two days ago he noticed redness and swelling in his finger and went to the walk-in clinic. He was diagnosed with a paronychia and discharged on doxycycline. He has been taking the doxycycline as prescribed but his finger has become more painful and more swollen. He went back to the walk-in clinic today but was referred to the ER due to the amount of swelling. Related Data Home Medications Medication Instructions Recorded Confirmed atorvastatin 40 mg tablet 80 mg PO DAILY 09/13/23 02/13/24 torsemide 20 mg tablet 20 mg PO DAILY 02/13/24 02/13/24 Previous Rx's Medication Instructions Recorded doxycycline hyclate 100 mg capsule 100 mg PO BID #20 caps 02/11/24 ciprofloxacin HCl 500 mg tablet 500 mg PO BID #30 tabs 02/13/24 Allergies Allergy/AdvReac Type Severity Reaction Status Date / Time Penicillins [PENICILLINS] Allergy Severe LIKE Verified 02/13/24 22:26 GOING INTO SHOCK Review of Systems Review of Systems Narrative: Negative except as noted above Patient History Medical History Right inguinal hernia Yeast UTI Johnston catheter in place History of prostate cancer History of bladder stone Lower urinary tract symptoms PVD (peripheral vascular disease) Prostate cancer Surgical History History of bladder surgery History of transurethral resection of prostate S/P hip replacement Family History Brother Hearing impairment Social History marital status: unmarried,single number of children: 0 household members: none lives independently: Yes Smoking Status: Never smoker alcohol intake: current substance use type: does not use caffeine: Yes Type(s) of exercise: none Smoking Status: Never smoker alcohol intake frequency: 3 or more drinks per day Alcohol type: wine Substance Use Type: does not use Exam Initial Vital Signs Initial Vital Signs: Vital Signs Temperature 97.4 F L 02/13/24 16:13 Pulse Rate 77 02/13/24 16:13 Respiratory Rate 16 02/13/24 16:13 Blood Pressure 186/93 H 02/13/24 16:13 Pulse Oximetry 96 02/13/24 16:13 Oxygen Delivery Method Room Air 02/13/24 16:13 Const: Awake, alert, no acute distress, nontoxic appearing MSK: Sausage like swelling of left ring finger, decreased range of motion due to swelling, no flexor tendon tenderness Skin: Erythema and swelling left ring finger Neuro: AO x3, CN II-XII grossly intact, moves all extremities Course Orders Ordered: ED Orders 02/13/24 20:20 CBC Auto Diff [Complete Blood Count AUTO DIFF] Stat CMP [Comprehensive Metabolic Panel] Stat Acetaminophen (Acetaminophen 325 Mg Tablet) 650 mg PO Q6H PRN PRN Reason: Fever/Mild Pain (1-3) Hydrocodone Bitart/Acetaminophen (Hydrocodone/Acet 5/325 Tablet) 1 tab PO Q6HR PRN PRN Reason: Pain, Moderate (4-6) Ceftriaxone Sodium 1,000 mg/ (Sodium Chloride) 100 mls @ 200 mls/hr IV Q24H LAKSHMI Vancomycin HCl (Vancomycin) 1,000 mg in 200 mls @ 200 mls/hr IV Q24H LAKSHMI Lorazepam (Lorazepam 2 Mg/Ml Inj) 0.5 mg IV Q6HR PRN PRN Reason: Anxiety Vancomycin HCl (Vancomycin Per Pharmacy) 1 request MISC NOW PRN PRN Reason: getting vanco Discontinued Medications Diphtheria/Tetanus/Acell Pertussis (Tet,Diph,Pertuss(Acell),Vac/Pf 0.5 Ml Syringe) 0.5 ml IM .ONCE ONE Stop: 02/13/24 21:46 Last Admin: 02/13/24 21:54 Dose: 0.5 ml Documented By: NOREEN Ceftriaxone Sodium 2,000 mg/ (Sodium Chloride) 100 mls @ 200 mls/hr IV NOW ONE Stop: 02/13/24 20:42 Last Infusion: 02/13/24 21:56 Dose: Infused Documented By: Admin: 02/13/24 21:20 Dose: 200 mls/hr Documented By: ELAINE Vancomycin HCl/Dextrose (Vancomycin) 1,500 mg in 300 mls @ 200 mls/hr IV NOW ONE Stop: 02/13/24 22:29 Last Infusion: 02/14/24 00:07 Dose: Infused Documented By: Admin: 02/13/24 22:19 Dose: 200 mls/hr Documented By: BURTON Vital Signs Vital signs: Vital Signs - 8 hr 02/13/24 16:13 02/13/24 18:47 02/13/24 20:43 Temperature 97.4 F L 97.8 F Pulse Rate 77 75 72 Respiratory Rate 16 18 16 Blood Pressure 186/93 H 182/96 H 189/99 H Pulse Oximetry 96 99 96 Oxygen Delivery Method Room Air Room Air Room Air MDM - Skin/Abscess/Foreign Bdy Differential Diagnosis Differential diagnosis: Likely abscess of skin or subcutaneous tissue, viral exanthem and dermatophytosis Lab Data 02/13/24 20:20 02/13/24 20:20 Labs: Lab Results 02/13/24 Range/Units 20:20 WBC 6.0 (4.5-11.0) X10^3/uL RBC 4.02 L (4.5-5.9) X10^6/uL Hgb 13.7 (13.5-17.5) g/dL Hct 40.0 L (41-53) % MCV 99.3 (80-100) fL MCH 33.9 (26-34) PG MCHC 34.2 (30-36) % RDW 12.1 (11.6-14.8) % Plt Count 220 (150-400) X10^3/uL Neut % (Auto) 58.5 (50-75) % Lymph % (Auto) 26.3 (25-40) % [place] % (Auto) 13.3 (3-14) % Eos % (Auto) 1.2 L (2-4) % Baso % (Auto) 0.7 (0-2) % Neut # (Auto) 3500 (3532-6034) /uL Lymph # (Auto) 1600 (5410-2562) /uL [place] # (Auto) 800 (0-900) /uL Eos # (Auto) 100 (0-450) /uL Baso # (Auto) 0 (0-100) /uL Sodium 138 (137-145) mmol/L Potassium 3.6 (3.4-5.1) mmol/L Chloride 101 (98-107) mmol/L Carbon Dioxide 29 (22-32) mmol/L BUN 48 H (9-20) mg/dL Creatinine 1.17 (0.66-1.25) mg/dL Estimated GFR > 60 (>60) mL/min BUN/Creatinine Ratio 41.0 H (6-22) Glucose 114 H (80-110) mg/dL Calcium 9.7 (8.4-10.2) mg/dL Total Bilirubin 1.0 (0.2-1.3) mg/dL AST 34 (17-59) IU/L ALT 21 (<50) IU/L Alkaline Phosphatase 113 (38-126) U/L Total Protein 8.2 (6.3-8.2) g/dL Albumin 5.0 (3.5-5.0) g/dL Globulin 3.2 (1.7-4.1) g/dL Albumin/Globulin Ratio 1.6 (1.0-2.8) Imaging Data Chest x-ray: Radiologist's Impression: PROCEDURE: XR FINGER LT MIN 2V INDICATIONS: swelling TECHNIQUE: AP hand, 2 views of the 4th finger(s) acquired. COMPARISON: None. FINDINGS: Bones: Moderate scattered degenerative changes, particularly at the 1st CMC, STT, and scattered interphalangeal joints. Periarticular lucencies are usually degenerative geodes, versus sequelae of prior erosion. No acute displaced fractures identified. Soft tissues: Soft tissue swelling of the 4th digit. IMPRESSION: No acute osseous abnormality associated with soft tissue swelling of the 4th digit. Moderate scattered degenerative findings are present. If there is high concern for further derangement, consider MRI evaluation. Dictated by: Livan Quarles M.D. on 02/13/2024 at 20:05 Approved by: Livan Quarles M.D. on 02/13/2024 at 20:07 [facility] Narrative Medical decision making narrative: Rapidly worsening redness and swelling of left ring finger. There is sausage like swelling of the finger with extensive erythema extending into the dorsum of the hand, range of motion decreased due to swelling. No flexor tendon tenderness. Pictures of the wound were shared with on-call orthopedic surgeon Dr. Keller, who stated that as the finger appears it does not meet criteria for flexor tenosynovitis at this time, however patient needs to be on different antibiotics since the doxycycline did not control the infection, and if admitted he will follow up. Patient given vancomycin and Rocephin, plan to admit for further treatment. Discharge Plan Departure Patient Disposition: Admitted as Observation Clinical Impression: Cellulitis of finger Admit Date/Time: 02/13/24 21:30 Admit Provider: Minoo Gay
[2024-02-13 20:33] LABS: Add Manual Diff / Slide Review NO; Basophils Absolute Auto 0 /uL (0-100); Basophils Percent Auto 0.7 % (0-2); Eosinophils Absolute Auto 100 /uL (0-450); Eosinophils Percent Auto 1.2 % (2-4); Hemoglobin 13.7 g/dL (13.5-17.5); Lymphocytes Absolute Auto 1600 /uL (1100-4500); Lymphocytes Percent Auto 26.3 % (25-40); Mean Corpuscular HGB Conc 34.2 % (30-36); Mean Corpuscular Hemoglobin 33.9 PG (26-34); Mean Corpuscular Volume 99.3 fL (80-100); Monocytes Absolute Auto 800 /uL (0-900); Monocytes Percent Auto 13.3 % (3-14); Neutrophils Absolute Auto 3500 /uL (1500-7000); Neutrophils Percent Auto 58.5 % (50-75); Platelet Count 220 X10^3/uL (150-400); Red Blood Cell Count 4.02 X10^6/uL (4.5-5.9); Red Cell Distribution Width 12.1 % (11.6-14.8)
[2024-02-13 20:43] VITALS: BP 189/99; PULSE 72; RESP 16; TEMP 36.6; O2SAT 96
[2024-02-13 20:44] LABS: Alanine Aminotransferase 21 IU/L (<50); Albumin Globulin Ratio 1.6 (1.0-2.8); Alkaline Phosphatase 113 U/L (38-126); Aspartate Aminotransferase 34 IU/L (17-59); Blood Urea Nitrogen 48 mg/dL (9-20); Calcium 9.7 mg/dL (8.4-10.2); Carbon Dioxide 29 mmol/L (22-32); Chloride 101 mmol/L (98-107); Estimated Glomerular Filt Rate > 60 mL/min (>60); Globulin 3.2 g/dL (1.7-4.1); Glucose 114 mg/dL (80-110); HEMOLYSIS < 15 (0-50); Potassium 3.6 mmol/L (3.4-5.1); Sodium 138 mmol/L (137-145); Total Protein 8.2 g/dL (6.3-8.2)
[2024-02-13] MEDS: cefTRIAXone 2,000 MG in SODIUM CHLORIDE 0.9% 100 ML 200 MG IV (21:20)
[2024-02-13] MEDS: TET,DIPH,PERTUSS(ACELL),VAC/PF 0.5 ML SYRINGE IM (21:54)
[2024-02-13] MEDS: VANCOMYCIN 1,500 MG/300 ML PIGGYBACK 200 MG IV (22:19)
[2024-02-13 22:25] VITALS: BMI 21.9
--- NOTE | 2024-02-13 23:36 | PC.NURSE ---
Addendum entered by Carmen Coel R.N. 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 Patient is AxOx4; states that pain in his left hand is 4/10, declines pain medication intervention at this time. States that otherwise he feels fine. Patient arrived with indwelling catheter, patent and draining. BP is elevated, MD notified. IV abx infusing as ordered. Patient oriented to call-light and calls appropriately. Plan of care ongoing.
[2024-02-14 00:28] VITALS: BP 183/90; PULSE 84; RESP 17; TEMP 36.3; O2SAT 97
[2024-02-14 05:56] LABS: Add Manual Diff / Slide Review NO; Basophils Absolute Auto 0 /uL (0-100); Basophils Percent Auto 0.9 % (0-2); Eosinophils Absolute Auto 100 /uL (0-450); Eosinophils Percent Auto 1.8 % (2-4); Hematocrit 37.8 % (41-53); Hemoglobin 12.9 g/dL (13.5-17.5); Lymphocytes Absolute Auto 1100 /uL (1100-4500); Mean Corpuscular HGB Conc 34.1 % (30-36); Mean Corpuscular Hemoglobin 33.6 PG (26-34); Mean Corpuscular Volume 98.6 fL (80-100); Monocytes Absolute Auto 800 /uL (0-900); Monocytes Percent Auto 15.1 % (3-14); Neutrophils Absolute Auto 3100 /uL (1500-7000); Neutrophils Percent Auto 60.2 % (50-75); Platelet Count 194 X10^3/uL (150-400); Red Blood Cell Count 3.83 X10^6/uL (4.5-5.9); White Blood Cell Count 5.2 X10^3/uL (4.5-11.0)
[2024-02-14 06:06] LABS: BUN Creatinine Ratio 43.9 (6-22); Blood Urea Nitrogen 43 mg/dL (9-20); Calcium 9.2 mg/dL (8.4-10.2); Carbon Dioxide 28 mmol/L (22-32); Chloride 104 mmol/L (98-107); Estimated Glomerular Filt Rate > 60 mL/min (>60); Glucose 103 mg/dL (80-110); HEMOLYSIS < 15 (0-50); Potassium 3.2 mmol/L (3.4-5.1); Sodium 140 mmol/L (137-145)
[2024-02-14 06:31] VITALS: BP 161/91; PULSE 72; RESP 19; TEMP 36.4; O2SAT 98
[2024-02-14] MEDS: POTASSIUM CHLORIDE 20 MEQ TAB 40 MEQ PO ×2 (08:25→12:53)
[2024-02-14 08:49] VITALS: BP 179/91; PULSE 69; RESP 18; TEMP 36.2; O2SAT 96
[2024-02-14] MEDS: VANCOMYCIN 750 MG/150 ML PIGGYBACK 150 MG IV ×2 (09:47→22:09)
--- NOTE | 2024-02-14 13:00 | CM.DANOTE ---
DCP Assessment note Pt is a 83yo M here following cellulitis in his left ring finger. Pt went to the walk in clinic and was directed to the ED. Has surg for hernia(?) scheduled with Jennifer Lewis on 02.15.24 PCP Karoline Payer [employer] Medicare and self pay OBJECT ORIENTED DEVELOPER reviewed EMR. No H&P as of 1299. Per RN, no I&D planned as of now, but unsure what the overall plan for pt is. OBJECT ORIENTED DEVELOPER met with pt in room. Pt sitting up in chair, has been walking around in room, and was eating lunch. Pt lives alone in [place]. Reports is indep with IADLs at baseline. Brother Rhett is POA ([phone]), lives in [place], pt asked brother not be notified unless I was in a coma or something due to brother having own family concerns and pt not wanting to worry him. Pt worried about his surg with Dr. Rodriguez that was scheduled for tomorrow. Pt reports Dr. Gay said she would communicate to Dr. Rodriguez that pt was admitted here. Pt reports friend/neighbor Fouzia is bringing some stuff for home for him and either her or another neighbor could be his ride home. Pt denies other needs at this time. OBJECT ORIENTED DEVELOPER briefly reviewed options for IV abx at discharge if needed, but pt is hopeful for PO Abx. OBJECT ORIENTED DEVELOPER brought pt senior resources booklet for future resource needs. Plan: home when stable. Pt denies needs. Confirm transport at [facility]. CM team will follow as needed. STANISLAV Burns Discharge Planning/Care Management CM Discharge Assessment Start: 02/14/24 12:59 Freq: Status: Active Protocol: Document 02/14/24 12:59 (Rec: 02/14/24 13:00 [id number]) Discharge Planning Assessment Assigned Lab Assistant STANISLAV Pratt DPOA/Assigned Designee Name brother Delaney Contact Information [phone] Advance Directives? Yes: DPOA, Living Will, HC Directive Advance Directives on File Yes: states full code History Provided By Patient Prior Living Arrangements House Household Members none Type of transporation used prior to Drives own vehicle admit Independent with ADL's Yes Is patient alert and oriented? Yes Barriers to Discharge No Discharge Plan Home Transportation Arrangement friend in [facility] Whiteboard Updated in Patient Room with Yes name and ext. # of Lab Assistant Review Status In Process Please Provide Date Initial DC 02/14/24 Assessment Was Performed Next Review Type Continued Stay Review
[2024-02-14 15:29] VITALS: BP 116/71; PULSE 75; RESP 18; TEMP 35.9; O2SAT 95
--- NOTE | 2024-02-14 17:56 | PM.HP.1 ---
History of Present Illness History of Present Illness Date Patient Seen: 02/14/24 Time Patient Seen: 08:30 Chief complaint: L hand ring finger infection sent from [facility] Narrative: This is a very pleasant 83 to a male who is seen in [facility] for Dr. Kendall. He is under the primary care of Dr. Kendall. Was admitted for cellulitis with possible evolving abscess of his left ring finger. He was seen in the walk-in clinic a believe on the 10 of February and then on the . They gave him doxycycline. There is question of whether he got a thorn. The infection progressed and he went back on the date of admission on the and they sent him to the ER. In the ER he was found to have marked swelling of the finger with erythema marked tenderness and concern for evolving abscess and so he was admitted to the hospital for further treatment and management. Dr. Bao VILLALOBOS consulted in the ER and agreed to consult in the hospital. He is the orthopedist on-call. The patient is unsure of what happened possibly if there was a thorn that he got. The patient is not having any other symptoms. He denies any fever or rashes or systemic symptoms. He has otherwise been in his usual state of health. He has never had similar infections. Past medical history: 1. Hyperlipidemia 2. Right inguinal hernia he is due to Have surgery in [address] Rodriguez 3. prostate cancer 4. History of large bladder stone 5. Degenerative joint disease 6. Peripheral vascular disease 7. Urinary retention status post transurethral prostate resection. Patient with indwelling catheter Allergic to penicillin Past surgical history: Right hip replaced TURP Family history: Brother with hearing abnormalities No other known family history Social history: Patient lives alone in [facility]. He is single and does not have children. Health related behavior: He does not smoke and never has. He does drink alcohol on a regular basis. He is fairly active [place] review of systems is negative Other than HPI PFSH Medical History Right inguinal hernia Yeast UTI Johnston catheter in place History of prostate cancer History of bladder stone Lower urinary tract symptoms PVD (peripheral vascular disease) Prostate cancer Surgical History History of bladder surgery History of transurethral resection of prostate S/P hip replacement Family History Brother Hearing impairment Social History marital status: unmarried,single number of children: 0 household members: none lives independently: Yes Smoking Status: Never smoker alcohol intake: current substance use type: does not use caffeine: Yes Type(s) of exercise: none Meds Home Medications and Allergies Home Medications Medication Instructions Recorded Confirmed Type atorvastatin 40 mg tablet 80 mg PO DAILY 09/13/23 02/13/24 History doxycycline hyclate 100 mg capsule 100 mg PO BID #20 caps 02/11/24 02/13/24 Rx ciprofloxacin HCl 500 mg tablet 500 mg PO BID #30 tabs 02/13/24 02/13/24 Rx torsemide 20 mg tablet 20 mg PO DAILY 02/13/24 02/13/24 History Allergies Allergy/AdvReac Type Severity Reaction Status Date / Time Penicillins [PENICILLINS] Allergy Severe LIKE Verified 02/13/24 22:26 GOING INTO SHOCK Exam Vital Signs (past 8 hours): - 02/14/24 15:29 Temperature 96.6 F L Pulse Rate 75 Respiratory Rate 18 Blood Pressure 116/71 Pulse Oximetry 95 Oxygen Flow Rate 0 Oxygen Delivery Method Room Air Oxygen Flow Rate 0 Narrative Exam Narrative: Afebrile vital signs are stable HEENT is unremarkable Neck: Supple without adenopathy or thyromegaly Lungs are clear to auscultation without wheezes rhonchi or crackles Cor: Regular rate and rhythm without a murmur, distant S1-S2 Abdomen: Positive bowel sounds, soft, nontender, nondistended, no hepatosplenomegaly Extremities: 1+ pitting edema ankle bilateral; left ring finger with significant swelling and erythema. Tenderness over the flexor surface. But patient states that the erythema and swelling as well as tenderness or markedly improved. He is able to flex about 50% both the DIP and the PIP and MCP.. Otherwise neurovascularly intact. No fluctuance Pulses intact Neurologic exam nonfocal Objective Labs 02/14/24 05:12 02/14/24 05:12 Labs: Laboratory Results - last 24 hr 02/13/24 02/14/24 20:20 05:12 WBC 6.0 5.2 RBC 4.02 L 3.83 L Hgb 13.7 12.9 L Hct 40.0 L 37.8 L MCV 99.3 98.6 MCH 33.9 33.6 MCHC 34.2 34.1 RDW 12.1 12.0 Plt Count 220 194 Neut % (Auto) 58.5 60.2 Lymph % (Auto) 26.3 22.0 L [place] % (Auto) 13.3 15.1 H Eos % (Auto) 1.2 L 1.8 L Baso % (Auto) 0.7 0.9 Neut # (Auto) 3500 3100 Lymph # (Auto) 1600 1100 [place] # (Auto) 800 800 Eos # (Auto) 100 100 Baso # (Auto) 0 0 Sodium 138 140 Potassium 3.6 3.2 L Chloride 101 104 Carbon Dioxide 29 28 BUN 48 H 43 H Creatinine 1.17 0.98 Estimated GFR > 60 > 60 BUN/Creatinine Ratio 41.0 H 43.9 H Glucose 114 H 103 Calcium 9.7 9.2 Total Bilirubin 1.0 AST 34 ALT 21 Alkaline Phosphatase 113 Total Protein 8.2 Albumin 5.0 Globulin 3.2 Albumin/Globulin Ratio 1.6 Assessment & Plan Assessment & Plan narrative: 83-year-old male admitted with cellulitis and questionable flexor tenosynovitis of the left ring finger improved with IV antibiotics Assessment 1. Cellulitis improved with IV Rocephin and vancomycin. We will continue the same. Dr. Marcano was consulted last night from the ER. We will follow along with him. We will repeat CBC in a.m.. Assessment 2. Hypokalemia Plan replaced by pharmacy. Recheck in a.m. Assessment 3. Indwelling catheter without current concerns Plan: Will continue Assessment 4. Peripheral edema Plan will continue outpatient torsemide Assessment 5. Hyperlipidemia Plan: Continue with same atorvastatin Assessment 6. DVT prophylaxis Plan: Will put on Lovenox. Assessment 7. Elevated Blood pressure in the ER last night but now blood pressures are normal. Will continue to monitor and trend blood pressures Code status full code 76 minute spent with patient discussing with physician and nursing and reviewing chart and meeting with patient and formulating a plan and documentation
[2024-02-14 20:13] VITALS: BP 156/74; PULSE 69; RESP 19; TEMP 36.3; O2SAT 94
[2024-02-14] MEDS: cefTRIAXone 1,000 MG in SODIUM CHLORIDE 0.9% 100 ML 200 MG IV (21:01)
[2024-02-15 00:07] VITALS: BP 150/62; PULSE 64; RESP 18; TEMP 36.6; O2SAT 94
[2024-02-15 05:53] LABS: Add Manual Diff / Slide Review NO; Basophils Absolute Auto 100 /uL (0-100); Basophils Percent Auto 1.3 % (0-2); Eosinophils Absolute Auto 100 /uL (0-450); Eosinophils Percent Auto 2.6 % (2-4); Hemoglobin 12.7 g/dL (13.5-17.5); Lymphocytes Absolute Auto 1300 /uL (1100-4500); Lymphocytes Percent Auto 26.6 % (25-40); Mean Corpuscular HGB Conc 34.3 % (30-36); Mean Corpuscular Hemoglobin 34.4 PG (26-34); Mean Corpuscular Volume 100.3 fL (80-100); Monocytes Absolute Auto 800 /uL (0-900); Monocytes Percent Auto 15.8 % (3-14); Neutrophils Absolute Auto 2600 /uL (1500-7000); Neutrophils Percent Auto 53.7 % (50-75); Platelet Count 197 X10^3/uL (150-400); Red Blood Cell Count 3.69 X10^6/uL (4.5-5.9); Red Cell Distribution Width 12.4 % (11.6-14.8); White Blood Cell Count 4.9 X10^3/uL (4.5-11.0)
[2024-02-15 06:04] LABS: BUN Creatinine Ratio 38.4 (6-22); Blood Urea Nitrogen 33 mg/dL (9-20); Calcium 9.4 mg/dL (8.4-10.2); Carbon Dioxide 26 mmol/L (22-32); Chloride 111 mmol/L (98-107); Estimated Glomerular Filt Rate > 60 mL/min (>60); Glucose 118 mg/dL (80-110); HEMOLYSIS < 15 (0-50); Sodium 141 mmol/L (137-145)
[2024-02-15] MEDS: VANCOMYCIN TROUGH 1 REQUEST MISC (09:37)
[2024-02-15] MEDS: ATORVASTATIN 20 MG TABLET 80 MG PO (09:37)
[2024-02-15] MEDS: TORSEMIDE 10 MG TABLET 20 MG PO (09:37)
[2024-02-15] MEDS: ENOXAPARIN 40 MG/0.4 ML SYRINGE SUBCUT (09:37)
--- NOTE | 2024-02-15 09:45 | PM.CN ---
History of Present Illness Consult details Date Patient Seen: 02/15/24 Time Patient Seen: 09:45 Chief complaint: L hand ring finger infection sent from [facility] Reason for consult: concern for flexor tenosynovitis Narrative: 83 yo man was preparing for upcoming hernia repair by doing manual labor in his yard. He got what he thought was a wood sliver in the dorsum of his left ring finger and assumed it would eventually spit out on its own. However, it became severely swollen and painful, and he presented to the [facility] at and was given oral antibiotics. He returned a couple days later for a recheck and the finger was more swollen, with swelling and erythema tracking in the hand itself. He was sent from the [facility] to the ED, started on IV antibiotics, and admitted for observation by the hospitalist service. Dr Keller was consulted to evaluate for possible need for surgical intervention. On my visit this morning, pt has just finished breakfast. He says he has been surprised and confused by the recent course of events; he had not planned on being admitted to the hospital when he went to the [facility] last night. He tells me that his finger is currently much less swollen and painful than it was even just last night. Meds Home Medications and Allergies Home Medications Medication Instructions Recorded Confirmed Type atorvastatin 40 mg tablet 80 mg PO DAILY 09/13/23 02/13/24 History doxycycline hyclate 100 mg capsule 100 mg PO BID #20 caps 02/11/24 02/13/24 Rx ciprofloxacin HCl 500 mg tablet 500 mg PO BID #30 tabs 02/13/24 02/13/24 Rx torsemide 20 mg tablet 20 mg PO DAILY 02/13/24 02/13/24 History Allergies Allergy/AdvReac Type Severity Reaction Status Date / Time Penicillins [PENICILLINS] Allergy Severe LIKE Verified 02/13/24 22:26 GOING INTO SHOCK Review of Systems Review of Systems ROS: Yes All systems reviewed with the patient and are negative except as otherwise documented Gastrointestinal Comments: Scheduled for repair of a hernia of some kind. Genitourinary Comments: Has an indwelling urinary catheter. Exam Vital Signs (past 8 hours): Oxygen Delivery Method Room Air Oxygen Flow Rate 0 Narrative Exam Narrative: Left ring finger is minimally swollen and erythematous; erythema does not extend past the PIP joint dorsally or past the DIP joint on the palmar surface. Pt is able to flex and extend without difficulty at the MCP, PIP, and DIP joints. Minimal pain to palpation of the finger, but only to the PIP joint. Objective Labs 02/15/24 05:10 02/15/24 05:10 Labs: Laboratory Results - last 24 hr 02/15/24 05:10 WBC 4.9 RBC 3.69 L Hgb 12.7 L Hct 37.0 L MCV 100.3 H MCH 34.4 H MCHC 34.3 RDW 12.4 Plt Count 197 Neut % (Auto) 53.7 Lymph % (Auto) 26.6 [place] % (Auto) 15.8 H Eos % (Auto) 2.6 Baso % (Auto) 1.3 Neut # (Auto) 2600 Lymph # (Auto) 1300 [place] # (Auto) 800 Eos # (Auto) 100 Baso # (Auto) 100 Sodium 141 Potassium 4.0 Chloride 111 H Carbon Dioxide 26 BUN 33 H Creatinine 0.86 Estimated GFR > 60 BUN/Creatinine Ratio 38.4 H Glucose 118 H Calcium 9.4 PFSH Medical History Right inguinal hernia Yeast UTI Johnston catheter in place History of prostate cancer History of bladder stone Lower urinary tract symptoms PVD (peripheral vascular disease) Prostate cancer Surgical History History of bladder surgery History of transurethral resection of prostate S/P hip replacement Family History Brother Hearing impairment Social History marital status: unmarried,single number of children: 0 household members: none lives independently: Yes Tobacco & Substance Use Smoking Status: Never smoker alcohol intake: current substance use type: does not use Diet and Exercise caffeine: Yes Type(s) of exercise: none Assessment & Plan Assessment and plan (1) Cellulitis of finger: Status: Acute Plan: Cellulitis seems to be responding to rocephin and vanco. No indication of flexor tenosynovitis. D/w Dr Keller. Please reconsult orthopedic surgery as necessary.
[2024-02-15 10:15] VITALS: BP 158/93; PULSE 83; RESP 16; TEMP 36.4; O2SAT 96
[2024-02-15 10:17] LABS: Vancomycin Trough 14.7 ug/mL (10-20)
[2024-02-15] MEDS: VANCOMYCIN 750 MG/150 ML PIGGYBACK 150 MG IV ×2 (10:38→22:20)
[2024-02-15 12:00] VITALS: BP 128/67; PULSE 80; RESP 16; TEMP 36.4; O2SAT 97
[2024-02-15 18:00] VITALS: BP 147/78; PULSE 74; RESP 15; TEMP 36.9; O2SAT 98
[2024-02-15 20:12] VITALS: BP 150/74; PULSE 68; RESP 19; TEMP 36.5; O2SAT 97
[2024-02-15] MEDS: cefTRIAXone 1,000 MG in SODIUM CHLORIDE 0.9% 100 ML 200 MG IV (21:23)
[2024-02-16 07:00] VITALS: BP 153/83; PULSE 55; RESP 19; TEMP 36.3; O2SAT 97
[2024-02-16] MEDS: TORSEMIDE 10 MG TABLET 20 MG PO (08:53)
[2024-02-16] MEDS: ATORVASTATIN 20 MG TABLET 80 MG PO (08:53)
[2024-02-16] MEDS: ENOXAPARIN 40 MG/0.4 ML SYRINGE SUBCUT (08:53)
--- NOTE | 2024-02-16 14:38 | CM.DPC ---
DCP Cont. Reviewed EMR and team rounds for status updates. Their has been no documentation from the provider for 48-hours, CM is unsure what the plan is for discharge. Will continue to monitor and assist with eventual d/c plan and needs.
[2024-02-16] MEDS: VANCOMYCIN 750 MG/150 ML PIGGYBACK 150 MG IV ×2 (14:57→21:19)
[2024-02-16 16:07] VITALS: BP 154/92; PULSE 86; RESP 18; TEMP 36.4; O2SAT 96
--- NOTE | 2024-02-16 16:41 | PM.PN.1 ---
Subjective Subjective Date Patient Seen: 02/16/24 Time Patient Seen: 16:42 Interval history: CCL finger cellulitis Feeling progressively better the finger is decreasing in size and is starting to have increased range of motion Planning one more day of abx then home Exam Vital Signs (past 8 hours): - 02/16/24 16:07 Temperature 97.6 F Pulse Rate 86 Respiratory Rate 18 Blood Pressure 154/92 H Pulse Oximetry 96 Oxygen Flow Rate 0 Oxygen Delivery Method Room Air Oxygen Flow Rate 0 Narrative Exam Narrative: cheerful alert sitting in hospital bed Resp Other: moving air well, on room air, grossly clear to auscultation bilaterally Cardio Other: regular rate, S1/S2, no pedal edema (!) GI Other: soft nontender active bowel sounds Other: maynard in place with clamp no bag Neuro Other: alert awake oriented moving all limbs Extrem Other: L ring finger with fading erythema and edema - able to flex about 80% and extend fully, wound site from splinter looks to be healing well. Objective Labs 02/15/24 05:10 02/15/24 05:10 PFSH Medical History Right inguinal hernia Yeast UTI Maynard catheter in place History of prostate cancer History of bladder stone Lower urinary tract symptoms PVD (peripheral vascular disease) Prostate cancer Surgical History History of bladder surgery History of transurethral resection of prostate S/P hip replacement Family History Brother Hearing impairment Social History marital status: unmarried,single number of children: 0 household members: none lives independently: Yes Smoking Status: Never smoker alcohol intake: current substance use type: does not use caffeine: Yes Type(s) of exercise: none Assessment & Plan Assessment & Plan narrative: 83-year-old male admitted with cellulitis and questionable flexor tenosynovitis of the left ring finger improved with IV antibiotics #Cellulitis of L ring finger Improved with IV Rocephin and vancomycin still not resolved will see how it looks tomorrow CBC stable #Hypokalemia stable, encourage nutrition #Urinary retention #Indwelling catheter without current concerns Sees urology as outpatient, continue #Peripheral edema Really quite improved here - torsemide prn #Hyperlipidemia Stable continue home atorvastatin Dispo: likely home tomorrow PCP: Karoline DVT prophylaxis: Lovenoleif Code: full Code status full code
[2024-02-16] MEDS: cefTRIAXone 1,000 MG in SODIUM CHLORIDE 0.9% 100 ML 200 MG IV (20:35)
[2024-02-17] VITALS: BP 142/76; PULSE 66; RESP 16; TEMP 36.3; O2SAT 97
[2024-02-17 06:00] VITALS: BP 145/81; PULSE 64; RESP 18; TEMP 36.2; O2SAT 97
[2024-02-17 08:00] VITALS: BP 159/82; PULSE 78; RESP 16; TEMP 36.3; O2SAT 98
[2024-02-17] MEDS: TORSEMIDE 10 MG TABLET 20 MG PO (09:48)
[2024-02-17] MEDS: ENOXAPARIN 40 MG/0.4 ML SYRINGE SUBCUT (09:49)
[2024-02-17] MEDS: ATORVASTATIN 20 MG TABLET 80 MG PO (09:49)
[2024-02-17] MEDS: VANCOMYCIN 750 MG/150 ML PIGGYBACK 150 MG IV (10:07)
--- NOTE | 2024-02-17 11:51 | CM.DPC ---
DCP Cont. Reviewed EMR and team rounds for status updates. Pt has been medically cleared for d/c home today. Met with pt at bedside to clarify if he was interested in Home Health, he was not. Pt reiterated that he is very independent, and will drive himself back home. He had driven himself here to the hospital when he was initially admitted. No further DCP needs indicated at this time.
--- NOTE | 2024-02-17 12:13 | P.DS_ITS ---
History of Present Illness History of Present Illness Date Patient Seen: 02/17/24 Time Patient Seen: 09:30 Chief complaint: L hand ring finger infection sent from [facility] Narrative: CC: L ring finger infection Fuinger feeling better today - mostly recovered still some faint erythema and ROM impairment but overall feels good ready to go home. will dc on outpt clindamycin script then f/up with my office next week. Discharge Providers Provider Date of admission: 02/13/24 21:30 Discharge Date: 02/17/24 Primary care physician: Kraig Ramey MD Consults: 02/14/24 17:47 Consult to Physician Routine Comment: Consulting Provider: Yoan Keller Reason for consultation: infected finger Has provider been notified: Yes Discharge provider: Kraig Ramey MD Summary Hospital Course Discharge Diagnosis: #Cellulitis of L ring finger #Hypokalemia #Urinary retention #Indwelling catheter without current concerns #Peripheral edema #Hyperlipidemia Hospital Course: Admitted for IV antibiotics which improved his condition markedly over admission. Previous skin infections have gotten much worse so he is happy this has resolved. Planning to go home to f/up as outpt. Status at Discharge Cognitive/behavioral status at discharge: oriented and at baseline, oriented Functional status at discharge: independent ambulation Overall status at discharge: patient is back to baseline Exam Vital Signs (past 8 hours): - 02/17/24 06:00 02/17/24 08:00 Temperature 97.1 F L 97.3 F L Pulse Rate 64 78 Respiratory Rate 18 16 Blood Pressure 145/81 H 159/82 H Pulse Oximetry 97 98 Oxygen Flow Rate 0 Oxygen Delivery Method Room Air Oxygen Flow Rate 0 Narrative Exam Narrative: cheerful elder laying in bed Const Other: too thin , well developed HENMT Other: intact mustache, atraumatic Resp Other: moving air well, clear to auscultation bilaterally Cardio Other: regular rate, minimal pedal edema GI Other: soft nontender active bowel sounds Other: maynard in place with clamp no bag Neuro Other: alert oriented conversant Extrem Other: L ring finger with fading distal erythema, able to extend fully and flex to about 90% of full flexion. good capillary refill noted, good strength, Objective Labs 02/15/24 05:10 02/15/24 05:10 [facility] Medical History Right inguinal hernia Yeast UTI Maynard catheter in place History of prostate cancer History of bladder stone Lower urinary tract symptoms PVD (peripheral vascular disease) Prostate cancer Surgical History History of bladder surgery History of transurethral resection of prostate S/P hip replacement Family History Brother Hearing impairment Social History marital status: unmarried,single number of children: 0 household members: none lives independently: Yes Smoking Status: Never smoker alcohol intake: current substance use type: does not use caffeine: Yes Type(s) of exercise: none Discharge Assessment & Plan Assessment and Plan Assessment: 83-year-old male admitted with cellulitis and possible flexor tenosynovitis of the left ring finger failed outpatient treatment with doxycycline and bactrim #Cellulitis of L ring finger Improved with IV Rocephin and vancomycin after multiple days ready to go home will dc on clindamycin given prior meds tried and allergies to PCNs #Hypokalemia stable, encourage nutrition #Urinary retention #Indwelling catheter without current concerns Sees urology as outpatient, continue #Peripheral edema Really quite improved here - torsemide prn #Hyperlipidemia Stable continue home atorvastatin Dispo: home to f/up as outpt PCP: Karoline DVT prophylaxis: Lovenox Code: full Code status full code Discharge Plan Discharge Plan Patient Disposition: Home Discharge orders & Medications Prescriptions: New clindamycin HCl 300 mg capsule 300 mg PO TID Qty: 15 0RF Continued ciprofloxacin HCl 500 mg tablet 500 mg PO BID Qty: 30 0RF torsemide 20 mg tablet 20 mg PO DAILY atorvastatin 40 mg tablet 80 mg PO DAILY Discontinued doxycycline hyclate 100 mg capsule 100 mg PO BID Qty: 20 0RF Follow up/Referrals: Kraig Ramey MD [Primary Care Provider] - Visit Report/Discharge Packet Stand Alone Forms: Patient Portal/API, Stroke Signs & Symptoms Discharge Data Primary Care Provider: Kraig Ramey Attending Provider: Kraig Ramey Admit Date/Time: 02/13/24 21:30
== END 2024-02-17 12:40 | disposition home or self-care (01) ==
LOC: ED 21:24 → AC 21:31
PROVIDERS: Admitting Provider Family Medicine; Emergency Provider Emergency Medicine; PCP Family Medicine; Referring Provider Emergency Medicine; Visit Provider Family Medicine
DX: L03.012 Cellulitis of left finger (principal); R33.9 Retention of urine, unspecified; E87.6 Hypokalemia
CPT/HCPCS: 36415; 36592; 73140; 80048; 80053; 80202; 85025; 90471; 96365; 96366; 96367; 96368; 96372; 99284; G0378; 90715; J0696; J1650

== ENCOUNTER 2024-03-06 00:08 | Emergency (ER) | payer OTHER, SELFPAY ==
[2024-03-06 00:19] VITALS: BP 165/87; PULSE 69; RESP 18; TEMP 36.4; O2SAT 97; BMI 22.7
--- NOTE | 2024-03-06 00:35 | ED.SKABFB ---
HPI - Skin/Abscess/Foreign Bdy General Chief complaint: Skin/Abscess/Foreign Body Stated complaint: rt arm infection bleeding Time Seen by Provider: 03/06/24 00:09 Source: patient Mode of arrival: Ambulatory History of Present Illness HPI narrative: 83-year-old male presents for an abnormal finding on his right forearm. He states that he went to bed in his usual state of health and woke up with bleeding from his right forearm. He was concerned that he may have a skin infection. Related Data Home Medications Medication Instructions Recorded Confirmed atorvastatin 40 mg tablet 80 mg PO DAILY 09/13/23 02/13/24 torsemide 20 mg tablet 20 mg PO DAILY 02/13/24 02/13/24 Previous Rx's Medication Instructions Recorded ciprofloxacin HCl 500 mg tablet 500 mg PO BID #30 tabs 02/13/24 clindamycin HCl 300 mg capsule 300 mg PO TID #15 caps 02/17/24 Allergies Allergy/AdvReac Type Severity Reaction Status Date / Time Penicillins [PENICILLINS] Allergy Severe LIKE Verified 02/13/24 22:26 GOING INTO SHOCK Patient History Medical History Right inguinal hernia Yeast UTI Johnston catheter in place History of prostate cancer History of bladder stone Lower urinary tract symptoms PVD (peripheral vascular disease) Prostate cancer Surgical History History of bladder surgery History of transurethral resection of prostate S/P hip replacement Family History Brother Hearing impairment Social History marital status: unmarried,single number of children: 0 household members: none lives independently: Yes Smoking Status: Never smoker alcohol intake: current substance use type: does not use caffeine: Yes Type(s) of exercise: none Smoking Status: Never smoker alcohol intake frequency: 3 or more drinks per day Alcohol type: wine Substance Use Type: does not use Exam Initial Vital Signs Initial Vital Signs: Vital Signs Temperature 97.6 F 03/06/24 00:19 Pulse Rate 69 03/06/24 00:19 Respiratory Rate 18 03/06/24 00:19 Blood Pressure 165/87 H 05/14/24 00:19 Pulse Oximetry 97 03/06/24 00:19 Oxygen Delivery Method Room Air 03/06/24 00:19 Const: Awake, alert, no acute distress, nontoxic appearing MSK: Atraumatic, full range of motion, pulses equal Skin: 4 cm curved skin tear right forearm, no active bleeding Neuro: AO x3, CN II-XII grossly intact, moves all extremities Course Vital Signs Vital signs: Vital Signs - 8 hr 03/06/24 00:19 Temperature 97.6 F Pulse Rate 69 Respiratory Rate 18 Blood Pressure 165/87 H Pulse Oximetry 97 Oxygen Delivery Method Room Air MDM - Skin/Abscess/Foreign Bdy MDM Narrative Medical decision making narrative: Superficial skin tear on right forearm, uncertain how patient obtained this skin tear, however there was no signs of active bleeding or infection. Wound irrigated by nursing staff and approximated with Steri-Strips. A clean bandage applied. Discharge Plan Departure Patient Disposition: Home Clinical Impression: Skin tear of forearm without complication Qualifiers: Encounter type: initial encounter Laterality: right Qualified Code(s): S51.811A - Laceration without foreign body of right forearm, initial encounter Instructions: DI for Avulsion Laceration (Not Requiring Sutures) Activity Restrictions/Additional Instructions: Keep your wound clean and dry. Change your dressing daily. Follow up as needed with your primary care doctor Prescriptions: No Action ciprofloxacin HCl 500 mg tablet 500 mg PO BID Qty: 30 0RF torsemide 20 mg tablet 20 mg PO DAILY clindamycin HCl 300 mg capsule 300 mg PO TID Qty: 15 0RF atorvastatin 40 mg tablet 80 mg PO DAILY Referrals: Kraig Ramey MD [Primary Care Provider] - Stand Alone Forms: Patient Portal/API
== END 2024-03-06 01:10 | disposition home or self-care (01) ==
PROVIDERS: Emergency Provider Emergency Medicine; PCP Family Medicine
DX: S51.811A Laceration without foreign body of right forearm, initial encounter (principal); X58.XXXA Exposure to other specified factors, initial encounter
CPT/HCPCS: 99281; 99282

== ENCOUNTER 2024-03-07 13:18 | Day surgery (SDC) | payer OTHER, SELFPAY ==
[2023-12-08 09:47] VITALS: BMI 21.4
[2024-02-06 08:22] VITALS: BMI 22.8
[2024-03-07] VITALS (8 sets, daily range): BP systolic 133–172; BP diastolic 70–92; PULSE 66–94; RESP 12–17; TEMP 35.9–36.2; O2SAT 96–98; BMI 22.8
--- NOTE | 2024-03-07 13:57 | PM.HP.1 ---
History of Present Illness History of Present Illness Date Patient Seen: 03/07/24 Time Patient Seen: 13:57 Chief complaint: SDC Narrative: 83-year-old man here for symptomatic right inguinal hernia containing bladder. Within the past 30 days he had cellulitis now resolved. Please refer H&P from January 2024 further detail. [facility] Medical History Right inguinal hernia Yeast UTI Johnston catheter in place History of prostate cancer History of bladder stone Lower urinary tract symptoms PVD (peripheral vascular disease) Prostate cancer Surgical History History of bladder surgery History of transurethral resection of prostate S/P hip replacement Family History Brother Hearing impairment Social History marital status: unmarried,single number of children: 0 household members: none lives independently: Yes Smoking Status: Never smoker alcohol intake: current substance use type: does not use caffeine: Yes Type(s) of exercise: none Meds Home Medications and Allergies Home Medications Medication Instructions Recorded Confirmed Type atorvastatin 40 mg tablet 80 mg PO DAILY 09/13/23 02/13/24 History ciprofloxacin HCl 500 mg tablet 500 mg PO BID #30 tabs 02/13/24 02/13/24 Rx torsemide 20 mg tablet 20 mg PO DAILY 02/13/24 02/13/24 History clindamycin HCl 300 mg capsule 300 mg PO TID #15 caps 02/17/24 Rx Allergies Allergy/AdvReac Type Severity Reaction Status Date / Time Penicillins [PENICILLINS] Allergy Severe LIKE Verified 02/13/24 22:26 GOING INTO SHOCK Exam Narrative Exam Narrative: General elderly man alert oriented no acute distress Abdomen soft right inguinal hernia marked with my initials Assessment & Plan Assessment and plan (1) Right inguinal hernia: Status: Acute Assessment & Plan narrative: 83-year-old man with a symptomatic bladder containing right inguinal hernia here for elective open repair. Risks benefits alternatives once again reviewed. He provides his consent to proceed.
[2024-03-07] MEDS: LACTATED RINGERS 1,000 ML 21 ML IV ×2 (14:30→15:02)
[2024-03-07] MEDS: CLINDAMYCIN 900 MG/50 ML PIGGYBACK 50 MG IV (14:42)
--- NOTE | 2024-03-07 14:54 | SUR.OPER ---
Supine on padded OR bed, head on pillow, arms secured on padded arm boards at <90 degrees abduction, legs uncrossed, safety belt at thigh, tape over blanket over lower legs.
[2024-03-07] MEDS: BUPIVACAINE 0.25% (PF) VIAL 30 ML INJ (14:57)
[2024-03-07] MEDS: OXYCODONE/ACETAMINOPHEN 5/325 TABLET 1 TAB PO (16:15)
[2024-03-07] MEDS: ONDANSETRON 4 MG/2 ML INJ IV (16:15)
--- NOTE | 2024-03-07 16:46 | PM.OP.1 ---
Operative Date/Time/Diagnoses Date of procedure: 03/07/24 Time of procedure: 16:46 Pre-op diagnosis: Right inguinal Post-op diagnosis: same Procedure & Clinicians Procedure: Open repair of right inguinal hernia Same procedure as scheduled: Yes Indications: 83-year-old man with a symptomatic reducible right inguinal hernia containing bladder here for elective repair. Surgeon: Javad Rodriguez Click Yes if Unassisted: Yes Anesthesia Type: General Operative Notes Findings: Direct floor defect Specimen(s): none sent Estimated Blood Loss (mL): 20 Procedure in detail: The patient was placed supine on the table and bilateral lower extremity compression devices were applied. Anesthesia was induced they were intubated with an LMA and received Ancef. A time-out was performed. They were prepped and draped in sterile fashion. The right external inguinal ring and the anterior superior iliac crest were identified and marked. 1 finger breath above the inguinal ligament the skin was infiltrated with 0.25% bupivacaine. The skin incision was made, the subcutaneous tissues were divided with electrocautery exposing the external oblique aponeurosis which was then opened along the direction of its fibers. Using blunt dissection the internal oblique aporneurosis was from the external oblique upper leaflet. The cord was carefully dissected away from the inguinal canal adjacent to the pubic tubercle. The cord including the vas deferens, testicular bloody supply, ilioguinal and genital nerve were encircled with a Peter drain. A direct floor defect was identified. The floor was then opened and using blunt dissection the intra-abdominal content was dissected off of the floor. The balloon within the Johnston catheter was palpable. The floor was then closed using 3-0 Vicryl suture. The cremasteric fibers surrounding the cord were divided adjacent to the internal ring. The vas deferens and the testicular vessels were preserved and protected. The cord contents were carefully explored. There was no evidence of a indirect hernia. A 7x 15 cm lightweight Bard Pro Loop hernia mesh was anchored to the insertion of the rectus muscle at the pubic tubercle such that there was approximately 2 cm of tubercle overlap with Ethibond. The inferior edge of the mesh was secured to the shelving edge of the inguinal ligament using Ethibond. Interrupted 3 0 Vicryl suture was used to anchor the superior aspect of the mesh to the conjoined tendon in several places. The tails were then reapproximated loosely around the spermatic cord. The tails of the mesh were then tucked under the external oblique aponeurosis. The repair was checked for hemostasis. The wound was irrigated with sterile saline. The external oblique aponeurosis was reapproximated in a running fashion using 3 0 Vicryl. The subcutaneous tissues were reapproximated with 3 0 Vicryl skin closed with 4 0 Monocryl followed by the application of Dermabond. At the end of the operation I ensured that both testicles were within the scrotum. The sponge instrument count at the end operation was correct. The patient emerged from anesthesia was extubated and transferred to the postoperative care unit in stable condition. A total of 30 ml of of 0.25% bupivicaine was used to infiltrate the skin. Complications: none Post-operative Condition: stable Disposition: same day surgery
== END 2024-03-07 16:53 | disposition home or self-care (01) ==
PROVIDERS: PCP Family Medicine; Referring Provider Surgery; Visit Provider Surgery
PROC: (CPT 49505; principal; 2024-03-07 14:45)
DX: K40.90 Unilateral inguinal hernia, without obstruction or gangrene, not specified as recurrent (principal)
CPT/HCPCS: 49505; J0330; J1100; J2405; J2704; J3010

== ENCOUNTER → 2024-03-12 14:27 | Outpatient (CLI) | payer OTHER, SELFPAY ==
[2024-02-13 22:25] VITALS: BMI 21.9
== END ==
PROVIDERS: PCP Family Medicine; Visit Provider Urology
DX: R33.9 Retention of urine, unspecified (principal)
CPT/HCPCS: 87077; 87086

== ENCOUNTER → 2024-07-13 12:51 | Outpatient (CLI) | payer OTHER, SELFPAY ==
[2024-07-13 12:56] LABS: Appearance Urine UA CLEAR; Bilirubin Urine UA NEGATIVE (NEGATIVE); Color Urine UA YELLOW; Glucose Urine UA NEGATIVE (Negative); Ketones Urine UA NEGATIVE (NEGATIVE); Leukocyte Esterase Urine UA 3+ (NEGATIVE); Nitrite Urine UA NEGATIVE (Negative); Occult Blood Urine UA 2+ (Negative); Protein Urine UA NEGATIVE (Negative); Urobilinogen Urine UA 0.2 E.U./dL (0.2); pH Urine UA 5.5 (4.5-8.0)
[2024-07-13 13:15] LABS: Bacteria Urine Many (>30); Culture Indicated Urine Specimen Cultured; RBC Urine 1-5/HPF (0-5/HPF); Squamous Epithelial Cell Urine None Seen (0-5/HPF); Urine Volume 10mL (spun); WBC Urine 30-100/HPF (0-5/HPF); White Blood Cell Casts Urine 1-5/LPF
== END ==
PROVIDERS: PCP Family Medicine; Visit Provider Urology
DX: R39.9 Unspecified symptoms and signs involving the genitourinary system (principal)
CPT/HCPCS: 81001; 87077; 87086; 87186

== ENCOUNTER 2024-07-15 06:31 | Emergency (ER) | payer OTHER, SELFPAY ==
[2024-07-15 06:39] VITALS: BP 178/98; PULSE 88; RESP 15; TEMP 36.9; O2SAT 98; BMI 23.3
[2024-07-15 07:12] LABS: Bacteria Urine Many (>30); Culture Indicated Urine Specimen Cultured; Hyaline Casts Urine 0-1/LPF; RBC Urine 0-1/HPF (0-5/HPF); Squamous Epithelial Cell Urine 0-1 /HPF (0-5/HPF); Urine Volume 10mL (spun); WBC Urine >100/HPF (0-5/HPF)
--- NOTE | 2024-07-15 07:23 | ED.GENADULT ---
HPI - General Adult General Chief complaint: Urogenital-Male Stated complaint: bladder infection Time Seen by Provider: 07/15/24 07:01 Source: patient Mode of arrival: Ambulatory Limitations: no limitations History of Present Illness HPI narrative: Patient is an 83-year-old male. Has had frequent issues with urinary retention in the past however he states he does not feel like he is retaining urine now. He was having no lower abdominal pain. No fevers. No vomiting. No change in bowel habits. At the end of last week he started to have dysuria. Change in color of his urine. Change in smell of his urine. Concern for urinary tract infection. He has had urinary tract infections in the past. He had a urine sample obtained at the end of last week by the urology clinic. He does not know the results of the sample. This morning he woke up and thought that he had ?pus? in his urine sample. States overall he feels well. Comes in the emergency department for his urinary symptoms. Related Data Home Medications Medication Instructions Recorded Confirmed torsemide 20 mg tablet 20 mg PO DAILY 02/13/24 06/21/24 tamsulosin 0.4 mg capsule 0.8 mg PO DAILY 05/10/24 06/21/24 atorvastatin 80 mg tablet mg PO 06/21/24 06/21/24 Previous Rx's Medication Instructions Recorded nitrofurantoin 100 mg PO Q12H 5 days #10 caps 07/15/24 monohydrate/macrocrystals 100 mg capsule (Macrobid) Allergies Allergy/AdvReac Type Severity Reaction Status Date / Time Penicillins [PENICILLINS] Allergy Severe LIKE Verified 06/21/24 14:32 GOING INTO SHOCK Review of Systems Constitutional Constitutional: Reports system reviewed and no additional complaints, except as documented Gastrointestinal Gastrointestinal: Reports system reviewed and no additional complaints, except as documented Genitourinary Genitourinary: Reports system reviewed and no additional complaints, except as documented Patient History Medical History Right inguinal hernia Yeast UTI Johnston catheter in place History of prostate cancer History of bladder stone Lower urinary tract symptoms PVD (peripheral vascular disease) Prostate cancer Surgical History History of bladder surgery History of transurethral resection of prostate S/P hip replacement Family History Brother Hearing impairment Social History marital status: unmarried,single number of children: 0 household members: none lives independently: Yes Smoking Status: Never smoker alcohol intake: current substance use type: does not use caffeine: Yes Type(s) of exercise: none Smoking Status: Never smoker alcohol intake frequency: 3 or more drinks per day Alcohol type: wine Substance Use Type: does not use Exam Initial Vital Signs Initial Vital Signs: Vital Signs Temperature 98.5 F 07/15/24 06:39 Pulse Rate 88 07/15/24 06:39 Respiratory Rate 15 07/15/24 06:39 Blood Pressure 178/98 H 07/15/24 06:39 Pulse Oximetry 98 07/15/24 06:39 Oxygen Delivery Method Room Air 07/15/24 06:39 HENMT Head: normal to inspection and atraumatic GI Inspection: normal to inspection and non-distended Back/Spine/Pelvis Back: No CVA tenderness Course Orders Ordered: ED Orders 07/15/24 06:45 Urine Culture Stat Urine Microscopic Stat Discontinued Medications Nitrofurantoin Macrocrystals (Nitrofurantoin Er 100 Mg Capsule) 100 mg PO NOW ONE Stop: 07/15/24 07:26 Vital Signs Vital signs: Vital Signs - 8 hr 07/15/24 06:39 Temperature 98.5 F Pulse Rate 88 Respiratory Rate 15 Blood Pressure 178/98 H Pulse Oximetry 98 Oxygen Delivery Method Room Air Medical Decision Making Medical Records Medical records reviewed: Yes I reviewed the patient's medical records. Lab Data Lab results reviewed: Yes I reviewed the patient's lab results. Labs: Lab Results 07/15/24 Range/Units 06:45 Urine RBC 0-1/hpf (0-5/HPF) Urine WBC >100/hpf H (0-5/HPF) Ur Squamous Epith Cells 0-1 /hpf (0-5/HPF) Urine Bacteria Many (>30) H (None) Hyaline Casts 0-1/lpf (None) Ur Culture Indicated? Specimen cultured Micro UA Comment Vol Urine Centrifuged 10ml (spun) Urine Dip Bedside Urine Glucose Negative Bedside Urine Bilirubin - Negative Bedside Urine Ketone - Negative Urine Specific Compton 1.020 Bedside Urine Occult Blood ++ Bedside Urine pH 6.0 Bedside Urine Protein +/- 15 Bedside Urine Urobilinogen - Negative Bedside Urine Nitrite - Negative Bedside Urine Leukocytes +++ 500 Esterase Point of care testing: Urine Dip Bedside Urine Glucose Negative Bedside Urine Bilirubin - Negative Bedside Urine Ketone - Negative Urine Specific Compton 1.020 Bedside Urine Occult Blood ++ Bedside Urine pH 6.0 Bedside Urine Protein +/- 15 Bedside Urine Urobilinogen - Negative Bedside Urine Nitrite - Negative Bedside Urine Leukocytes +++ 500 Esterase MDM Narrative Medical decision making narrative: Patient appears very well. Is afebrile. Not tachycardic. He reports that he feels like he was not retaining urine. No lower abdominal tenderness. Is having symptoms consistent with a urinary tract infection. His urinalysis today is consistent with an infection. A review of the urinalysis from the end of last week is also consistent with an infection. He was not currently on antibiotics. Is tolerating oral intake. Review of his medical record shows that past urine cultures have had bacteria that have been susceptible to Macrobid. He was given 1st dose here in the ER. A prescription was sent to pharmacy of his choice. He understands there is a urine culture pending today and we will contact him if we need to change antibiotics based on this. He was given return precautions. I have low suspicion for pyelonephritis. Patient expressed understanding and agreement with plan. Discharge Plan Departure Patient Disposition: Home Clinical Impression: Urinary tract infection Instructions: DI for Urinary Tract Infection (UTI) Activity Restrictions/Additional Instructions: [facility] Please pick it up today and start taking it as directed. There was a urine culture pending at the time of your discharge. We will contact you if we need to change antibiotics based on this. Recommend you contact your primary doctor and also your urologist for follow-up. Return to emergency department for new or worsening symptoms Prescriptions: New nitrofurantoin monohyd/m-cryst [Macrobid] 100 mg capsule 100 mg PO Q12H 5 Days Qty: 10 0RF Rx Instructions: must administer with a meal/food No Action atorvastatin 80 mg tablet PO torsemide 20 mg tablet 20 mg PO DAILY tamsulosin 0.4 mg capsule 0.8 mg PO DAILY Referrals: Kraig Ramey MD [Primary Care Provider] - Stand Alone Forms: Patient Portal/API
[2024-07-15] MEDS: NITROFURANTOIN ER 100 MG CAPSULE PO (07:34)
[2024-07-15 07:39] VITALS: BP 174/88; PULSE 84; RESP 16; O2SAT 97
== END 2024-07-15 07:39 | disposition home or self-care (01) ==
PROVIDERS: Emergency Medicine; Emergency Provider Emergency Medicine; PCP Family Medicine
DX: N39.0 Urinary tract infection, site not specified (principal)
CPT/HCPCS: 81003; 81015; 87077; 87086; 87186; 99283

== ENCOUNTER → 2025-03-05 07:42 | Outpatient (CLI) | payer OTHER, SELFPAY ==
[2025-03-05 08:22] LABS: Add Manual Diff / Slide Review NO; Basophils Absolute Auto 100 /uL (0-100); Basophils Percent Auto 1.9 % (0-2); Eosinophils Absolute Auto 100 /uL (0-450); Hematocrit 37.4 % (41-53); Hemoglobin 12.9 g/dL (13.5-17.5); Lymphocytes Absolute Auto 900 /uL (1100-4500); Mean Corpuscular HGB Conc 34.6 % (30-36); Mean Corpuscular Hemoglobin 33.9 PG (26-34); Mean Corpuscular Volume 98.2 fL (80-100); Monocytes Absolute Auto 400 /uL (0-900); Monocytes Percent Auto 12.6 % (3-14); Neutrophils Absolute Auto 1800 /uL (1500-7000); Neutrophils Percent Auto 54.5 % (50-75); Platelet Count 202 X10^3/uL (150-400); Red Cell Distribution Width 13.8 % (11.6-14.8); White Blood Cell Count 3.4 X10^3/uL (4.5-11.0)
[2025-03-05 08:51] LABS: Alanine Aminotransferase 22 IU/L (<50); Albumin 4.5 g/dL (3.5-5.0); Albumin Globulin Ratio 1.5 (1.0-2.8); Alkaline Phosphatase 99 U/L (38-126); Aspartate Aminotransferase 36 IU/L (17-59); BUN Creatinine Ratio 28.3 (6-22); Bilirubin Total 0.9 mg/dL (0.2-1.3); Blood Urea Nitrogen 34 mg/dL (9-20); Calcium 9.4 mg/dL (8.4-10.2); Carbon Dioxide 29 mmol/L (22-32); Chloride 100 mmol/L (98-107); Cholesterol 209 mg/dL (140-199); Estimated Glomerular Filt Rate > 60 mL/min (>60); Glucose 89 mg/dL (70-99); HDL Cholesterol 77 mg/dL (40-60); HEMOLYSIS < 15 (0-50); LDL Cholesterol Calculated 115 mg/dL (<100); Potassium 4.2 mmol/L (3.4-5.1); Sodium 139 mmol/L (137-145); Total Protein 7.5 g/dL (6.3-8.2); Triglycerides 85 mg/dL (35-150)
[2025-03-05 09:04] LABS: Free T4, Direct Thyroxine 0.99 ng/dL (0.78-2.19)
[2025-03-05 09:19] LABS: Thyroid Stimulating Hormone 1.15 uIU/mL (0.47-4.68)
[2025-03-05 09:21] LABS: Prostate Specific Antigen 4.03 ng/mL (0.10-4.00)
== END ==
LOC: LAB 07:43
PROVIDERS: PCP Family Medicine; Referring Provider Family Medicine; Visit Provider Family Medicine
DX: E78.2 Mixed hyperlipidemia (principal); Z12.5 Encounter for screening for malignant neoplasm of prostate; I10 Essential (primary) hypertension; R63.4 Abnormal weight loss; R60.0 Localized edema
CPT/HCPCS: 36415; 80053; 80061; 84153; 84439; 84443; 85025